=== PATIENT | female | born 1940 | race Caucasian/White ===

== ENCOUNTER 2017-03-12 11:23 | Outpatient (CLI) | payer MEDICARE, BC ==
[2017-03-12 19:18] LABS: BASOPHILS # (AUTO) 0.1 10^3/uL (0.0-0.1); EOSINOPHILS # (AUTO) 0.4 10^3/uL (0.0-0.7); EOSINOPHILS % (AUTO) 6.5 %; HCT - HEMATOCRIT 42.1 % (37.0-47.0); HGB - HEMOGLOBIN 14.1 g/dL (12.0-16.0); LYMPHOCYTES # (AUTO) 1.4 10^3/uL (1.5-3.5); LYMPHOCYTES % (AUTO) 23.5 %; MEAN CORPUSCULAR HEMOGLOBIN 32.1 pg (27.0-31.0); MEAN CORPUSCULAR HGB CONC 33.6 g/dL (32.0-36.0); MEAN CORPUSCULAR VOLUME 95.8 fL (81.0-99.0); MEAN PLATELET VOLUME 8.6 fL (7.9-10.8); MONOCYTES # (AUTO) 0.5 10^3/uL (0.0-1.0); MONOCYTES % (AUTO) 7.8 %; NEUTROPHILS # (AUTO) 3.6 10^3/uL (1.5-6.6); NEUTROPHILS % (AUTO) 60.2 %; NUCLEATED RED BLOOD CELLS AUTO 0.1 /100WBC; RED BLOOD COUNT 4.39 10^6/uL (4.20-5.40); RED CELL DISTRIBUTION WIDTH 12.5 % (12.0-15.0)
[2017-03-12 19:26] LABS: ALBUMIN/GLOBULIN RATIO 1.2 (1.0-2.2); BILIRUBIN,TOTAL 0.8 mg/dL (0.2-1.0); BUN - BLOOD UREA NITROGEN 18 mg/dL (6-20); CARBON DIOXIDE - CO2 26 mmol/L (21-32); CHLORIDE 105 mmol/L (101-111); CHOL/HDL RATIO 4.7 (<4.4); CHOLESTEROL 297 mg/dL; CREATININE 0.9 mg/dL (0.4-1.0); GFR - MDRD 61 (>89); GLUCOSE 109 mg/dL (70-100); HDL CHOLESTEROL 63 mg/dL; LDL/HDL RATIO 3.5 (<4.4); POTASSIUM 3.9 mmol/L (3.5-5.0); SODIUM 139 mmol/L (135-145); TOTAL PROTEIN 7.6 g/dL (6.7-8.2); TRIGLYCERIDES 79 mg/dL; VLDL CHOLESTEROL 16 mg/dL
== END 2017-03-12 11:24 | disposition home or self-care (01) ==
LOC: LAB.WCP 11:23
PROVIDERS: ATTEND Physician Assistant Medical
DX: E78.5 Hyperlipidemia, unspecified (principal); R21 Rash and other nonspecific skin eruption
CPT/HCPCS: 36415; 80053; 80061; 85025

== ENCOUNTER 2017-04-08 08:44 | Outpatient (CLI) | payer MEDICARE, BC ==
--- NOTE | 2017-04-08 11:00 | Ultrasound Report ---
LEFT BREAST ULTRASOUND: 04/08/2017 CLINICAL INDICATION: Nodule on diagnostic. TECHNIQUE: Real-time scanning was performed with franchise sales representative static images obtained. FINDINGS: Ultrasound of the left upper inner quadrant was performed. At the 10 o'clock position, 4 cm from the nipple, there is a hypoechoic lobulated nodule, measuring 1 .7 x 1.6 x 1.4 cm. There is peripheral vascularity and posterior acoustic shadowing. Scanning of the left axilla demonstrates no adenopathy. IMPRESSION: SUSPICIOUS ABNORMALITY, WITH A HYPOECHOIC LOBULATED NODULE CORRELATING WITH THE MAMMOGRA PHIC ABNORMALITY. RECOMMENDATION: BIOPSY. THE NODULE APPEARS AMENABLE TO ULTRASOUND-GUIDED CORE NEEDLE BIOPSY. BIRADS CATEGORY 4-SUSPICIOUS ABNORMALITY. Results and recommendations discussed with the patient at the time of the examination, and called to the office of Martha Call PA-C, on 04/08/2017. Biopsy is scheduled for 04/23/2017 at 9:45 a.m. JOB #: [id number] EXT JOB #:[id number]
--- NOTE | 2017-04-08 13:37 | Mammography Report ---
DIAGNOSTIC LEFT MAMMOGRAM: 04/08/2017 CLINICAL INDICATION: Possible developing density on screening. COMPARISON: 03/22/2017, 02/13/2016 TECHNIQUE: Left true lateral and spot compression views. FINDINGS: The left breast again demonstrates heterogeneously dense fibroglandular parenchyma. Coars e and punctate, typically benign calcifications are present. The density in question, in the left up per inner quadrant persists on additional compression, measuring approximately 1.8 cm. Please also r efer to left breast ultrasound of the same day. IMPRESSION: SUSPICIOUS ABNORMALITY, WITH A HYPOECHOIC LOBULATED LESION ON ULTRASOUND CORRELATING WIT H THE MAMMOGRAPHIC DENSITY. RECOMMENDATION: Biopsy. The nodule appears amenable to ultrasound-guided core needle biopsy. BIRADS CATEGORY 4 - SUSPICIOUS ABNORMALITY. RESULTS AND RECOMMENDATIONS DISCUSSED WITH THE PATIENT AT THE TIME OF THE EXAMINATION, AND CALLED TO THE OFFICE OF MATTHIAS DINH PA-C, ON 04/08/2017. BIOPSY IS SCHEDULED FOR 04/23/2017 AT 9:45 A.M. STANDARD QUALIFYING STATEMENTS 1. This examination was reviewed with the aid of Computer-Aided Detection (CAD). 2. A negative or benign imaging report should not delay biopsy if clinically suspicious findings are present. Consider surgical consultation if warranted. More than 5% of cancers are not identified by i wayne. 3. Dense breasts may obscure an underlying neoplasm. JOB #: [id number] EXT JOB #:[id number]
== END 2017-04-08 08:45 | disposition home or self-care (01) ==
LOC: DI 08:44
PROVIDERS: ATTEND Physician Assistant Medical
DX: N63.22 Unspecified lump in the left breast, upper inner quadrant (principal)
CPT/HCPCS: 76642; G0206

== ENCOUNTER 2017-04-23 09:23 | Outpatient (CLI) | payer MEDICARE, BC ==
[2017-04-23] MEDS ORDERED: BUPIVACAINE 0.25%-EPI 1:200000 PF 30 ML VIAL SUBQ ONE (11:03)
[2017-04-23] MEDS ORDERED: BUFFERED LIDOCAINE 10 ML SYRINGE IU ONE (11:03)
--- NOTE | 2017-04-23 12:32 | Ultrasound Report ---
REVISED: THIS REPORT WAS ORIGINALLY SIGNED ON 04/23/2017 @ 1314. NO CHANGES WERE MADE TO THE REPORT. THE ORIGINAL [facility] REQUISITION WAS REPRINTED ON 11/2016. ULTRASOUND-GUIDED BIOPSY LEFT BREAST: 04/23/2017 [employer]: 10 o'clock position 4 cm from the nipple, hypoechoic lobulated 1.6 x 1.7 x 1.4 cm mass. PROCEDURE: Informed consent is obtained from the patient. Ultrasound is used to locate and sandie the left breast mass. Using sterile technique and after the infiltration of local anesthetic of 1% lidocaine and Sensorcaine, a small skin kentrell is performed. Using a 14-gauge Achieve needle, four passes are made through the mass with image confirmation of needle position within the mass. A secure sandie Celero clip was then placed at the biopsy site. Post-procedure left breast mammogram confirms appropriate positioning of the clip with respect to the biopsy site. Patient tolerated the procedure well. Patient is scheduled for a followup appointment with Dr. Noguera. IMPRESSION: SUCCESSFUL LEFT BREAST CORE BIOPSY USING ULTRASOUND GUIDANCE. AN ADDENDUM WILL BE MADE TO THIS REPORT WHEN PATHOLOGY IS REVIEWED TO ESTABLISH CONCORDANCE. JOB #: [id number] EXT JOB #: [id number] TOYA
[2017-04-25 21:07] VITALS: BP 114/68
== END 2017-04-23 09:24 | disposition home or self-care (01) ==
LOC: DI 09:23
PROVIDERS: ATTEND Physician Assistant Medical
DX: C50.212 Malignant neoplasm of upper-inner quadrant of left female breast (principal); Z17.1 Estrogen receptor negative status [ER-]
CPT/HCPCS: 19083; G0206

== ENCOUNTER 2017-09-13 09:06 | Outpatient (CLI) | payer MEDICARE, BC ==
[2017-09-13 13:31] LABS: BASOPHILS % (AUTO) 0.4 %; EOSINOPHILS % (AUTO) 0.1 %; HGB - HEMOGLOBIN 12.7 g/dL (12.0-16.0); LYMPHOCYTES % (AUTO) 2.6 %; MEAN CORPUSCULAR HEMOGLOBIN 31.8 pg (27.0-31.0); MEAN CORPUSCULAR VOLUME 96.3 fL (81.0-99.0); MEAN PLATELET VOLUME 8.9 fL (7.9-10.8); MONOCYTES % (AUTO) 0.6 %; NEUTROPHILS % (AUTO) 96.3 %; PLT - PLATELET COUNT 324 10^3/uL (130-450); RED BLOOD COUNT 3.99 10^6/uL (4.20-5.40); RED CELL DISTRIBUTION WIDTH 14.5 % (12.0-15.0); WHITE BLOOD COUNT 23.2 x10^3/uL (4.8-10.8)
[2017-09-13 13:48] LABS: ALBUMIN 3.9 g/dL (3.2-5.5); ALBUMIN/GLOBULIN RATIO 1.1 (1.0-2.2); ALKALINE PHOSPHATASE 93 IU/L (42-121); ALT ALANINE AMINOTRANSFERASE 16 IU/L (10-60); AST ASPARTATE AMINOTRANSFERASE 31 IU/L (10-42); BILIRUBIN,TOTAL 0.8 mg/dL (0.2-1.0); BUN - BLOOD UREA NITROGEN 15 mg/dL (6-20); CALCIUM 9.2 mg/dL (8.5-10.3); CARBON DIOXIDE - CO2 22 mmol/L (21-32); CHLORIDE 104 mmol/L (101-111); CREATININE 0.7 mg/dL (0.4-1.0); GFR - MDRD 82 (>89); GLUCOSE 116 mg/dL (70-100); SODIUM 135 mmol/L (135-145); TOTAL PROTEIN 7.4 g/dL (6.7-8.2)
[2017-09-13 14:26] LABS: ABNORMAL LYMPHS % (MANUAL) 0 %
[2017-09-13 14:34] LABS: BAND NEUTROPHILS % (MANUAL) 3 %; BASOPHILS # (MANUAL) 0.2 10^3/uL (0-0.1); BASOPHILS % (MANUAL) 1 %; LYMPHOCYTES # (MANUAL) 0.2 10^3/uL (1.5-3.5); LYMPHOCYTES % (MANUAL) 1 %; METAMYELOCYTES % (MANUAL) 6 %; MONOCYTES # (MANUAL) 0.5 10^3/uL (0.0-1.0); MYELOCYTES % (MANUAL) 1 %; NEUTROPHILS # (MANUAL) 20.6 10^3/uL (1.5-6.6); NEUTROPHILS % (MANUAL) 86 %
[2017-09-13 14:36] LABS: RBC MORPHOLOGY (MULTIPLE) 2+ ANISOCYTOSIS (NORMAL)
[2017-09-13 14:38] LABS: DIFFERENTIAL COMMENT MANUAL DIFFERENTIAL; PLATELET MORPHOLOGY RARE GIANT PLATELETS (NORMAL)
== END 2017-09-13 09:07 | disposition home or self-care (01) ==
LOC: LAB.WCP 09:06
PROVIDERS: ATTEND Family Medicine
DX: R00.0 Tachycardia, unspecified (principal); C50.212 Malignant neoplasm of upper-inner quadrant of left female breast
CPT/HCPCS: 36415; 80053; 84443; 85025

== ENCOUNTER 2019-08-04 08:00 | Outpatient (CLI) | payer MEDICARE, BC ==
[2019-08-04 12:54] LABS: ALBUMIN 3.8 g/dL (3.2-5.5); ALBUMIN/GLOBULIN RATIO 1.2 (1.0-2.2); ALKALINE PHOSPHATASE 79 IU/L (42-121); ALT ALANINE AMINOTRANSFERASE 14 IU/L (10-60); AST ASPARTATE AMINOTRANSFERASE 40 IU/L (10-42); BILIRUBIN,TOTAL 0.8 mg/dL (0.2-1.0); BUN - BLOOD UREA NITROGEN 18 mg/dL (6-20); CALCIUM 9.5 mg/dL (8.5-10.3); CARBON DIOXIDE - CO2 25 mmol/L (21-32); CHLORIDE 105 mmol/L (101-111); CHOL/HDL RATIO 7.3 (<4.4); CHOLESTEROL 338 mg/dL; GFR - MDRD 54 (>89); GLUCOSE 97 mg/dL (70-100); HDL CHOLESTEROL 46 mg/dL; LDL CHOLESTEROL,CALCULATED 261 mg/dL; LDL/HDL RATIO 5.7 (<4.4); SODIUM 138 mmol/L (135-145); TOTAL PROTEIN 7.1 g/dL (6.7-8.2); VLDL CHOLESTEROL 31 mg/dL
== END 2019-08-04 23:59 | disposition home or self-care (01) ==
LOC: LAB.WCP 08:00
PROVIDERS: ATTEND Physician Assistant Medical
DX: E78.5 Hyperlipidemia, unspecified (principal)
CPT/HCPCS: 36415; 80053; 80061; 83721

== ENCOUNTER 2020-09-23 09:46 | Outpatient (CLI) | payer MEDICARE, BC ==
[2020-09-23 12:08] LABS: BASOPHILS # (AUTO) 0.1 10^3/uL (0.0-0.1); BASOPHILS % (AUTO) 1.3 %; EOSINOPHILS # (AUTO) 0.5 10^3/uL (0.0-0.7); EOSINOPHILS % (AUTO) 5.2 %; HCT - HEMATOCRIT 44.7 % (37.0-47.0); HGB - HEMOGLOBIN 14.7 g/dL (12.0-16.0); LYMPHOCYTES # (AUTO) 2.2 10^3/uL (1.5-3.5); LYMPHOCYTES % (AUTO) 24.7 %; MEAN CORPUSCULAR HEMOGLOBIN 31.9 pg (27.0-31.0); MEAN CORPUSCULAR HGB CONC 32.9 g/dL (32.0-36.0); MEAN PLATELET VOLUME 11.2 fL (7.9-10.8); MONOCYTES # (AUTO) 0.7 10^3/uL (0.0-1.0); MONOCYTES % (AUTO) 8.4 %; NEUTROPHILS # (AUTO) 5.2 10^3/uL (1.5-6.6); NEUTROPHILS % (AUTO) 59.6 %; PLT - PLATELET COUNT 231 10^3/uL (130-450); RED BLOOD COUNT 4.61 10^6/uL (4.20-5.40); RED CELL DISTRIBUTION WIDTH 12.5 % (12.0-15.0); WHITE BLOOD COUNT 8.7 x10^3/uL (4.8-10.8)
[2020-09-23 12:29] LABS: ALBUMIN/GLOBULIN RATIO 1.1 (1.0-2.2); ALKALINE PHOSPHATASE 84 IU/L (42-121); ALT ALANINE AMINOTRANSFERASE 14 IU/L (10-60); AST ASPARTATE AMINOTRANSFERASE 34 IU/L (10-42); BILIRUBIN,TOTAL 0.6 mg/dL (0.2-1.0); BUN - BLOOD UREA NITROGEN 16 mg/dL (6-20); CALCIUM 9.7 mg/dL (8.5-10.3); CARBON DIOXIDE - CO2 26 mmol/L (21-32); CHLORIDE 105 mmol/L (101-111); CHOL/HDL RATIO 6.4 (<4.4); CHOLESTEROL 334 mg/dL; GFR - MDRD 54 (>89); GLUCOSE 100 mg/dL (70-100); HDL CHOLESTEROL 52 mg/dL; LDL CHOLESTEROL,CALCULATED 241 mg/dL; LDL/HDL RATIO 4.6 (<4.4); SODIUM 142 mmol/L (135-145); TOTAL PROTEIN 7.7 g/dL (6.7-8.2); TRIGLYCERIDES 203 mg/dL; VLDL CHOLESTEROL 41 mg/dL
== END 2020-09-23 09:47 | disposition home or self-care (01) ==
LOC: LAB.N 09:46
PROVIDERS: ATTEND Physician Assistant Medical
DX: E78.5 Hyperlipidemia, unspecified (principal); R06.09 Other forms of dyspnea; C50.212 Malignant neoplasm of upper-inner quadrant of left female breast
CPT/HCPCS: 36415; 80053; 80061; 83721; 83880; 85025

== ENCOUNTER 2020-09-23 09:57 | Outpatient (CLI) | payer MEDICARE, BC ==
--- NOTE | 2020-09-23 10:27 | XRAY Report ---
PROCEDURE: Chest 2 View X-Ray INDICATIONS: DYSPNEA ON EXERTION TECHNIQUE: 2 views of the chest. COMPARISON: None. FINDINGS: Surgical changes and devices: Surgical clips are seen projecting over the left breast and left axilla . Lungs and pleura: No pleural effusions or pneumothorax. Lungs are clear. Mediastinum: Mediastinal contours are normal. Heart size is normal. Mild to moderate aortic athero sclerotic calcifications. Bones and chest wall: No suspicious bony abnormalities. Soft tissues appear unremarkable. Multilev el degenerative changes are seen in the spine. Chronic appearing fracture deformity of the left proxi mal humerus. IMPRESSION: No acute cardiopulmonary abnormality. Reviewed by: Davion Montana MD on 09/23/2020 10:25 AM PDT Approved by: Davion Montana MD on 09/23/2020 10:25 AM PDT Station ID: [id number]
== END 2020-09-23 09:58 | disposition home or self-care (01) ==
LOC: LAB.N 09:57 → DI.N 09:58
PROVIDERS: ATTEND Physician Assistant Medical
DX: R06.09 Other forms of dyspnea (principal); E78.5 Hyperlipidemia, unspecified; C50.212 Malignant neoplasm of upper-inner quadrant of left female breast
CPT/HCPCS: 36415; 80053; 80061; 83721; 83880; 85025

== ENCOUNTER 2021-09-21 07:38 | Outpatient (CLI) | payer MEDICARE, BC ==
[2021-09-21 13:12] LABS: BASOPHILS # (AUTO) 0.1 10^3/uL (0.0-0.1); BASOPHILS % (AUTO) 1.3 %; EOSINOPHILS # (AUTO) 0.3 10^3/uL (0.0-0.7); EOSINOPHILS % (AUTO) 4.1 %; HCT - HEMATOCRIT 45.1 % (37.0-47.0); HGB - HEMOGLOBIN 14.7 g/dL (12.0-16.0); LYMPHOCYTES # (AUTO) 1.9 10^3/uL (1.5-3.5); LYMPHOCYTES % (AUTO) 31.8 %; MEAN CORPUSCULAR HEMOGLOBIN 31.3 pg (27.0-31.0); MEAN CORPUSCULAR HGB CONC 32.6 g/dL (32.0-36.0); MEAN CORPUSCULAR VOLUME 96.2 fL (81.0-99.0); MEAN PLATELET VOLUME 10.6 fL (7.9-10.8); MONOCYTES # (AUTO) 0.6 10^3/uL (0.0-1.0); NEUTROPHILS # (AUTO) 3.2 10^3/uL (1.5-6.6); NEUTROPHILS % (AUTO) 52.3 %; PLT - PLATELET COUNT 209 10^3/uL (130-450); RED BLOOD COUNT 4.69 10^6/uL (4.20-5.40); RED CELL DISTRIBUTION WIDTH 12.5 % (12.0-15.0); WHITE BLOOD COUNT 6.1 x10^3/uL (4.8-10.8)
[2021-09-21 13:56] LABS: THYROID STIMULATING HORMONE 3.94 uIU/mL (0.34-5.60)
[2021-09-21 14:01] LABS: ALKALINE PHOSPHATASE 76 IU/L (42-121); ALT ALANINE AMINOTRANSFERASE 16 IU/L (10-60); AST ASPARTATE AMINOTRANSFERASE 37 IU/L (10-42); BILIRUBIN,TOTAL 0.5 mg/dL (0.2-1.0); BUN - BLOOD UREA NITROGEN 15 mg/dL (6-20); CALCIUM 9.8 mg/dL (8.5-10.3); CARBON DIOXIDE - CO2 26 mmol/L (21-32); CHLORIDE 105 mmol/L (101-111); CHOL/HDL RATIO 3.2 (<4.4); CHOLESTEROL 197 mg/dL; CREATININE 0.9 mg/dL (0.4-1.0); GFR - MDRD 60 (>89); GLUCOSE 120 mg/dL (70-100); HDL CHOLESTEROL 62 mg/dL; LDL CHOLESTEROL,CALCULATED 116 mg/dL; LDL/HDL RATIO 1.9 (<4.4); POTASSIUM 3.7 mmol/L (3.5-5.0); SODIUM 141 mmol/L (135-145); TOTAL PROTEIN 7.9 g/dL (6.7-8.2); TRIGLYCERIDES 97 mg/dL; VLDL CHOLESTEROL 19 mg/dL
[2021-09-21 14:11] LABS: ESTIMATED AVERAGE GLUCOSE 120 mg/dL (70-100); HEMOGLOBIN A1c% 5.8 % (4.27-6.07)
== END 2021-09-21 07:39 | disposition home or self-care (01) ==
LOC: LAB.N 07:38
PROVIDERS: ATTEND Physician Assistant Medical
DX: E78.5 Hyperlipidemia, unspecified (principal); R73.9 Hyperglycemia, unspecified; Z13.29 Encounter for screening for other suspected endocrine disorder; C50.212 Malignant neoplasm of upper-inner quadrant of left female breast
CPT/HCPCS: 36415; 80053; 80061; 83036; 83721; 84443; 85025

== ENCOUNTER 2021-11-27 08:00 | Outpatient (CLI) | payer MEDICARE, BC | END 2021-11-27 23:59 | disposition home or self-care (01) | LOC: LAB.N 08:00 | PROVIDERS: ATTEND Physician Assistant Medical | DX: R30.0 Dysuria (principal) | CPT/HCPCS: 87086; 87181 ==

== ENCOUNTER 2022-06-11 13:46 | Outpatient (CLI) | payer MEDICARE, BC ==
[2022-06-11 18:38] LABS: ALBUMIN/GLOBULIN RATIO 0.9 (1.0-2.2); ALKALINE PHOSPHATASE 87 IU/L (42-121); ALT ALANINE AMINOTRANSFERASE 15 IU/L (10-60); AST ASPARTATE AMINOTRANSFERASE 43 IU/L (10-42); BILIRUBIN,TOTAL 0.6 mg/dL (0.2-1.0); BUN - BLOOD UREA NITROGEN 14 mg/dL (6-20); CALCIUM 10.1 mg/dL (8.5-10.3); CARBON DIOXIDE - CO2 23 mmol/L (21-32); CHLORIDE 107 mmol/L (101-111); CHOL/HDL RATIO 2.8 (<4.4); CHOLESTEROL 165 mg/dL; CREATININE 1.1 mg/dL (0.4-1.0); GFR - MDRD 48 (>89); GLUCOSE 96 mg/dL (70-100); HDL CHOLESTEROL 60 mg/dL; LDL CHOLESTEROL,CALCULATED 83 mg/dL; LDL/HDL RATIO 1.4 (<4.4); SODIUM 140 mmol/L (135-145); TOTAL PROTEIN 8.4 g/dL (6.7-8.2); TRIGLYCERIDES 108 mg/dL; VLDL CHOLESTEROL 22 mg/dL
[2022-06-11 21:59] LABS: ESTIMATED AVERAGE GLUCOSE 123 mg/dL (70-100); HEMOGLOBIN A1c% 5.9 % (4.27-6.07)
== END 2022-06-11 13:47 | disposition home or self-care (01) ==
LOC: LAB.N 13:46
PROVIDERS: ATTEND Physician Assistant Medical
DX: E78.5 Hyperlipidemia, unspecified (principal); R73.9 Hyperglycemia, unspecified
CPT/HCPCS: 36415; 80053; 80061; 83036; 83721

== ENCOUNTER 2022-09-21 13:13 | Outpatient (CLI) | payer MEDICARE, BC ==
[2022-09-21 17:51] LABS: HCT - HEMATOCRIT 41.5 % (37.0-47.0); HGB - HEMOGLOBIN 13.5 g/dL (12.0-16.0); MEAN CORPUSCULAR HEMOGLOBIN 31.8 pg (27.0-31.0); MEAN CORPUSCULAR HGB CONC 32.5 g/dL (32.0-36.0); MEAN CORPUSCULAR VOLUME 97.6 fL (81.0-99.0); MEAN PLATELET VOLUME 10.9 fL (7.9-10.8); RED BLOOD COUNT 4.25 10^6/uL (4.20-5.40); RED CELL DISTRIBUTION WIDTH 13.4 % (12.0-15.0)
[2022-09-21 18:07] LABS: ALBUMIN 3.8 g/dL (3.2-5.5); CALCIUM 9.5 mg/dL (8.5-10.3); CREATININE 0.9 mg/dL (0.4-1.0); PHOSPHORUS 3.2 mg/dL (2.5-4.6)
[2022-09-21 18:14] LABS: CREATININE,URINE 134.1 mg/dL; PROTEIN/CREATININE RATIO,URINE 0.5 (<=0.2)
[2022-09-21 18:15] LABS: BILIRUBIN,URINE NEGATIVE (NEGATIVE); GLUCOSE, URINE (UA) NEGATIVE (NEGATIVE); KETONES,URINE (UA) NEGATIVE (NEGATIVE); LEUKOCYTE ESTERASE, URINE LARGE (NEGATIVE); NITRITE,URINE POSITIVE (NEGATIVE); OCCULT BLOOD,URINE MODERATE (NEGATIVE); PROTEIN,URINE 30 mg/dL (NEGATIVE); UROBILINOGEN,URINE 0.2 (NORMAL) E.U./dL (NORMAL)
[2022-09-21 18:18] LABS: CLARITY,URINE CLOUDY (CLEAR)
[2022-09-21 18:39] LABS: BACTERIA,URINE Moderate /HPF (None Seen); SQUAMOUS EPITHELIAL CELL,UR FEW Squamous (<= Few); WBC,URINE >25 /HPF (0-5)
[2022-09-22 04:09] LABS: COMPLEMENT C3 149 mg/dL (82-167); COMPLEMENT C4 33 mg/dL (12-38)
[2022-09-22 20:07] LABS: KAPPA FREE LT CHAINS SERUM 27.5 mg/L (3.3-19.4); KAPPA/LAMBDA RATIO SERUM 1.21 (0.26-1.65); LAMBDA FREE LT CHAINS SERUM 22.8 mg/L (5.7-26.3)
[2022-09-24 15:08] LABS: ANTINUCLEAR ANTIBODIES IFA Negative (.)
[2022-09-25 17:08] LABS: A/G RATIO 1.2 (0.7-1.7); ALBUMIN 3.9 g/dL (2.9-4.4); ALPHA-1-GLOBULIN 0.2 g/dL (0.0-0.4); ALPHA-2-GLOBULIN 0.8 g/dL (0.4-1.0); BETA GLOBULIN 1.1 g/dL (0.7-1.3); GAMMA GLOBULIN 1.2 g/dL (0.4-1.8); GLOBULIN TOTAL 3.3 g/dL (2.2-3.9); IMMUNOGLOBULIN A (IGA) 369 mg/dL (64-422); IMMUNOGLOBULIN G (IGG) 1262 mg/dL (586-1602); IMMUNOGLOBULIN M (IGM) 106 mg/dL (26-217); M-SPIKE Not Observed g/dL (Not Observed); PROTEIN TOTAL 7.2 g/dL (6.0-8.5)
== END 2022-09-21 13:14 | disposition home or self-care (01) ==
LOC: LAB.N 13:13
PROVIDERS: ATTEND Internal Medicine Nephrology
DX: N17.9 Acute kidney failure, unspecified (principal); R80.9 Proteinuria, unspecified; R31.29 Other microscopic hematuria
CPT/HCPCS: 36415; 80069; 81001; 81003; 81599; 82550; 82570; 82784; 83516; 83521; 83970; 84155; 84156; 84165; 85027; 86037; 86038; 86160; 86334; 87086; 87181

== ENCOUNTER 2023-09-04 13:43 | Outpatient (CLI) | payer MEDICARE, BC ==
[2023-09-04 17:45] LABS: BASOPHILS # (AUTO) 0.1 10^3/uL (0.0-0.1); BASOPHILS % (AUTO) 1.2 %; EOSINOPHILS # (AUTO) 0.3 10^3/uL (0.0-0.7); EOSINOPHILS % (AUTO) 4.5 %; HCT - HEMATOCRIT 44.1 % (37.0-47.0); HGB - HEMOGLOBIN 14.4 g/dL (12.0-16.0); LYMPHOCYTES # (AUTO) 1.4 10^3/uL (1.5-3.5); LYMPHOCYTES % (AUTO) 24.4 %; MEAN CORPUSCULAR HEMOGLOBIN 31.4 pg (27.0-31.0); MEAN CORPUSCULAR HGB CONC 32.7 g/dL (32.0-36.0); MEAN CORPUSCULAR VOLUME 96.3 fL (81.0-99.0); MEAN PLATELET VOLUME 10.7 fL (7.9-10.8); MONOCYTES # (AUTO) 0.5 10^3/uL (0.0-1.0); MONOCYTES % (AUTO) 8.6 %; NEUTROPHILS # (AUTO) 3.4 10^3/uL (1.5-6.6); NEUTROPHILS % (AUTO) 60.9 %; PLT - PLATELET COUNT 254 10^3/uL (130-450); RED BLOOD COUNT 4.58 10^6/uL (4.20-5.40); RED CELL DISTRIBUTION WIDTH 12.6 % (12.0-15.0); WHITE BLOOD COUNT 5.6 x10^3/uL (4.8-10.8)
[2023-09-04 18:07] LABS: ALBUMIN 4.2 g/dL (3.2-5.5); ALBUMIN/GLOBULIN RATIO 1.1 (1.0-2.2); ALKALINE PHOSPHATASE 102 IU/L (42-121); ALT ALANINE AMINOTRANSFERASE 10 IU/L (10-60); AST ASPARTATE AMINOTRANSFERASE 32 IU/L (10-42); BILIRUBIN,TOTAL 0.6 mg/dL (0.2-1.0); BUN - BLOOD UREA NITROGEN 13 mg/dL (6-20); CALCIUM 10.7 mg/dL (8.5-10.3); CARBON DIOXIDE - CO2 29 mmol/L (21-32); CHLORIDE 106 mmol/L (101-111); CHOL/HDL RATIO 5.2 (<4.4); CHOLESTEROL 301 mg/dL; CREATININE 0.9 mg/dL (0.6-1.3); GFR - MDRD 60 (>89); GLUCOSE 116 mg/dL (74-104); HDL CHOLESTEROL 58 mg/dL; LDL CHOLESTEROL,CALCULATED 220 mg/dL; LDL/HDL RATIO 3.8 (<4.4); POTASSIUM 4.1 mmol/L (3.5-4.5); SODIUM 141 mmol/L (135-145); TOTAL PROTEIN 7.9 g/dL (6.4-8.9); TRIGLYCERIDES 117 mg/dL (48-352); VLDL CHOLESTEROL 23 mg/dL
== END 2023-09-04 13:44 | disposition home or self-care (01) ==
LOC: LAB.N 13:43
PROVIDERS: ATTEND Physician Assistant Medical
DX: I10 Essential (primary) hypertension (principal); E78.5 Hyperlipidemia, unspecified
CPT/HCPCS: 36415; 80053; 80061; 83721; 85025

== ENCOUNTER 2023-12-06 20:24 | Outpatient (CLI) | payer MEDICARE, BC | END 2023-12-06 23:59 | disposition critical access hospital (66) | LOC: EMS 20:24 | DX: Z04.6 Encounter for general psychiatric examination, requested by authority (principal); R46.89 Other symptoms and signs involving appearance and behavior | CPT/HCPCS: A0425; A0429 ==

== ENCOUNTER 2023-12-06 20:38 | Emergency (ER) | payer MEDICARE, BC ==
--- NOTE | 2023-12-06 20:52 | ED Physician Documentation ---
PD HPI MHE - Stated complaint Stated Complaint: NEEDS SAFE PLACE - History obtained from History obtained from: Patient, EMS - Additional information Additional information: She presents by a months. She lives with her and she says they have been for more than 50 years. History from both paramedics and the patient. Basically sounds like tonight she started to get anxious about her somehow and did not want to stay with him. Police and neighbors were worried about her. 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 HEENT: Tonsil/Adenoidectomy - Present Medications Home Medications: Ambulatory Orders Medication Instructions Recorded Confirmed Ondansetron Odt [Zofran] 4 mg TL Q6H PRN #10 tablet 07/30/14 Oxycodone HCl/Acetaminophen 1 - 2 each PO Q6H PRN #15 tablet 07/30/14 [Percocet 5-325 mg Tablet] - Allergies Allergies/Adverse Reactions: Allergies Allergy/AdvReac Type Severity Reaction Status Date / Time Penicillins AdvReac Anaphylaxis Verified 12/06/23 21:10 - Social History Does the pt smoke?: No Smoking Status: Never smoker Does the pt drink ETOH?: No Does the pt have substance abuse?: No - Immunizations Immunizations are current?: Yes - POLST Patient has POLST: No PD ED PE NORMAL - Vitals Vital signs reviewed: Yes - General General: Alert and oriented X 3, No acute distress - Cardiac Cardiac: RRR, No murmur - Respiratory Respiratory: No respiratory distress, Clear bilaterally - Abdomen Abdomen: Normal bowel sounds, Soft, Non tender - Neuro Neuro: Alert and oriented X 3 Eye Opening: Spontaneous Motor: Obeys Commands Verbal: Oriented GCS Score: 15 - Psych Psych: Normal mood, Normal affect Results - Vitals Vitals: Vital Signs - 24 hr 12/06/23 21:11 Temperature 37.2 C Heart Rate 97 Respiratory 16 Rate Blood Pressure 138/67 H O2 Saturation 99 Oxygen O2 Source Room air - Labs Labs: Laboratory Tests 12/06/23 12/06/23 21:17 21:17 WBC 6.9 RBC 4.19 L Hgb 12.8 Hct 40.1 MCV 95.7 MCH 30.5 MCHC 31.9 L RDW 13.1 Plt Count 243 MPV 9.1 Neut # (Auto) 5.4 Lymph # (Auto) 0.8 L [place] # (Auto) 0.6 Eos # (Auto) 0.1 Baso # (Auto) 0.1 Absolute Nucleated RBC 0.00 Nucleated RBC % 0.0 Sodium 141 Potassium 4.1 Chloride 106 Carbon Dioxide 25 Anion Gap 10.0 BUN 12 Creatinine 1.0 Estimated GFR (MDRD) 53 L Glucose 105 H Calcium 10.1 Magnesium 1.8 Total Bilirubin 0.6 AST 30 ALT 14 Alkaline Phosphatase 80 Total Protein 7.9 Albumin 4.0 Globulin 3.9 Albumin/Globulin Ratio 1.0 Vitamin B12 276 Folate 13.9 PD Medical Decision Making - ED course ED course: Sounds like she may be getting dementia with some behavioral disturbances and that is what happened tonight. I did a Mini-Mental status examination and she scored 23 consistent with mild cognitive impairment. Although she is technically alert and oriented, she also clearly when you are talking to her does not really understand what is going on or the implications of some of the questioning. Waiting for family arrival. Toxic metabolic etiologies were also considered, as such basic lab work was done with unremarkable CBC and CMP. Specifically no hyponatremia. Care to Dr. Villeda at 10 PM shift change pending arrival with family. Departure - Departure Clinical Impression: Dementia Condition: Stable Instructions: ED Dementia Caregiver Support
[2023-12-06 21:22] LABS: BASOPHILS # (AUTO) 0.1 10^3/uL (0.0-0.1); EOSINOPHILS # (AUTO) 0.1 10^3/uL (0.0-0.7); EOSINOPHILS % (AUTO) 1.2 %; HCT - HEMATOCRIT 40.1 % (37.0-47.0); HGB - HEMOGLOBIN 12.8 g/dL (12.0-16.0); LYMPHOCYTES # (AUTO) 0.8 10^3/uL (1.5-3.5); LYMPHOCYTES % (AUTO) 10.8 %; MEAN CORPUSCULAR HEMOGLOBIN 30.5 pg (27.0-31.0); MEAN CORPUSCULAR HGB CONC 31.9 g/dL (32.0-36.0); MEAN CORPUSCULAR VOLUME 95.7 fL (81.0-99.0); MEAN PLATELET VOLUME 9.1 fL (7.9-10.8); MONOCYTES # (AUTO) 0.6 10^3/uL (0.0-1.0); MONOCYTES % (AUTO) 7.9 %; NEUTROPHILS # (AUTO) 5.4 10^3/uL (1.5-6.6); NEUTROPHILS % (AUTO) 78.4 %; PLT - PLATELET COUNT 243 10^3/uL (130-450); RED BLOOD COUNT 4.19 10^6/uL (4.20-5.40); RED CELL DISTRIBUTION WIDTH 13.1 % (12.0-15.0); WHITE BLOOD COUNT 6.9 x10^3/uL (4.8-10.8)
[2023-12-06 21:39] LABS: BILIRUBIN,TOTAL 0.6 mg/dL (0.2-1.0); CALCIUM 10.1 mg/dL (8.5-10.3); MAGNESIUM 1.8 mg/dL (1.7-2.3); POTASSIUM 4.1 mmol/L (3.5-4.5); TOTAL PROTEIN 7.9 g/dL (6.4-8.9)
[2023-12-07 01:30] VITALS: BP 124/67; O2SAT 98
--- NOTE | 2023-12-09 10:52 | ED Physician Documentation ---
ED Addendum - Addendum Addendum: 12/09/23 10:50 Patient here on change of shift awiting family to arrive to take her home to safe disposition. Daughter arrived from [facility] about 1 am, to take pt home and be with her and decide further arrangements tomorrow/weekend. Disposition: discharge home stable condition. Diagnoses: confusion mild dementia.
== END 2023-12-07 01:24 | disposition home or self-care (01) ==
LOC: EDUNIT# → ED 20:38
DX: F03.90 Unspecified dementia, unspecified severity, without behavioral disturbance, psychotic disturbance, mood disturbance, and anxiety (principal)
CPT/HCPCS: 36415; 80053; 82607; 82746; 83735; 85025; 99283

== ENCOUNTER 2023-12-12 21:27 | Outpatient (CLI) | payer MEDICARE, BC | END 2023-12-12 23:59 | disposition EMS.NT | LOC: EMS 21:27 | DX: Z04.6 Encounter for general psychiatric examination, requested by authority (principal) ==

== ENCOUNTER 2024-01-14 08:51 | Outpatient (CLI) | payer MEDICARE, BC ==
[2024-01-14 12:29] LABS: BASOPHILS # (AUTO) 0.1 10^3/uL (0.0-0.1); BASOPHILS % (AUTO) 1.1 %; EOSINOPHILS # (AUTO) 0.8 10^3/uL (0.0-0.7); EOSINOPHILS % (AUTO) 10.5 %; HCT - HEMATOCRIT 42.6 % (37.0-47.0); HGB - HEMOGLOBIN 13.5 g/dL (12.0-16.0); LYMPHOCYTES # (AUTO) 1.9 10^3/uL (1.5-3.5); LYMPHOCYTES % (AUTO) 24.7 %; MEAN CORPUSCULAR HEMOGLOBIN 31.5 pg (27.0-31.0); MEAN CORPUSCULAR HGB CONC 31.7 g/dL (32.0-36.0); MEAN CORPUSCULAR VOLUME 99.5 fL (81.0-99.0); MEAN PLATELET VOLUME 10.5 fL (7.9-10.8); MONOCYTES # (AUTO) 0.6 10^3/uL (0.0-1.0); MONOCYTES % (AUTO) 7.5 %; NEUTROPHILS # (AUTO) 4.2 10^3/uL (1.5-6.6); NEUTROPHILS % (AUTO) 55.7 %; PLT - PLATELET COUNT 307 10^3/uL (130-450); RED BLOOD COUNT 4.28 10^6/uL (4.20-5.40); RED CELL DISTRIBUTION WIDTH 14.1 % (12.0-15.0); WHITE BLOOD COUNT 7.5 x10^3/uL (4.8-10.8)
[2024-01-14 12:36] LABS: ALBUMIN 4.2 g/dL (3.2-5.5); ALBUMIN/GLOBULIN RATIO 1.1 (1.0-2.2); BILIRUBIN,TOTAL 0.4 mg/dL (0.2-1.0); CALCIUM 9.9 mg/dL (8.5-10.3); CREATININE 0.9 mg/dL (0.6-1.3); POTASSIUM 3.5 mmol/L (3.5-4.5); TOTAL PROTEIN 7.9 g/dL (6.4-8.9)
[2024-01-14 13:01] LABS: BILIRUBIN,URINE SMALL (NEGATIVE); GLUCOSE, URINE (UA) NEGATIVE (NEGATIVE); KETONES,URINE (UA) NEGATIVE (NEGATIVE); LEUKOCYTE ESTERASE, URINE MODERATE (NEGATIVE); NITRITE,URINE NEGATIVE (NEGATIVE); OCCULT BLOOD,URINE LARGE (NEGATIVE); PROTEIN,URINE >=300 mg/dL (NEGATIVE); UROBILINOGEN,URINE 0.2 (NORMAL) E.U./dL (NORMAL)
[2024-01-14 13:11] LABS: CLARITY,URINE SL. CLOUDY (CLEAR)
[2024-01-14 13:16] LABS: BACTERIA,URINE Few /HPF (None Seen); RBC,URINE TNTC /HPF (0-5); SQUAMOUS EPITHELIAL CELL,UR RARE Squamous (<= Few)
== END 2024-01-14 08:52 | disposition home or self-care (01) ==
LOC: LAB.N 08:51
PROVIDERS: ATTEND Physician Assistant Medical
DX: N18.2 Chronic kidney disease, stage 2 (mild) (principal); R30.0 Dysuria
CPT/HCPCS: 36415; 80053; 81001; 85025; 87086

== ENCOUNTER 2024-07-16 13:41 | Inpatient (IN) ==
--- NOTE | 2024-07-16 15:03 | ED Physician Documentation ---
History of Present Illness Stated complaint Stated Complaint: GLF,LT HIP PX Chief complaint Chief Complaint: Trauma Ext History obtained from History obtained from: Patient Additonal information Additional information: Hiram is an 83 yo female brought in by herself after she was walking out side the hospital after an appointment and turned around to see car coming and fell and landed on her hip. Patient is unsure if she hit her head. No LOC. She is able to recall events well. She is not on blood thinners. She has had a subdural hematoma in the past and [facility] scan. No chest pain or back pain. She landed on her left hip,no previous truama to her left hip. No numbness, tingling or back pain associated with her fall. Meds/Allgy Home Medications Ambulatory Orders Medication Instructions Recorded Confirmed cyclobenzaprine 5 mg tablet 5 mg PO TID PRN muscle spasm 03/27/24 07/17/24 metoprolol succinate 25 mg 25 mg PO .bedtime 03/27/24 07/17/24 tablet,extended release 24 hr rosuvastatin 10 mg tablet 10 mg PO QDAY 03/27/24 07/17/24 tizanidine 2 mg tablet 2 mg PO BID 03/27/24 07/17/24 paroxetine HCl 40 mg tablet 40 mg PO QDAY #90 tabs 04/13/24 07/17/24 zolpidem 10 mg tablet 10 mg PO .night #90 tabs 07/08/24 07/17/24 Allergies Allergies Allergy/AdvReac Type Severity Reaction Status Date / Time adhesive tape Allergy Unknown Verified 07/16/24 13:47 ciprofloxacin (From Cipro) Allergy Unknown Verified 07/16/24 13:47 Penicillins AdvReac Anaphylaxis Verified 07/16/24 13:47 PFSH Active Problems All Active Problems (Updated 07/20/24 @ 00:37 by Zeny Nix PA-C) Anemia (Acute) Fracture of left hip (Acute) Urge incontinence (Acute) Insomnia (Acute) Depression (Acute) Lumbar degenerative disc disease (Acute) Hyperglycemia (Acute) Breast cancer (Acute) Chronic renal insufficiency (Acute) Hypertension, essential, benign (Acute) Hypercalcemia (Acute) Subdural hemorrhage following injury (Acute) Ureteral stone (Acute) Social History Social History Smoking Status: Never smoker Relationship: Level: Independent Do you feel safe in your home environment?: Yes Suffered physical, verbal, emotional, or financial abuse?: No History of Abuse: No ETOH Use: None POLST Patient has POLST: No Exam Constitutional normal general appearance Patient does not appear in significant distress here in [facility] ED, she is alert and answering questions appropriately. HENMT normocephalic and head/scalp atraumatic Eyes PERRL, EOMs intact bilaterally and conjunctivae normal Neck/C-Spine visual inspection normal and cervical full ROM noted no c spine tenderness. Lymph no lymphadenopathy noted Chest inspection of chest normal Respiratory breath sounds equal bilaterally, normal respiratory effort and clear to auscultation bilaterally Cardiovascular normal heart rate noted, regular rhythm noted, no gallop, no rub and no murmur Back/Pelvis Left leg is shortned and abbducted on examination. pulses remain intact distally. sensation intact. Good capilary refill. No right leg injury. She has no lumbar or thoracic tenderness on examination or palpation. Extremities Moving upper extremities without difficulty here in the ED. Skin skin color normal Results Vitals Vitals: Oxygen O2 Source Room air Labs Labs: Laboratory Tests 07/16/24 15:20 WBC 7.7 RBC 3.88 L Hgb 12.6 Hct 38.5 MCV 99.2 H MCH 32.5 H MCHC 32.7 RDW 13.0 Plt Count 218 MPV 10.2 Neut # (Auto) 5.7 Lymph # (Auto) 1.0 L [place] # (Auto) 0.7 Eos # (Auto) 0.3 Baso # (Auto) 0.1 Absolute Nucleated RBC 0.00 Nucleated RBC % 0.0 Sodium 140 Potassium 4.6 H Chloride 107 Carbon Dioxide 28 Anion Gap 5.0 L BUN 17 Creatinine 1.0 Estimated GFR (MDRD) 53 L Glucose 149 H Calcium 9.6 Total Bilirubin 0.3 AST 37 ALT 16 Alkaline Phosphatase 71 Total Protein 6.0 L Albumin 3.7 Globulin 2.3 Albumin/Globulin Ratio 1.6 PD Medical Decision Making ED course Complexity details: reviewed old records ED course: Patient is 83 yo female presenting after a fall in hospital parking lot after turning quickly and tripping. NO LOC and she is not on blood thinners. SHe has significnat pain to her left hip. She was unable to walk on it after andrade. She has pulses and sensation intact distally. Initial x-ray of the left hip shoes acute fracture intertrochanteric. I discussed case with Dr. Villanueva division traffic superintendent orthopedics who notes he will plan for surgery tomorrow and he will see her to noman, as patient should be admitted under hospitalist. I discussed reassuring work up with hospitalist Dr. Annalise Bro after negative head CT and negative Cervical spine. CT of left leg also obtained confirming inter trochanteric fracture. THere was a small abrasion to left anterior knee and DR. Villanueva was updated. Patient was admitted and pain was under control. Patient agreeable with admission at this time. Discharge Plan Discharge Patient Disposition: 67 [facility] DC/Xfer Clinical Impression: Fracture of left hip Qualifiers: Encounter type: initial encounter Fracture type: closed Qualified Code(s): S72.002A - Fracture of unspecified part of neck of left femur, initial encounter for closed fracture Interventions: ED Discharge Assessment Last Done: 07/16/24 19:15
[2024-07-16] MEDS: MORPHINE 2 MG/ML CARPUJECT IVP STA ×2 (15:21→17:44)
--- NOTE | 2024-07-16 15:34 | XRAY Report ---
PROCEDURE: XR Femur 2+V LT INDICATIONS: Trauma TECHNIQUE: 2 views of the femur were acquired. COMPARISON: None. FINDINGS: Bones: There is a comminuted displaced intertrochanteric fracture with angulation. No gross dislocat ion at the joint space. Degenerative changes are present at the knee. Soft tissues: No suspicious soft tissue calcifications or masses. Partially visualized presumed ri ght ureterovesicular stent. IMPRESSION: Comminuted displaced intertrochanteric left femoral fracture with angulation. Reviewed by: Meredith Garcia MD on 07/16/2024 3:32 PM PST Approved by: Meredith Garcia MD on 07/16/2024 3:32 PM [facility] Station ID: [id number]
[2024-07-16 16:13] LABS: BASOPHILS # (AUTO) 0.1 10^3/uL (0.0-0.1); EOSINOPHILS # (AUTO) 0.3 10^3/uL (0.0-0.7); EOSINOPHILS % (AUTO) 3.5 %; HCT - HEMATOCRIT 38.5 % (37.0-47.0); HGB - HEMOGLOBIN 12.6 g/dL (12.0-16.0); LYMPHOCYTES % (AUTO) 12.5 %; MEAN CORPUSCULAR HEMOGLOBIN 32.5 pg (27.0-31.0); MEAN CORPUSCULAR HGB CONC 32.7 g/dL (32.0-36.0); MEAN CORPUSCULAR VOLUME 99.2 fL (81.0-99.0); MEAN PLATELET VOLUME 10.2 fL (7.9-10.8); MONOCYTES # (AUTO) 0.7 10^3/uL (0.0-1.0); MONOCYTES % (AUTO) 8.9 %; NEUTROPHILS # (AUTO) 5.7 10^3/uL (1.5-6.6); NEUTROPHILS % (AUTO) 73.3 %; PLT - PLATELET COUNT 218 10^3/uL (130-450); RED BLOOD COUNT 3.88 10^6/uL (4.20-5.40); WHITE BLOOD COUNT 7.7 x10^3/uL (4.8-10.8)
[2024-07-16 16:25] LABS: ALBUMIN 3.7 g/dL (3.2-5.5); ALBUMIN/GLOBULIN RATIO 1.6 (1.0-2.2); BILIRUBIN,TOTAL 0.3 mg/dL (0.2-1.0); CALCIUM 9.6 mg/dL (8.5-10.3); POTASSIUM 4.6 mmol/L (3.5-4.5)
--- NOTE | 2024-07-16 16:27 | CT Report ---
PROCEDURE: CT Head WO INDICATIONS: fall head injury TECHNIQUE: Noncontrast 4.5 mm thick angled axial sections acquired from the foramen magnum to the vertex. For r adiation dose reduction, the following was used: automated exposure control, adjustment of mA and/or kV according to patient size. COMPARISON: 07/16/2024 at 1454 hours. Current study is dated 07/16/2024 1526 hours. FINDINGS: Image quality: There is some patient motion artifact. CSF spaces: Basal cisterns are patent. No extra-axial fluid collections. Ventricles are normal in size and shape. Brain: No midline shift. No intracranial masses or hemorrhage. Watson-white matter interface is norm al. Intracranial carotid calcifications. Age-related volume loss and small vessel ischemic change.. Skull and face: Calvarium and visualized facial bones are intact, without suspicious lesions. Sinuses: Visualized sinuses and mastoids are clear. IMPRESSION: No significant interval change. No acute intracranial process. Comment: If suspect acute infarct, consider brain MRI. Reviewed by: Pablito Leary MD on 07/16/2024 4:25 PM PST Approved by: Pablito Leary MD on 07/16/2024 4:25 PM PST Station ID: [id number]
--- NOTE | 2024-07-16 16:28 | CT Report ---
PROCEDURE: CT Cervical Spine WO INDICATIONS: fall TECHNIQUE: Noncontrast 3 mm thick sections acquired from the skull base to the T4 level. Sagittal and coronal r eformats were then constructed. For radiation dose reduction, the following was used: automated exp osure control, adjustment of mA and/or kV according to patient size. COMPARISON: None. FINDINGS: Image quality: Excellent. Bones: No fractures or dislocations. Visualized superior ribs are intact. Diffuse cervical spondyl itic change. Osteopenia. Soft tissues: Prevertebral soft tissues are normal in thickness. No paravertebral hematomas. No ap ical pneumothoraces. IMPRESSION: No acute, displaced fracture or traumatic subluxation. Cervical spondylosis, osteopenia. Reviewed by: Pablito Leary MD on 07/16/2024 4:27 PM [facility] Approved by: Pablito Leary MD on 07/16/2024 4:27 PM [facility] Station ID: [id number]
--- NOTE | 2024-07-16 16:31 | CT Report ---
PROCEDURE: CT Lower Extremity LT WO INDICATIONS: left lower extremity fracture TECHNIQUE: Noncontrast 3-mm axial sections acquired supra-acetabular region of the left pelvis through the proxi mal third of the left femur. A small [id number] was utilized, focusing on the hip., with coronal a nd sagittal reformats. For radiation dose reduction, the following was used: automated exposure con trol, adjustment of mA and/or kV according to patient size. COMPARISON: None. FINDINGS: Image quality: Excellent. Bones: Markedly comminuted, displaced intertrochanteric fracture of the left hip with varus angulati on. No dislocation. Soft tissues: No significant soft tissue abnormality identified. Impression: Markedly comminuted intratrochanteric fracture of the left hip. Reviewed by: Pablito Leary MD on 07/16/2024 4:30 PM PST Approved by: Pablito Leary MD on 07/16/2024 4:30 PM PST Station ID: [id number]
--- NOTE | 2024-07-16 18:02 | HISTORY & PHYSICAL EXAMINATION ---
Chief Complaint Chief Complaint Chief Complaint: L hip pain s/p ground level fall History of Present Illness Admitted From Admitted From:: Emergency department History Obtained From History obtained from: Patient Exam Limitations: Patient unable to sit up History of Present Illness HPI Comment/Other: Patient is a 83 year old female with a history of CHF, chronic renal insufficiency, hypertension, and subdural hemorrhage presents to the ED today following a ground level fall in the hospital parking lot. Patient was here at the hospital for a CT scan and was walking back to her car when she tripped and fell, landing on her left hip. Patient denies feeling dizzy or lightheaded prior to her fall. She also denies any chest pain, heart palpitations, shortness of breath or difficulty breathing. Patient was lying supine in bed with her left leg shortened and externally rotated. She stated she was in significant pain and requested medication for that. She was alert and oriented and seemed to be a good historian. She was not on oxygen and her respiratory effort was normal. Patient did admit to regularly experiencing dyspnea if she walks too far. She states she can walk around the grocery store or a [employer] if she has a shopping cart to hold on to. She is unable to exercise any more than that. Her kidney function is declining, patient said she does not want dialysis when it gets to that point. She lives alone in her own home, her last month. Patient has a daughter who lives in [place] and a son in [place]. She has a third son who lives [place]. She normally manages her ADLs without difficulty. She walks unassisted without a cane or a walker. When asked about advanced care planning, patient stated she wished to be DNR. She is ok with short term intubation if her prognosis is good. Her PCP is KATHRYN Call in [place]. Meds/Allgy Home Medications Ambulatory Orders Medication Instructions Recorded Confirmed cyclobenzaprine 5 mg tablet 5 mg PO TID PRN 03/27/24 07/14/24 metoprolol succinate 25 mg 25 mg PO .bedtime 03/27/24 07/14/24 tablet,extended release 24 hr rosuvastatin 10 mg tablet 10 mg PO QDAY 03/27/24 07/14/24 tizanidine 2 mg tablet 2 mg PO BID 03/27/24 07/14/24 paroxetine HCl 40 mg tablet 40 mg PO QDAY #90 tabs 04/13/24 07/14/24 zolpidem 10 mg tablet 10 mg PO .night #90 tabs 07/08/24 07/14/24 Allergies Allergies Allergy/AdvReac Type Severity Reaction Status Date / Time adhesive tape Allergy Unknown Verified 07/16/24 13:47 ciprofloxacin (From Cipro) Allergy Unknown Verified 07/16/24 13:47 Penicillins AdvReac Anaphylaxis Verified 07/16/24 13:47 PFSH Active Problems All Active Problems (Updated 07/16/24 @ 18:09 by Varun Kearns MD) Fracture of left hip (Acute) Urge incontinence (Acute) Insomnia (Acute) Depression (Acute) Lumbar degenerative disc disease (Acute) Hyperglycemia (Acute) Breast cancer (Acute) Chronic renal insufficiency (Acute) Hypertension, essential, benign (Acute) Hypercalcemia (Acute) Subdural hemorrhage following injury (Acute) Ureteral stone (Acute) Social History Social History Smoking Status: Never smoker Relationship: Do you feel safe in your home environment?: Yes Suffered physical, verbal, emotional, or financial abuse?: No History of Abuse: No ETOH Use: None POLST Patient has POLST: No POLST Status: DNR Review of Systems Constitutional Reports: Fatigue; Denies: Fever, Chills, Malaise or Weakness Eyes Denies: Pain, Irritation, Amaurosis or Blurry vision Ears, nose, mouth, and throat Denies: Ear pain, Ear discharge, Hearing loss, Nasal discharge, Nasal congestion, Vertigo, Neck pain or Throat swelling Cardiovascular Reports: shortness of breath with exertion and Decreased exercise tolerance; Denies: chest pain, palpitations, edema, swelling of feet/ankles, Syncope or lightheadedness Respiratory Reports: Shortness of breath; Denies: Cough, Sputum production, Wheezing, Coughing up blood or SOB at rest Gastrointestinal Reports: Diarrhea; Denies: Abdominal pain, Abdominal distention, Nausea, Vomiting, Constipation, Bloating or Belching Genitourinary Reports: Urinary frequency, Urinary urgency and Difficulty voiding Musculoskeletal Reports: Extremity pain (Current hip fracture); Denies: Back pain, Neck pain or Extremity swelling Integumentary/Breast Denies: Rash, Itching, Dryness or Redness Neurological Reports: General weakness; Denies: Headache, Focal weakness, Weakness in extremities, Dizziness, Vertigo, Confusion or Slurred speech Psychiatric Reports: Depression; Denies: Anxiety, Mood swings or Panic attacks Endocrine Reports: Fatigue; Denies: Excessive urination, Excessive thirst or Polyphagia Hematologic/Lymphatic Denies: Anemia, Easy bruising or Petechiae Allergic/Immunologic Denies: Hives, Throat swelling, Tongue swelling or Wheezing Prior Level of Functionality: Independent Exam Constitutional normal general appearance, no apparent distress and average body habitus HENMT normocephalic and head/scalp atraumatic Eyes PERRL, EOMs intact bilaterally and conjunctivae normal Neck/C-Spine visual inspection normal and trachea midline Lymph no lymphadenopathy noted Chest inspection of chest normal Respiratory breath sounds equal bilaterally, normal respiratory effort and clear to auscultation bilaterally Cardiovascular normal heart rate noted, regular rhythm noted, no gallop, no rub, no murmur and no JVD Gastrointestinal abdomen normal to inspection, abdomen soft to palpation, nontender to palpation and normoactive bowel sounds Genitourinary no CVA tenderness Back/Pelvis spine normal to inspection and no thoracic spine tenderness Extremities Left leg shortened and externally rotated, abrasion of left knee 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 Patient had a CT scan which showed a markedly comminuted intratrochanteric fracture of the left hip. Will consult with orthopedic surgery for surgical repair of the fracture and provide analgesia as needed. NPO ordered after midnight. Pain control with Tylenol, [place], morphine for pain. RCRI of 0 - patient states she was "developing" heart failure but has not had a formal diagnosis of such. No active chest pain or shortness of breath at this time. METS > 4, able to walk up a few flights of stairs. CAD risk factors include hypertension and obesity. EKG ordered, pending. Qualifiers: Encounter type: initial encounter Fracture type: closed Qualified Code(s): S72.002A - Fracture of unspecified part of neck of left femur, initial encounter for closed fracture (2) Hypertension, essential, benign: Plan: Chronic problem. Patient takes metoprolol at home for this. Her BP in the emergency department was normal. We will continue patient's home regimen at this time. (3) Chronic renal insufficiency: Plan: Creatinine stable around baseline of 1.0. Continue to trend. Qualifiers: Chronic kidney disease stage: stage 2 (GFR 60-89) Qualified Code(s): N 18.2 - Chronic kidney disease, stage 2 (mild) (4) Depression: Plan: Patient is on paroxetine at home. We will continue patient's home medication regimen. Qualifiers: Depression Type: unspecified Qualified Code(s): F32.A - Depression, unspecified Lab Results Lab results reviewed: Yes 07/16/24 15:20 07/16/24 15:20 Diagnostic Imaging Results Diagnostic Imaging Results: positive Final report reviewed Core Measures Anticipated LOS I expect patient to be DC'd or transferred within 96 hours.: Yes DVT/VTE - Prophylaxis VTE/DVT Device ordered at admit?: Yes
[2024-07-16] MEDS ORDERED: SODIUM CHLORIDE FLUSH 0.9% 10 ML SYRINGE IVP PRN (18:25)
[2024-07-16] MEDS ORDERED: ACETAMINOPHEN 325 MG TABLET PO PRN (18:25)
[2024-07-16] MEDS: HYDROcod/ACETAM 5/325 MG TABLET PO PRN (19:02)
[2024-07-16] MEDS: ATORVASTATIN 10 MG TABLET PO SCH (21:33)
[2024-07-16] MEDS: METOPROLOL SUCCINATE 25 MG TABLET PO SCH (21:33)
[2024-07-16] MEDS: ZOLPIDEM 5 MG TABLET PO SCH (21:33)
[2024-07-16] MEDS: MORPHINE 2 MG/ML CARPUJECT IVP PRN (23:52)
[2024-07-16] MEDS: IBUPROFEN 400 MG TABLET PO PRN (23:53)
[2024-07-17] MEDS: SODIUM CHLORIDE FLUSH 0.9% 10 ML SYRINGE IVP SCH (00:43)
--- NOTE | 2024-07-17 06:45 | PREOP HISTORY & PHYSICAL ---
Surgical History & Physical Chief Complaint/HPI History of Present Illness: CC: LEFT Hip Fracture HPI: 83yo F with a past medical history of hypertension, chronic renal insufficiency, breast cancer, subdural hemorrhage and depression presents the emergency department today for a ground-level fall. She reports that she was walking through the parking lot and tripped and fell. She had immediate pain in the left hip. She was brought to the emergency department where they obtained radiographs which demonstrated her left intertrochanteric hip fracture. Home Meds and Allergies Active Medications Generic Name Dose Route Start Last Admin Trade Name Freq PRN Reason Stop Dose Admin Acetaminophen 650 mg 07/16/24 18:25 Acetaminophen 325 Mg Tablet PO Q4HR PRN Pain 1 to 4, or Fever Hydrocodone Bitart/Acetaminophen 1 tab 07/16/24 18:25 07/16/24 19:02 Hydrocod/Acetam 5/325 Mg Tablet PO 1 tab Q4HR PRN Administration Pain 5 to 7 Atorvastatin Calcium 20 mg 07/16/24 21:00 07/16/24 21:33 Atorvastatin 10 Mg Tablet PO 20 mg QPM MARY Administration Ibuprofen 400 mg 07/16/24 18:25 07/16/24 23:53 Ibuprofen 400 Mg Tablet PO 400 mg Q4HR PRN Administration Pain 1 to 4 Metoprolol Succinate 25 mg 07/16/24 21:00 07/16/24 21:33 Metoprolol Succinate 25 Mg Tablet PO 25 mg QPM MARY Administration Morphine Sulfate 2 mg 07/16/24 18:25 07/16/24 23:52 Morphine 2 Mg/Ml Carpuject IVP 2 mg Q4HR PRN Administration Pain 8 to 10 Paroxetine HCl 40 mg 07/17/24 09:00 Paroxetine 10 Mg Tablet PO DAILY MARY Sodium Chloride 10 ml 07/16/24 18:25 Sodium Chloride Flush 0.9% 10 Ml Syringe IVP PRN PRN NEEDED PER PROVIDER ORDERS Sodium Chloride 10 ml 07/17/24 01:00 07/17/24 00:43 Sodium Chloride Flush 0.9% 10 Ml Syringe IVP 10 ml 0100,0900,1700 MARY Administration Zolpidem Tartrate 10 mg 07/16/24 21:00 07/16/24 21:33 Zolpidem 5 Mg Tablet PO 10 mg QPM MARY Administration cyclobenzaprine 5 mg tablet 5 mg PO TID PRN 03/27/24 metoprolol succinate 25 mg tablet,extended release 24 hr 25 mg PO .bedtime 03/27/24 rosuvastatin 10 mg tablet 10 mg PO QDAY 03/27/24 tizanidine 2 mg tablet 2 mg PO BID 03/27/24 paroxetine HCl 40 mg tablet 40 mg PO QDAY #90 tabs 04/13/24 zolpidem 10 mg tablet 10 mg PO .night #90 tabs 07/08/24 Allergies Allergy/AdvReac Type Severity Reaction Status Date / Time adhesive tape Allergy Unknown Verified 07/16/24 13:47 ciprofloxacin (From Cipro) Allergy Unknown Verified 07/16/24 13:47 Penicillins AdvReac Anaphylaxis Verified 07/16/24 13:47 Vital Signs O2 Saturation: 94 Patient Review Patient Review Pertinent Tests Reviewed [facility] Social History Social History Smoking Status: Never smoker Relationship: Level: Independent Do you feel safe in your home environment?: Yes Suffered physical, verbal, emotional, or financial abuse?: No History of Abuse: No ETOH Use: None POLST Patient has POLST: No POLST Status: DNR Exam Exam LEFT Hip: Inspection: No erythema, swelling, bruising, atrophy. ROM deferred due to known fracture Neurovascular exam: Fires ta/gc/ehl; SILT s/s/sp/dp/t, 2+ dp Imaging: Left femur radiographs on July 16, 2024: Displaced intertrochanteric femur fracture Assessment & Plan Assessment & Plan Assessment & Plan: 83yo F with a past medical history of hypertension, chronic renal insufficiency, breast cancer, subdural hemorrhage and depression with a displaced left femur intertrochanteric fracture. For optimal outcomes and quick return to ambulation it was recommended the patient undergo operative management of their left intertrochanteric femur fracture. The risk, benefits and alternatives of the procedure were discussed with the patient to include bleeding, infection, damage to surrounding structures, nonunion, malunion, need for additional surgeries, ongoing hip stiffness, ongoing hip pain and anesthesia risk such as heart attack, stroke and . The patient understood these risks wanted move forward with the procedure. Consent was completed today. PLAN: Hospitalist admission Nonweightbearing left lower extremity NPO for OR Operative management of the left hip fracture on July 17, 2024 ASA for DVT Prophylaxis starting POD1 The patient had the treatment plan explained, questions answered and seemed satisfied with the plan. There were no apparent barriers to communication. The documentation in this note may have been entered with the assistance of computer voice recognition and dictation software. Therefore, it may contain unintended errors in text, spelling, punctuation, or grammar. Edmund Banda MD Orthopedic Surgeon
[2024-07-17] MEDS ORDERED: TRANEXAMIC ACID 1,000 MG in SODIUM CHLORIDE 0.9% 100ML 100 ML IV PRN (06:56)
--- NOTE | 2024-07-17 07:08 | ANESTHESIA PROCEDURE NOTE ---
Pre-Anesthesia VS, & Labs Diagnosis Surgical Diagnosis:: L hip fx Procedure Procedure: L hip pinning Vitals Vital Signs: Temp Pulse Resp BP Pulse Ox 36.6 C 73 18 100/57 L 95 07/17/24 07:29 07/17/24 07:29 07/17/24 07:29 07/17/24 07:29 07/17/24 07:29 NPO NPO: >8 hours Is Patient ?: No Lab Results Current Lab Results: Laboratory Tests 07/17/24 07:23: POC Whole Bld Glucose 114 07/16/24 15:20: WBC 7.7, RBC 3.88 L, Hgb 12.6, Hct 38.5, MCV 99.2 H, MCH 32.5 H, MCHC 32.7, RDW 13.0, Plt Count 218, MPV 10.2, Neut # (Auto) 5.7, Lymph # (Auto) 1.0 L, [place] # (Auto) 0.7, Eos # (Auto) 0.3, Baso # (Auto) 0.1, Absolute Nucleated RBC 0.00, Nucleated RBC % 0.0, Sodium 140, Potassium 4.6 H, Chloride 107, Carbon Dioxide 28, Anion Gap 5.0 L, BUN 17, Creatinine 1.0, Estimated GFR (MDRD) 53 L, Glucose 149 H, Calcium 9.6, Total Bilirubin 0.3, AST 37, ALT 16, Alkaline Phosphatase 71, Total Protein 6.0 L, Albumin 3.7, Globulin 2.3, Albumin/Globulin Ratio 1.6 Lab results reviewed: Yes 07/16/24 15:20 07/16/24 15:20 Meds/Allgy Home Medications Ambulatory Orders Medication Instructions Recorded Confirmed cyclobenzaprine 5 mg tablet 5 mg PO TID PRN 03/27/24 07/14/24 metoprolol succinate 25 mg 25 mg PO .bedtime 03/27/24 07/14/24 tablet,extended release 24 hr rosuvastatin 10 mg tablet 10 mg PO QDAY 03/27/24 07/14/24 tizanidine 2 mg tablet 2 mg PO BID 03/27/24 07/14/24 paroxetine HCl 40 mg tablet 40 mg PO QDAY #90 tabs 04/13/24 07/14/24 zolpidem 10 mg tablet 10 mg PO .night #90 tabs 07/08/24 07/14/24 Allergies Allergies Allergy/AdvReac Type Severity Reaction Status Date / Time adhesive tape Allergy Unknown Verified 07/16/24 13:47 ciprofloxacin (From Cipro) Allergy Unknown Verified 07/16/24 13:47 Penicillins AdvReac Anaphylaxis Verified 07/16/24 13:47 PFSH Active Problems All Active Problems (Updated 07/16/24 @ 18:09 by Varun Kearns MD) Fracture of left hip (Acute) Urge incontinence (Acute) Insomnia (Acute) Depression (Acute) Lumbar degenerative disc disease (Acute) Hyperglycemia (Acute) Breast cancer (Acute) Chronic renal insufficiency (Acute) Hypertension, essential, benign (Acute) Hypercalcemia (Acute) Subdural hemorrhage following injury (Acute) Ureteral stone (Acute) Social History Social History Smoking Status: Never smoker Relationship: Level: Independent Do you feel safe in your home environment?: Yes Suffered physical, verbal, emotional, or financial abuse?: No History of Abuse: No ETOH Use: None POLST Patient has POLST: No POLST Status: DNR Anesthesia Exam (Expanded) Exam General: Alert, Oriented x3 and Cooperative Dental: WNL Mouth Openin Fingerbreadth Neck Mobility: Normal Mallampati classification: III Thyromental Distance: 4-6 cm Respiratory: Lungs clear, Normal breath sounds, No respiratory distress and Decreased breath sounds Cardiovascular: Regular rate (NSR EKG this AM) Neurological: Normal speech Mental/Cognitive Status: Alert/Oriented X3 and Normal for patient Cognitive Status: Within normal limits Plan Problem List (1) Fracture of left hip: Plan: Due to ground level fall on hard surface. Patient had a CT scan which showed a markedly comminuted intratrochanteric fracture of the left hip. Will consult with orthopedic surgery for surgical repair of the fracture and provide analgesia as needed. NPO ordered after midnight. Pain control with Tylenol, [place], morphine for pain. RCRI of 0 - patient states she was "developing" heart failure but has not had a formal diagnosis of such. No active chest pain or shortness of breath at this time. METS > 4, able to walk up a few flights of stairs. CAD risk factors include hypertension and obesity. EKG ordered, pending. Qualifiers: Encounter type: initial encounter Fracture type: closed Qualified Code(s): S72.002A - Fracture of unspecified part of neck of left femur, initial encounter for closed fracture (2) Hypertension, essential, benign: Plan: Chronic problem. Patient takes metoprolol at home for this. Her BP in the emergency department was normal. We will continue patient's home regimen at this time. (3) Chronic renal insufficiency: Plan: Creatinine stable around baseline of 1.0. Continue to trend. Qualifiers: Chronic kidney disease stage: stage 2 (GFR 60-89) Qualified Code(s): N 18.2 - Chronic kidney disease, stage 2 (mild) (4) Depression: Plan: Patient is on paroxetine at home. We will continue patient's home medication regimen. Qualifiers: Depression Type: unspecified Qualified Code(s): F32.A - Depression, unspecified Plan Anesthesia Type: General and Fascia Iliaca Block (possible) Consent for Procedure(s) Verified and Reviewed: Yes Code Status: Attempt Resuscitation ASA Classification ASA classification: 3-Severe systemic disease Is this case an emergency?: No
[2024-07-17] MEDS ORDERED: BUPIVACAINE 0.25% PF 30 ML VIAL ONE (07:13)
[2024-07-17] MEDS ORDERED: fentaNYL 100 MCG/2 ML VIAL ONE ×2 (07:15→09:39)
[2024-07-17] MEDS ORDERED: MIDAZOLAM 2 MG/2 ML VIAL ONE (07:15)
[2024-07-17] MEDS ORDERED: LIDOCAINE-PF 2% 10 ML AMP SUBQ ONE (07:16)
[2024-07-17] MEDS ORDERED: PROPOFOL 200 MG/20 ML VIAL IVP ONE (07:16)
[2024-07-17] MEDS ORDERED: TRANEXAMIC ACID IN NACL 1,000 MG/100 ML BAG IV PRN (07:33)
[2024-07-17] MEDS ORDERED: ceFAZolin 1 GM VIAL ONE (08:09)
[2024-07-17] MEDS ORDERED: TRANEXAMIC ACID 1,000 MG/10 ML VIAL ONE ×2 (08:09→10:07)
[2024-07-17] MEDS ORDERED: DEXAMETHASONE 4 MG/ML VIAL ONE (08:10)
[2024-07-17] MEDS ORDERED: ONDANSETRON 4 MG/2 ML VIAL ONE (08:10)
[2024-07-17] MEDS ORDERED: ePHEDrine 50 MG/ML VIAL IVP ONE (08:17)
[2024-07-17] MEDS ORDERED: HYDROmorphone 0.5 MG/0.5 ML SYRINGE IVP PRN (08:22)
[2024-07-17] MEDS ORDERED: MORPHINE 2 MG/ML CARPUJECT IVP PRN (08:22)
[2024-07-17] MEDS ORDERED: ATROPINE ABBOJECT 1 MG/10 ML SYRINGE IVP PRN (08:22)
[2024-07-17] MEDS ORDERED: METOCLOPRAMIDE 10 MG/2 ML VIAL IVP PRN (08:22)
[2024-07-17] MEDS ORDERED: ONDANSETRON 4 MG/2 ML VIAL IVP PRN (08:22)
[2024-07-17] MEDS ORDERED: fentaNYL 100 MCG/2 ML VIAL IVP PRN (08:22)
[2024-07-17] MEDS ORDERED: ePHEDrine 50 MG/ML VIAL IVP PRN (08:22)
[2024-07-17] MEDS ORDERED: NALOXONE 0.4 MG/ML VIAL IVP PRN (08:22)
[2024-07-17] MEDS ORDERED: PHENYLEPHRINE HCL 0.5 MG/5 ML AMPULE ONE ×2 (08:28→09:13)
--- NOTE | 2024-07-17 08:49 | PROVIDER PROGRESS NOTE ---
Subjective Subjective Subjective: Patient is doing much better after surgery. She states her pain is well- controlled with the as needed medications. She is eating and drinking well. She is passing gas this afternoon. She worked with physical therapy, and understands that she needs retirement facility on discharge. Will consult with social work tomorrow to choice her. Current Medications Current Medications Current Medications: Current Medications Generic Name Dose Route Start Last Admin Trade Name Freq PRN Reason Stop Dose Admin Acetaminophen 1,000 mg 07/17/24 14:00 Acetaminophen 500 Mg Tablet PO TID MARY Atorvastatin Calcium 20 mg 07/16/24 21:00 07/16/24 21:33 Atorvastatin 10 Mg Tablet PO 20 mg QPM MARY Administration Atropine Sulfate 0.5 mg 07/17/24 08:22 Atropine Abboject 1 Mg/10 Ml Syringe IVP 07/18/24 08:22 Q5M PRN Bradycardia Docusate Sodium 100 mg 07/17/24 09:00 Docusate Sodium 100 Mg Capsule PO BID MARY Ephedrine Sulfate 10 mg 07/17/24 08:22 Ephedrine 50 Mg/Ml Vial IVP 07/18/24 08:22 Q5M PRN HYPOTENSION Fentanyl 25 - 50 mcg 07/17/24 08:22 Fentanyl 100 Mcg/2 Ml Vial IVP 07/18/24 08:22 Q5M PRN BREAKTHROUGH PAIN (2nd Choice) Hydromorphone HCl 0.2 - 0.6 mg 07/17/24 08:22 Hydromorphone 0.5 Mg/0.5 Ml Syringe IVP 07/18/24 08:22 Q5M PRN PAIN (First Choice) Potassium Chloride/Sodium Chloride 1,000 mls @ 75 mls/hr 07/17/24 07:00 Normal Saline 0.9% W/20 Meq Kcl IV .[id number] MARY Cefazolin Sodium 2 gm/ Sodium 100 mls @ 200 mls/hr 07/17/24 15:00 Chloride IV 07/17/24 23:29 Q8H MARY Tranexamic Acid 1,000 mg in 100 mls @ 600 mls/hr 07/17/24 07:33 Tranexamic 1,000 Mg/100ml-Nacl IV PRN PRN PER PHYSICIAN ORDERS Lactated Ringer's 1,000 mls @ 100 mls/hr 07/17/24 09:00 Lr IV 07/17/24 18:59 .Q10H MARY Metoclopramide HCl 10 mg 07/17/24 08:22 Metoclopramide 10 Mg/2 Ml Vial IVP Q6HR PRN N/V not relieved by Zofran Metoprolol Succinate 25 mg 07/16/24 21:00 07/16/24 21:33 Metoprolol Succinate 25 Mg Tablet PO 25 mg QPM MARY Administration Morphine Sulfate 2 mg 07/16/24 18:25 07/16/24 23:52 Morphine 2 Mg/Ml Carpuject IVP 2 mg Q4HR PRN Administration Pain 8 to 10 Morphine Sulfate 2 - 4 mg 07/17/24 08:22 Morphine 2 Mg/Ml Carpuject IVP 07/18/24 08:22 Q5M PRN PAIN (3rd Choice) Naloxone HCl 0.1 mg 07/17/24 08:22 Naloxone 0.4 Mg/Ml Vial IVP 07/18/24 08:22 Q2M PRN RESP RATE <8 Ondansetron HCl 4 mg 07/17/24 08:22 Ondansetron 4 Mg/2 Ml Vial IVP 07/18/24 08:22 ONCE PRN N/V (First Choice) Oxycodone HCl 5 mg 07/17/24 06:56 Oxycodone 5 Mg Tablet PO Q6HR PRN Severe Breakthrough pain(8-10) Paroxetine HCl 40 mg 07/17/24 09:00 Paroxetine 10 Mg Tablet PO DAILY MARY Sodium Chloride 10 ml 07/16/24 18:25 Sodium Chloride Flush 0.9% 10 Ml Syringe IVP PRN PRN NEEDED PER PROVIDER ORDERS Sodium Chloride 10 ml 07/17/24 01:00 07/17/24 00:43 Sodium Chloride Flush 0.9% 10 Ml Syringe IVP 10 ml 0100,0900,1700 MARY Administration Zolpidem Tartrate 10 mg 07/16/24 21:00 07/16/24 21:33 Zolpidem 5 Mg Tablet PO 10 mg QPM MARY Administration Objective Vital Signs/Intake & Output Reviewed Vital Signs: Yes Vital Signs: Vital Signs x48h Temp Pulse Resp BP Pulse Ox 07/17/24 07:29 97.9 F 73 18 100/57 L 95 07/17/24 06:45 94 Intake & Output: Intake & Output 02/2507/15/24 07/16/24 07/17/24 23:59 23:59 23:59 23:59 Intake Total 100 / 100 Output Total 50 / 50 50 / 50 Balance 50 / 50 -50 / -50 Weight (kg) 75 kg Objective General Appearance: positive No acute distress and Alert; negative Anxious Eyes Bilateral: positive Normal inspection, PERRL and EOMI ENT: positive ENT inspection nml, Pharynx nml and No signs of dehydration Neck: positive Nml inspection, Thyroid nml, No JVD and Trachea midline Respiratory: positive Chest non-tender, No respiratory distress and Breath sounds nml; negative Wheezes, Rales or Rhonchi Cardiovascular: positive Regular rate & rhythm, No murmur and No gallop Abdomen: positive Non-tender and No distention; negative Tenderness, Guarding, Rebound, Hepatomegaly, Splenomegaly or Mass Back: positive Nml inspection; negative CVA tenderness (R) or CVA tenderness (L) Skin: positive Color nml, No rash, Warm and Dry Extremities: positive Non-tender and Nml appearance; negative Full ROM (Left leg movement limited due to pain and recent surgery) Neurologic/Psychiatric: positive Oriented x3 and Mood/affect nml Lab Results 07/16/24 15:20 07/16/24 15:20 Other Labs: Lab Results x24hrs 07/17/24 07/16/24 Range/Units 07:23 15:20 WBC 7.7 (4.8-10.8) x10^3/uL RBC 3.88 L (4.20-5.40) 10^6/uL Hgb 12.6 (12.0-16.0) g/dL Hct 38.5 (37.0-47.0) % MCV 99.2 H (81.0-99.0) fL MCH 32.5 H (27.0-31.0) pg MCHC 32.7 (32.0-36.0) g/dL RDW 13.0 (12.0-15.0) % Plt Count 218 (130-450) 10^3/uL MPV 10.2 (7.9-10.8) fL Neut # (Auto) 5.7 (1.5-6.6) 10^3/uL Lymph # (Auto) 1.0 L (1.5-3.5) 10^3/uL [place] # (Auto) 0.7 (0.0-1.0) 10^3/uL Eos # (Auto) 0.3 (0.0-0.7) 10^3/uL Baso # (Auto) 0.1 (0.0-0.1) 10^3/uL Absolute Nucleated RBC 0.00 x10^3/uL Nucleated RBC % 0.0 /100WBC Sodium 140 (135-145) mmol/L Potassium 4.6 H (3.5-4.5) mmol/L Chloride 107 (101-111) mmol/L Carbon Dioxide 28 (21-32) mmol/L Anion Gap 5.0 L (6-13) BUN 17 (6-20) mg/dL Creatinine 1.0 (0.6-1.3) mg/dL Estimated GFR (MDRD) 53 L (>89) Glucose 149 H (74-104) mg/dL POC Whole Bld Glucose 114 (70-100) mg/dL Calcium 9.6 (8.5-10.3) mg/dL Total Bilirubin 0.3 (0.2-1.0) mg/dL AST 37 (10-42) IU/L ALT 16 (10-60) IU/L Alkaline Phosphatase 71 (42-121) IU/L Total Protein 6.0 L (6.4-8.9) g/dL Albumin 3.7 (3.2-5.5) g/dL Globulin 2.3 (2.1-4.2) g/dL Albumin/Globulin Ratio 1.6 (1.0-2.2) Diagnostic Imaging Diagnostic Imaging Results: positive Final report reviewed Assessment/Plan Problem List (1) Fracture of left hip: Impression: CT showed markedly comminuted intratrochanteric fracture of the left hip. Left hip pinning done in OR 07/[address] Acuna, orthopedic surgery. PT/OT evaluated patient, recommend SNF at this time. Continue two doses of cefazolin, per orthopedic surgery. Continue aspirin 81mg BID for DVT prophylaxis. Continue pain control including morphine as needed, oxycodone as needed. Continue scheduled Tylenol 1000 mg 3 times daily. Qualifiers: Encounter type: initial encounter Fracture type: closed Qualified Code(s): S72.002A - Fracture of unspecified part of neck of left femur, initial encounter for closed fracture (2) Hypertension, essential, benign: Impression: Continue metoprolol. (3) Chronic renal insufficiency: Impression: Creatinine stable and at baseline. Qualifiers: Chronic kidney disease stage: stage 2 (GFR 60-89) Qualified Code(s): N 18.2 - Chronic kidney disease, stage 2 (mild) (4) Depression: Impression: Continue paroxetine. Qualifiers: Depression Type: unspecified Qualified Code(s): F32.A - Depression, unspecified
[2024-07-17] MEDS ORDERED: CELECOXIB 100 MG CAPSULE PO SCH (09:00)
[2024-07-17] MEDS ORDERED: ACETAMINOPHEN 1,000 MG/100 ML 1,000 MG/100 ML BAG IV ONE (09:37)
--- NOTE | 2024-07-17 11:00 | ANESTHESIA POST OP EVALUATION ---
Anesthesia Post Eval Post Anesthesia Eval Vitals: Last Vital Signs Temp 36.3 C L 07/17/24 10:55 Pulse 77 07/17/24 10:55 Resp 18 07/17/24 10:55 BP 109/84 07/17/24 10:55 Pulse Ox 92 07/17/24 10:55 CV Function Including HR & BP: Stable Pain Control: Satisfactory Nausea & Vomiting: Negative Mental Status: Baseline Respiratory Status: Airway Patent Hydration Status: Satisfactory Anesthesia Complications: None
[2024-07-17] MEDS: DOCUSATE SODIUM 100 MG CAPSULE PO SCH (11:12)
--- NOTE | 2024-07-17 11:34 | ANESTHESIA POST OP EVALUATION ---
Anesthesia Post Eval Post Anesthesia Eval Vitals: Last Vital Signs Temp 36.1 C L 07/17/24 11:20 Pulse 78 07/17/24 11:20 Resp 15 07/17/24 11:20 BP 116/71 07/17/24 11:20 Pulse Ox 95 07/17/24 11:20 CV Function Including HR & BP: Stable Pain Control: Satisfactory Nausea & Vomiting: Negative Mental Status: Baseline Respiratory Status: Airway Patent Hydration Status: Satisfactory Anesthesia Complications: None
[2024-07-17] MEDS: ceFAZolin (2G) 2 GM in SODIUM CHLORIDE 0.9% MINIBAG 100 ML IV ONE (12:23)
[2024-07-17] MEDS: NS W/20 MEQ KCL 1,000 ML IV SCH (12:43)
[2024-07-17] MEDS: ACETAMINOPHEN 500 MG TABLET PO SCH (14:39)
[2024-07-17] MEDS: PARoxetine 10 MG TABLET PO SCH (14:40)
--- NOTE | 2024-07-17 14:53 | PHARMACY PROGRESS NOTE ---
Best Possible Medication History Admit Date and Time: 07/16/24 1709 Home Medications Medication Instructions Recorded Confirmed Type cyclobenzaprine 5 mg tablet 5 mg PO TID PRN muscle spasm 03/27/24 07/17/24 History metoprolol succinate 25 mg 25 mg PO .bedtime 03/27/24 07/17/24 History tablet,extended release 24 hr rosuvastatin 10 mg tablet 10 mg PO QDAY 03/27/24 07/17/24 History tizanidine 2 mg tablet 2 mg PO BID 03/27/24 07/17/24 History paroxetine HCl 40 mg tablet 40 mg PO QDAY #90 tabs 04/13/24 07/17/24 Rx zolpidem 10 mg tablet 10 mg PO .night #90 tabs 07/08/24 07/17/24 Rx Processed by: Pharmacy Medications reviewed in ED?: No Medication History completed: Yes Patient Interview: Pt unable to participate Secondary Source(s): Other family member, Physician records, Pharmacy records and Insurance records [facility] Statement: As the person ultimately responsible for medication therapy, providers are able to order a medication from an existing home medication list in [facility] via the "Reconcile Routine" prior to Confirmation of that medication by systems support specialist. Such practice is discouraged except when the physician, in their clinical judgment, deems that a medical need exists for a medication without regard to previous use.
[2024-07-17] MEDS: ceFAZolin (2G) 2 GM in SODIUM CHLORIDE 0.9% MINIBAG 100 ML IV SCH (15:42)
[2024-07-17] MEDS: LACTATED RINGERS 1,000 ML IV SCH (17:22)
--- NOTE | 2024-07-17 17:23 | XRAY Report ---
PROCEDURE: FL OR C-Arm Procedure INDICATIONS: hip nailing FLUORO TIME: 001.8 TECHNIQUE: 4 intraoperative fluoroscopic images of left hip were obtained. COMPARISON: CT of left lower extremity dated 07/16/2024. FINDINGS: Intraoperative fluoroscopic images shows ORIF of left proximal femur with compression screws and intr amedullary neal placement. Left hip alignment is anatomic. IMPRESSION: Fluoroscopy guidance was provided intraoperatively for the ORIF of left proximal femur were performed by ordering physician. Reviewed by: Enrique Diana MD on 07/17/2024 5:21 PM PST Approved by: Enrique Diana MD on 07/17/2024 5:21 PM PST Station ID: [id number]
[2024-07-17] MEDS ORDERED: ONDANSETRON ODT 4 MG TABLET TL PRN (18:07)
[2024-07-17] MEDS: SIMETHICONE CHEW 80 MG TABLET PO PRN (19:20)
[2024-07-17] MEDS: ONDANSETRON 4 MG/2 ML VIAL IVP PRN (19:20)
--- NOTE | 2024-07-17 21:40 | OPERATIVE REPORT ---
Operative Report General Admit Date: 07/16/24 Procedure Data: Operation Date: 07/17/24 07:30 Proposed Procedures p Hip Nailing(Left) - Edmund Banda MD Actual Procedures p LEFT Hip Nailing(Left) - Edmund Banda MD Pre-Op Diagnosis: LEFT HIP FRACTURE Anesthesia Type General Case Staff Anesthesia Provider: Quinn Quinones Assisting Provider: Gabbi Lopez Rep: BERTHA CLAYTON SCHROEDER/NEPHEW. Case Times Into Recovery: 07/17/24 10:39 Procedure Start: 07/17/24 08:47 Procedure End: 07/17/24 10:35 Time out: 07/17/24 08:41 Implants INTERTAN 11.5X18 125 DEG TRIGEN LAG SCRW 90/95MM TRIGEN L-P SCREW 5MMX32.5MM Pre-Op Diagnosis: LEFT hip fracture Post Op Diagnosis: DAV Procedure Note Estimated Blood Loss (ml): 50 Other Other Information/Narrative: Op Note Date of Procedure: 07/17/24 Pre-Op Diagnosis: LEFT Intertrochanteric Hip Fracture Post-Op Diagnosis: LEFT Intertrochanteric Hip Fracture Procedure Open Reduction and Internal fixation of the LEFT Intertrochanteric Hip Fracture Surgeon: Edmund Banda MD Log Rafter in OR: KATHRYN Myles Physician Log Rafter was used throughout the entirety of the case. They assisted with room set up, patient positioning, draping, retraction, reduction, fixation and closure. They were essential for the success of the case. Anesthesia Type: General EBL: 50cc Specimens Removed: None Complications: None Implants/Grafts: S&N Intertan Nail Drains: No lines, drains, or airways are recorded for this episode. Findings: Narrative: The patient was taken to the OR and administered anesthetic and preoperative antibiotics. They were placed on the fracture table with the operative leg in traction boot. SCD device placed on the nonoperative leg and it was placed in 90 hip and knee flexion on the support. Using traction and appropriate rotation, the hip was reduced to near anatomic position on fluoroscopic views. Standard prep and drape was done. Percutaneous approach to the hip was used. Incision was made in line with and 5cm proximal to the greater trochanter. The incision was carried down through skin and subcutaneous fat to the fascia. Hemostasis achieved. The guide wire was then inserted at the tip of the greater trochanter and down into the proximal femoral shaft ensuring not to enter through the fracture site. The opening reamer was then used to ream over the guidewire down to the level of the lesser trochanter, taking care to remove bone centrally and not distract the fracture. The guidewire was removed. The ball tipped guide wire was placed. Nail was placed down to the appropriate level and was checked in AP and lateral fluoro. Through a separate incision the aiming device for the compression screws was inserted down to the lateral cortex of the femur. A guidewire was then drilled into the femoral head subchondral bone traveling centrally through the neck. It was measured and over reamed at the appropriate length. The screw and compression screw was placed. The placement was confirmed on AP and Lateral views. There another separate small incision and distal locking screw was then drilled and inserted. AP and lateral fluoroscopic views confirmed satisfactory reduction and implant position. The wounds were irrigated. Fascia amador closed with #0 Vicryl followed by skin with 2-0 Vicryl and poncho in all incisions. Sterile dressings placed. Patient transferred to recovery room bed. Patient transferred to recovery room in stable condition. Plan: Weight bearing as tolerated. Follow-up in 2 weeks for wound check and staple removal. DVT prophylaxis with 6 weeks of aspirin (this was discussed with the medicine team). Physical therapy. Edmund Banda MD
[2024-07-17] MEDS: ASPIRIN EC 81 MG TABLET PO SCH (22:00)
[2024-07-18] MEDS: LORazepam 2 MG/ML VIAL IVP SCH (01:44)
[2024-07-18] MEDS: oxyCODONE 5 MG TABLET PO PRN (03:14)
[2024-07-18 06:40] LABS: CALCIUM 7.9 mg/dL (8.5-10.3); HCT - HEMATOCRIT 24.5 % (37.0-47.0); HGB - HEMOGLOBIN 7.8 g/dL (12.0-16.0); MAGNESIUM 1.9 mg/dL (1.7-2.3); MEAN CORPUSCULAR HGB CONC 31.8 g/dL (32.0-36.0); MEAN CORPUSCULAR VOLUME 100.4 fL (81.0-99.0); MEAN PLATELET VOLUME 10.2 fL (7.9-10.8); POTASSIUM 4.4 mmol/L (3.5-4.5); RED BLOOD COUNT 2.44 10^6/uL (4.20-5.40); RED CELL DISTRIBUTION WIDTH 12.8 % (12.0-15.0); WHITE BLOOD COUNT 10.2 x10^3/uL (4.8-10.8)
--- NOTE | 2024-07-18 10:21 | PROVIDER PROGRESS NOTE ---
Subjective Subjective Subjective: Patient is doing okay this morning. She states that she feels little fuzzy. She is having some intermittent confusion. She denies any nausea, vomiting. She does not recall if she had a bowel movement. She does not recall seeing any blood in her bowel movements recently. She denies any fevers or chills. Surgical site looks intact. Current Medications Current Medications Current Medications: Current Medications Generic Name Dose Route Start Last Admin Trade Name Freq PRN Reason Stop Dose Admin Acetaminophen 1,000 mg 07/17/24 14:00 07/18/24 06:58 Acetaminophen 500 Mg Tablet PO 1,000 mg TID MARY Administration Aspirin 81 mg 07/17/24 21:00 07/17/24 22:00 Aspirin Ec 81 Mg Tablet PO 81 mg BID MARY Administration Atorvastatin Calcium 20 mg 07/16/24 21:00 07/17/24 22:00 Atorvastatin 10 Mg Tablet PO 20 mg QPM MARY Administration Docusate Sodium 100 mg 07/17/24 09:00 07/17/24 21:59 Docusate Sodium 100 Mg Capsule PO 100 mg BID MARY Administration Potassium Chloride/Sodium Chloride 1,000 mls @ 75 mls/hr 07/17/24 07:00 07/18/24 00:57 Normal Saline 0.9% W/20 Meq Kcl IV 75 mls/hr .[id number] MARY Administration Metoprolol Succinate 25 mg 07/16/24 21:00 07/17/24 22:00 Metoprolol Succinate 25 Mg Tablet PO 25 mg QPM MARY Administration Morphine Sulfate 2 mg 07/16/24 18:25 07/16/24 23:52 Morphine 2 Mg/Ml Carpuject IVP 2 mg Q4HR PRN Administration Pain 8 to 10 Ondansetron HCl 4 mg 07/17/24 18:07 07/17/24 19:20 Ondansetron 4 Mg/2 Ml Vial IVP 4 mg Q4HR PRN Administration Nausea / Vomiting Ondansetron HCl 4 mg 07/17/24 18:07 Ondansetron Odt 4 Mg Tablet TL Q4HR PRN Nausea / Vomiting Oxycodone HCl 5 mg 07/17/24 06:56 07/18/24 03:14 Oxycodone 5 Mg Tablet PO 5 mg Q6HR PRN Administration Severe Breakthrough pain(8-10) Paroxetine HCl 40 mg 07/17/24 09:00 07/17/24 14:40 Paroxetine 10 Mg Tablet PO 40 mg DAILY MARY Administration Simethicone 80 mg 07/17/24 18:07 07/17/24 19:20 Simethicone Chew 80 Mg Tablet PO 80 mg 0900,1300,1800,2100 PRN Administration Abdominal Pain Sodium Chloride 10 ml 07/16/24 18:25 Sodium Chloride Flush 0.9% 10 Ml Syringe IVP PRN PRN NEEDED PER PROVIDER ORDERS Sodium Chloride 10 ml 07/17/24 01:00 07/18/24 00:57 Sodium Chloride Flush 0.9% 10 Ml Syringe IVP 10 ml 0100,0900,1700 MARY Administration Zolpidem Tartrate 10 mg 07/16/24 21:00 07/17/24 22:01 Zolpidem 5 Mg Tablet PO 10 mg QPM MARY Administration Objective Vital Signs/Intake & Output Reviewed Vital Signs: Yes Vital Signs: Vital Signs x48h Temp Pulse Resp BP Pulse Ox 07/18/24 07:03 97.9 F 78 20 101/55 L 93 Intake & Output: Intake & Output 07/15/24 07/16/24 07/17/24 07/18/24 23:59 23:59 23:59 23:59 Intake Total 100 / 100 2917 / 2917 655 / 655 Output Total 50 / 50 250 / 250 450 / 450 Balance 50 / 50 2667 / 2667 205 / 205 Weight (kg) 75 kg Objective General Appearance: positive No acute distress and Alert; negative Anxious Eyes Bilateral: positive Normal inspection, PERRL and EOMI ENT: positive ENT inspection nml, Pharynx nml and No signs of dehydration Neck: positive Nml inspection, Thyroid nml, No JVD and Trachea midline Respiratory: positive Chest non-tender, No respiratory distress and Breath sounds nml; negative Wheezes, Rales or Rhonchi Cardiovascular: positive Regular rate & rhythm, No murmur and No gallop Abdomen: positive Non-tender and No distention; negative Tenderness, Guarding, Rebound, Hepatomegaly, Splenomegaly or Mass Back: positive Nml inspection; negative CVA tenderness (R) or CVA tenderness (L) Skin: positive Color nml, No rash, Warm and Dry Extremities: positive Non-tender and Nml appearance; negative Full ROM (Left leg movement limited due to pain and recent surgery) Neurologic/Psychiatric: positive Oriented x3 and Mood/affect nml Lab Results 07/18/24 05:43 07/18/24 05:43 Other Labs: Lab Results x24hrs 07/18/24 Range/Units 05:43 WBC 10.2 (4.8-10.8) x10^3/uL RBC 2.44 L (4.20-5.40) 10^6/uL Hgb 7.8 L (12.0-16.0) g/dL Hct 24.5 L (37.0-47.0) % MCV 100.4 H (81.0-99.0) fL MCH 32.0 H (27.0-31.0) pg MCHC 31.8 L (32.0-36.0) g/dL RDW 12.8 (12.0-15.0) % Plt Count 148 (130-450) 10^3/uL MPV 10.2 (7.9-10.8) fL Sodium 137 (135-145) mmol/L Potassium 4.4 (3.5-4.5) mmol/L Chloride 109 (101-111) mmol/L Carbon Dioxide 25 (21-32) mmol/L Anion Gap 3.0 L (6-13) BUN 20 (6-20) mg/dL Creatinine 1.0 (0.6-1.3) mg/dL Estimated GFR (MDRD) 53 L (>89) Glucose 123 H (74-104) mg/dL Calcium 7.9 L (8.5-10.3) mg/dL Magnesium 1.9 (1.7-2.3) mg/dL Diagnostic Imaging Diagnostic Imaging Results: positive Final report reviewed Assessment/Plan Problem List (1) Fracture of left hip: Impression: CT showed markedly comminuted intratrochanteric fracture of the left hip. Left hip pinning done in OR 07/[address] Acuna, orthopedic surgery. PT/OT evaluated patient, recommend SNF at this time. Continue two doses of cefazolin, per orthopedic surgery. Continue aspirin 81mg BID for DVT prophylaxis. Continue pain control including morphine as needed, oxycodone as needed. Continue scheduled Tylenol 1000 mg 3 times daily. Qualifiers: Encounter type: initial encounter Fracture type: closed Qualified Code(s): S72.002A - Fracture of unspecified part of neck of left femur, initial encounter for closed fracture (2) Anemia: Impression: Hemoglobin dropped from 12.6 on admission to 7.8 this morning. No bloody bowel movements, no leg bruising noted, surgical site intact. Repeat pending for the afternoon. Minimal blood loss in the OR, estimated loss about 50 cc. Continue aspirin twice daily at this time. Will start patient on Protonix for GI prophylaxis with six weeks of BID aspirin. Qualifiers: Anemia type: unspecified type Qualified Code(s): D64.9 - Anemia, unspecified (3) Hypertension, essential, benign: Impression: Continue metoprolol. (4) Chronic renal insufficiency: Impression: Creatinine stable and at baseline. Qualifiers: Chronic kidney disease stage: stage 2 (GFR 60-89) Qualified Code(s): N 18.2 - Chronic kidney disease, stage 2 (mild) (5) Depression: Impression: Continue paroxetine. Qualifiers: Depression Type: unspecified Qualified Code(s): F32.A - Depression, unspecified
--- NOTE | 2024-07-18 11:08 | POST OP PROGRESS NOTE ---
Subjective General Admit Date: 07/16/24 Procedure Date: 07/17/24 Post Op Days: 1 Procedure Performed: ORIF Left hip with IM Nail Other Other Information/Narrative: Patient is sitting upright in bed eating breakfast She denies chest pain, dyspnea, nausea and emesis today. No dizziness. She is companied by her son Prasanth. She was not able to get out of bed with physical therapy yesterday Her pain is well-controlled ABX Reporting Has patient been on IV antibiotics over the past 48 hours?: Yes Ortho Surgical Progress Note Problem List Problem List: 83-year-old female with a past medical history of hypertension and chronic renal insufficiency is postoperative day 1 from a left open reduction internal fixation of the left hip by Dr. Banda at [facility]. She is recovering well with adequate pain control and is awaiting further evaluation and management by physical therapy. PLAN: - DVT prophylaxis with 81 mg of aspirin twice daily for 6 weeks, SCDs in hospital. Aspirin use was discussed with medicine given history of subdural hemorrhage. - Physical and occupational therapy evaluation today and assessment for discharge likely to a [facility] facility - Pain control with scheduled tylenol and oxycodone as needed - Weight bearing as tolerated with front wheeled walker at all times - Follow up with orthopedic clinic in 2 weeks - Tegaderm dressing to remain in place unless saturated. Skin poncho to be removed at orthopedic follow up. - Bowel regimen in hospital - Normal diet, IV fluids to be discontinued when tolerating oral diet without nausea and emesis - Appreciate expertise of internal medicine care in co-managed care of this patient - Repeat H&H this afternoon. Hemoglobin 7.8 today. Review of Systems Status of ROS: See HPI Exam Exam well developed, well nourished, 83 year old female, no acute distress Neurovascular intact to left lower extremity Dressing is dry and intact without drainage or hematoma formation
[2024-07-18] MEDS: PANTOPRAZOLE 40 MG TABLET PO SCH (13:56)
[2024-07-18 15:05] LABS: HCT - HEMATOCRIT 23.7 % (37.0-47.0); HGB - HEMOGLOBIN 7.6 g/dL (12.0-16.0)
--- NOTE | 2024-07-18 19:22 | XRAY Report ---
PROCEDURE: XR Hip w/Pelvis 2-3V LT INDICATIONS: post operative imaging TECHNIQUE: 2 views of the hip were acquired. COMPARISON: 07/16/2024 FINDINGS/IMPRESSION: Intramedullary neal and screw fixation of the left femur. Persistent displaced lesser trochanter. Join t alignment is within normal limits. Reviewed by: Oj Macedo MD on 07/18/2024 7:20 PM PST Approved by: Oj Macedo MD on 07/18/2024 7:20 PM PST Station ID: [id number]
[2024-07-18 20:04] LABS: HCT - HEMATOCRIT 24.9 % (37.0-47.0); HGB - HEMOGLOBIN 8.1 g/dL (12.0-16.0)
[2024-07-19 04:59] LABS: HCT - HEMATOCRIT 23.8 % (37.0-47.0); HGB - HEMOGLOBIN 7.5 g/dL (12.0-16.0); MEAN CORPUSCULAR HEMOGLOBIN 32.1 pg (27.0-31.0); MEAN CORPUSCULAR HGB CONC 31.5 g/dL (32.0-36.0); MEAN CORPUSCULAR VOLUME 101.7 fL (81.0-99.0); MEAN PLATELET VOLUME 9.7 fL (7.9-10.8); RED BLOOD COUNT 2.34 10^6/uL (4.20-5.40); RED CELL DISTRIBUTION WIDTH 13.3 % (12.0-15.0)
[2024-07-19 05:13] LABS: CALCIUM 8.2 mg/dL (8.5-10.3); CREATININE 1.1 mg/dL (0.6-1.3); MAGNESIUM 1.9 mg/dL (1.7-2.3); POTASSIUM 4.7 mmol/L (3.5-4.5)
[2024-07-19] MEDS: polyethylene glycoL 3350 17 GM PACKET PO SCH (08:50)
--- NOTE | 2024-07-19 10:38 | CT Report ---
PROCEDURE: CT Abdomen/Pelvis WO INDICATIONS: rule out retroperitoneal bleed TECHNIQUE: A CT scan of the abdomen and pelvis was performed without the use of intravenous contrast. Images we re recorded and evaluated at appropriate window settings. Reformats: coronal and sagittal. For radiat ion dose reduction, the following was used: automated exposure control, adjustment of mA and/or kV ac cording to patient size. COMPARISON: None. FINDINGS: Image quality: Diagnostic. Lower chest: Moderate hiatal hernia Liver: No contour-deforming mass. Gallbladder: Biliary tree: No intrahepatic or extrahepatic dilation, accounting for age. Spleen: No splenomegaly. Pancreas: No pancreatic ductal dilation. Adrenals: No adrenal nodule. Kidneys and ureters: Right renal staghorn calculus with ureteral stent in place. No hydronephrosis bi laterally. Stomach, bowel and peritoneum: No gastric or small bowel dilation. No abnormal wall thickening. No pa thologic free fluid. Multiple diverticula arise from the sigmoid colon without evidence of diverticul itis. Lymph nodes: No central or retroperitoneal adenopathy. Vessels: Atherosclerotic vascular calcification without aortic aneurysm Reproductive organs: Unremarkable. Bladder: Bladder wall thickness is normal, accounting for underdistention. No calcified bladder stone s. Pelvic lymph nodes: No adenopathy by size criteria. Bones: No aggressive osseous abnormality. Other: Bilateral inguinal hernias containing fat without bowel involvement IMPRESSION: No evidence of retroperitoneal hematoma Right renal staghorn calculus with ureteral stent in place. No hydronephrosis bilaterally. Reviewed by: Prasanth Fournier MD on 07/19/2024 9:37 AM [facility] Approved by: Prasanth Fournier MD on 07/19/2024 9:37 AM [facility] Station ID: [id number]
--- NOTE | 2024-07-19 12:30 | PROVIDER PROGRESS NOTE ---
Subjective Subjective Subjective: Benita feels better today. She had a good sleep. She is eager to work with physical therapy and Occupational Therapy today. She has not had any bowel movements. She denies any bruising. Her leg pain feels well-controlled. Current Medications Current Medications Current Medications: Current Medications Generic Name Dose Route Start Last Admin Trade Name Freq PRN Reason Stop Dose Admin Acetaminophen 1,000 mg 07/17/24 14:00 07/19/24 06:26 Acetaminophen 500 Mg Tablet PO 1,000 mg TID MARY Administration Aspirin 81 mg 07/17/24 21:00 07/19/24 08:50 Aspirin Ec 81 Mg Tablet PO 81 mg BID MARY Administration Atorvastatin Calcium 20 mg 07/16/24 21:00 07/18/24 21:29 Atorvastatin 10 Mg Tablet PO 20 mg QPM MARY Administration Docusate Sodium 100 mg 07/17/24 09:00 07/19/24 08:50 Docusate Sodium 100 Mg Capsule PO 100 mg BID MARY Administration Morphine Sulfate 2 mg 07/16/24 18:25 07/16/24 23:52 Morphine 2 Mg/Ml Carpuject IVP 2 mg Q4HR PRN Administration Pain 8 to 10 Ondansetron HCl 4 mg 07/17/24 18:07 07/17/24 19:20 Ondansetron 4 Mg/2 Ml Vial IVP 4 mg Q4HR PRN Administration Nausea / Vomiting Ondansetron HCl 4 mg 07/17/24 18:07 Ondansetron Odt 4 Mg Tablet TL Q4HR PRN Nausea / Vomiting Oxycodone HCl 5 mg 07/17/24 06:56 07/18/24 03:14 Oxycodone 5 Mg Tablet PO 5 mg Q6HR PRN Administration Severe Breakthrough pain(8-10) Pantoprazole Sodium 40 mg 07/18/24 12:00 07/19/24 06:26 Pantoprazole 40 Mg Tablet PO 40 mg QDAC MARY Administration Paroxetine HCl 40 mg 07/17/24 09:00 07/19/24 08:50 Paroxetine 10 Mg Tablet PO 40 mg DAILY MARY Administration Polyethylene Glycol 17 gm 07/19/24 09:00 07/19/24 08:50 Polyethylene Glycol 3350 17 Gm Packet PO 17 gm DAILY MARY Administration Simethicone 80 mg 07/17/24 18:07 07/17/24 19:20 Simethicone Chew 80 Mg Tablet PO 80 mg 0900,1300,1800,2100 PRN Administration Abdominal Pain Sodium Chloride 10 ml 07/16/24 18:25 Sodium Chloride Flush 0.9% 10 Ml Syringe IVP PRN PRN NEEDED PER PROVIDER ORDERS Sodium Chloride 10 ml 07/17/24 01:00 07/19/24 08:51 Sodium Chloride Flush 0.9% 10 Ml Syringe IVP 10 ml 0100,0900,1700 MARY Administration Zolpidem Tartrate 10 mg 07/16/24 21:00 07/18/24 21:28 Zolpidem 5 Mg Tablet PO 10 mg QPM MARY Administration Objective Vital Signs/Intake & Output Reviewed Vital Signs: Yes Vital Signs: Vital Signs x48h Temp Pulse Pulse Resp BP BP Pulse Ox 07/19/24 11:49 97.9 F 92 16 100/54 L 97 07/19/24 07:00 98.1 F 86 20 120/70 96 Intake & Output: Intake & Output 07/16/24 07/17/24 07/18/24 07/19/24 23:59 23:59 23:59 23:59 Intake Total 100 / 100 2917 / 2917 1935 / 1935 300 / 300 Output Total 50 / 50 250 / 250 700 / 700 450 / 450 Balance 50 / 50 2667 / 2667 1235 / 1235 -150 / -150 Weight (kg) 75 kg Objective General Appearance: positive No acute distress and Alert; negative Anxious Eyes Bilateral: positive Normal inspection, PERRL and EOMI ENT: positive ENT inspection nml, Pharynx nml and No signs of dehydration Neck: positive Nml inspection, Thyroid nml, No JVD and Trachea midline Respiratory: positive Chest non-tender, No respiratory distress and Breath sounds nml; negative Wheezes, Rales or Rhonchi Cardiovascular: positive Regular rate & rhythm, No murmur and No gallop Abdomen: positive Non-tender and No distention; negative Tenderness, Guarding, Rebound, Hepatomegaly, Splenomegaly or Mass Back: positive Nml inspection; negative CVA tenderness (R) or CVA tenderness (L) Skin: positive Color nml, No rash, Warm and Dry Extremities: positive Non-tender and Nml appearance; negative Full ROM (Left leg movement limited due to pain and recent surgery) Neurologic/Psychiatric: positive Oriented x3 and Mood/affect nml Lab Results 07/19/24 04:45 07/19/24 04:45 Other Labs: Lab Results x24hrs 07/19/24 07/18/24 07/18/24 Range/Units 04:45 19:51 14:56 WBC 8.0 (4.8-10.8) x10^3/uL RBC 2.34 L (4.20-5.40) 10^6/uL Hgb 7.5 L 8.1 L 7.6 L (12.0-16.0) g/dL Hct 23.8 L 24.9 L 23.7 L (37.0-47.0) % MCV 101.7 H (81.0-99.0) fL MCH 32.1 H (27.0-31.0) pg MCHC 31.5 L (32.0-36.0) g/dL RDW 13.3 (12.0-15.0) % Plt Count 140 (130-450) 10^3/uL MPV 9.7 (7.9-10.8) fL Sodium 141 (135-145) mmol/L Potassium 4.7 H (3.5-4.5) mmol/L Chloride 112 H (101-111) mmol/L Carbon Dioxide 24 (21-32) mmol/L Anion Gap 5.0 L (6-13) BUN 21 H (6-20) mg/dL Creatinine 1.1 (0.6-1.3) mg/dL Estimated GFR (MDRD) 48 L (>89) Glucose 103 (74-104) mg/dL Calcium 8.2 L (8.5-10.3) mg/dL Magnesium 1.9 (1.7-2.3) mg/dL Diagnostic Imaging Diagnostic Imaging Results: positive Final report reviewed Assessment/Plan Problem List (1) Fracture of left hip: Impression: CT showed markedly comminuted intratrochanteric fracture of the left hip. Left hip pinning done in OR 07/[address] Villanueva, orthopedic surgery. PT/OT evaluated patient, recommend SNF at this time. Continue two doses of cefazolin, per orthopedic surgery. Continue aspirin 81mg BID for DVT prophylaxis. Continue pain control including morphine as needed, oxycodone as needed. Continue scheduled Tylenol 1000 mg 3 times daily. Qualifiers: Encounter type: initial encounter Fracture type: closed Qualified Code(s): S72.002A - Fracture of unspecified part of neck of left femur, initial encounter for closed fracture (2) Anemia: Impression: Hemoglobin dropped from 12.6 on admission to 7-8 this morning. No bloody bowel movements, no leg bruising noted, surgical site intact. Minimal blood loss in the OR, estimated loss about 50 cc. Continue aspirin twice daily at this time. Will start patient on Protonix for GI prophylaxis with six weeks of BID aspirin. CT abdomen/pelvis done without contrast to rule out retroperitoneal bleed with such a large hemoglobin drop. This has been negative. Likely due to dilutional anemia with the addition of some acute blood loss anemia in the OR. Continue to monitor. FOBT ordered once patient has a bowel movement. Qualifiers: Anemia type: unspecified type Qualified Code(s): D64.9 - Anemia, unspecified (3) Hypertension, essential, benign: Impression: Metoprolol held as patient has been borderline soft with her blood pressures. (4) Chronic renal insufficiency: Impression: Creatinine stable and at baseline. Qualifiers: Chronic kidney disease stage: stage 2 (GFR 60-89) Qualified Code(s): N 18.2 - Chronic kidney disease, stage 2 (mild) (5) Depression: Impression: Continue paroxetine. Qualifiers: Depression Type: unspecified Qualified Code(s): F32.A - Depression, unspecified
--- NOTE | 2024-07-19 14:06 | POST OP PROGRESS NOTE ---
Subjective General Admit Date: 07/16/24 Procedure Date: 07/17/24 Post Op Days: 2 Procedure Performed: ORIF Left hip with IM Nail Other Other Information/Narrative: General Admit Date: 07/16/24 Procedure Date: 07/17/24 Post Op Days: 2 Procedure Performed: ORIF Left hip with IM Nail Other Other Information/Narrative: Patient is sitting upright in bed She denies chest pain, dyspnea, nausea and emesis today. No dizziness. Her pain is well-controlled Ortho Surgical Progress Note Problem List Problem List: 83-year-old female with a past medical history of hypertension and chronic renal insufficiency is postoperative day 2 from a left open reduction internal fixation of the left hip at [facility]. She is recovering well with adequate pain control and is awaiting further evaluation and management by physical therapy. H/H was low yesterday but improved in the afternoon. This morning it continues to remain low. Pt remains asymptomatic. Dressings are clean. Continue to watch with daily labs. PLAN: - DVT prophylaxis with 81 mg of aspirin twice daily for 6 weeks, SCDs in hospital. Aspirin use was discussed with medicine given history of subdural hemorrhage. - Physical and occupational therapy evaluation today and assessment for discharge likely to a fdc facility - Pain control with scheduled tylenol and oxycodone as needed - Weight bearing as tolerated with front wheeled walker at all times - Follow up with orthopedic clinic in 2 weeks - Tegaderm dressing to remain in place unless saturated. Skin poncho to be removed at orthopedic follow up. - Bowel regimen in hospital - Normal diet, IV fluids to be discontinued when tolerating oral diet without nausea and emesis - Appreciate expertise of internal medicine care in co-managed care of this patient - Repeat H&H in AM Edmund Banda MD Exam Exam Exam well developed, well nourished, 83 year old female, no acute distress Neurovascular intact to left lower extremity Dressing is dry and intact without drainage or hematoma formation
--- NOTE | 2024-07-19 14:31 | PT Plan of Care ---
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 Please see chart for complete medical hx. The pt was received resting comfortably supine in bed and she presented today with limited ROM, decreased tissue extensibility, and LE weakness as expected for this phase of her post-op recovery. Her overall tolerance throughout this assessment was limited by weakness, fatigue, and L LE pain. At this time recommend continued skilled PT in tervention while in the acute setting and DC to SNF for further rehab once pt medically stable. This plan was discussed with the pt and she was in agreement with this. At the end of the session the pt was sitting up in a chair with call light in reach, chair alarm in place and on, and all needs met. RN and PSYCHOLOGIST ENGINEERING updated on pt's status and DC rec. PATIENT/FAMILY GOALS Patient/Family Goals: To be strong enough to go back home GOALS Improve supine to sit to:: Independent Improve sit to stand to:: Modified Independent Improve pivot transfer ability to:: Modified Independent Improve sit to supine to:: Independent Improve gait ability to:: Ind Advance Assistive Device to:: Front Wheeled Walker Increase distance walked to (in feet):: 25 PLAN Frequency: 1-2x/day Duration: Until discharge DISCHARGE RECOMMENDATIONS Discharge Location: [facility] Facility Support/Services Needed: With assist Other Discharge Equipment: pt owns all recommended DME Transport Needs at Discharge: Wheelchair van
[2024-07-19 15:58] LABS: HCT - HEMATOCRIT 25.6 % (37.0-47.0)
[2024-07-19 16:16] LABS: % IRON SATURATION 12 % (20-50); IRON 29 ug/dL (50-212); TOTAL IRON BINDING CAPACITY 249 ug/dL (250-450); TRANSFERRIN 178 mg/dL (203-362)
[2024-07-20 05:30] LABS: HCT - HEMATOCRIT 23.1 % (37.0-47.0); HGB - HEMOGLOBIN 7.5 g/dL (12.0-16.0); MEAN CORPUSCULAR HEMOGLOBIN 32.5 pg (27.0-31.0); MEAN CORPUSCULAR HGB CONC 32.5 g/dL (32.0-36.0); MEAN PLATELET VOLUME 9.6 fL (7.9-10.8); RED BLOOD COUNT 2.31 10^6/uL (4.20-5.40); RED CELL DISTRIBUTION WIDTH 13.3 % (12.0-15.0); WHITE BLOOD COUNT 6.7 x10^3/uL (4.8-10.8)
[2024-07-20 05:56] LABS: CALCIUM 8.8 mg/dL (8.5-10.3); CREATININE 0.9 mg/dL (0.6-1.3); POTASSIUM 4.3 mmol/L (3.5-4.5)
--- NOTE | 2024-07-20 07:57 | POST OP PROGRESS NOTE ---
Subjective General Admit Date: 07/16/24 Procedure Date: 07/17/24 Post Op Days: 3 Procedure Performed: ORIF Left hip with IM Nail Other Other Information/Narrative: General Admit Date: 07/16/24 Procedure Date: 07/17/24 Post Op Days: 3 Procedure Performed: ORIF Left hip with IM Nail Other Other Information/Narrative: Patient is sitting upright in bed She denies chest pain, dyspnea, nausea and emesis today. No dizziness. Her pain is well-controlled. Reports that she has more pain in the knee than the hip. No new trauma. well developed, well nourished, 83 year old female, no acute distress Neurovascular intact to left lower extremity Dressing is dry and intact without drainage or hematoma formation Ortho Surgical Progress Note Problem List Problem List: 83-year-old female with a past medical history of hypertension and chronic renal insufficiency is postoperative day 2 from a left open reduction internal fixation of the left hip at [facility]. She is recovering well with adequate pain control. PT recommends SNF. H/H has been stable. PLAN: - DVT prophylaxis with 81 mg of aspirin twice daily for 6 weeks, SCDs in hospital. Aspirin use was discussed with medicine given history of subdural hemorrhage. - Physical and occupational therapy evaluation and assessment for discharge to a custodial facility - Pain control with scheduled tylenol and oxycodone as needed - Weight bearing as tolerated with front wheeled walker at all times - Follow up with orthopedic clinic in 2 weeks - Tegaderm dressing to remain in place unless saturated. Skin poncho to be removed at orthopedic follow up. - Bowel regimen in hospital - Normal diet, IV fluids to be discontinued when tolerating oral diet without nausea and emesis - Appreciate expertise of internal medicine care in co-managed care of this patient Edmund Banda MD Exam Exam Exam well developed, well nourished, 83 year old female, no acute distress Neurovascular intact to left lower extremity Dressing is dry and intact without drainage or hematoma formation
[2024-07-20] MEDS: METOPROLOL SUCCINATE 25 MG TABLET PO SCH (09:12)
[2024-07-20] MEDS: CHOLECALCIFEROL 25 MCG TABLET PO SCH (09:22)
[2024-07-20] MEDS: CALCIUM CARBONATE CHEW 500 MG TABLET PO SCH (09:22)
--- NOTE | 2024-07-20 09:32 | Discharge Summary ---
"Discharge Summary Admit Date: 07/16/24 Discharge Date: 07/20/24 Discharging Provider: Dr. Varun Kearns Primary Care Provider: Martha Call Code Status: Attempt Resuscitation Discharge Facility Name: [facility] DIAGNOSES Admission Diagnoses: Fracture of left hip Hypertension Chronic renal insufficiency Depression Discharge Diagnoses with Status of Each Condition: Fracture of left hipleft hip pinning done in OR 07/[address] Banda. Patient requires 6 weeks of aspirin 81 mg twice daily for DVT prophylaxis. PT/OT recommend SNF at this time. Continue pain control. Left knee swellingx-ray shows no acute fracture. Soft tissue swelling is noted, likely from the fall. Continue to monitor. Anemiahemoglobin dropped from 12.6 on admission to 7.5 this morning. No active bleeding noted. CT abdomen/pelvis ruled out retroperitoneal bleed. Continue Protonix daily. Would like H&H rechecked in 1 week to assess. Iron studies show iron deficiency. Continue oral supplementation. Hypertensioncontinue metoprolol. Chronic renal insufficiencycreatinine remains at baseline. Depressioncontinue paroxetine. HPI History of Present Illness: Per PA student Radha Lloyd: Patient is a 83 year old female with a history of CHF, chronic renal insufficiency, hypertension, and subdural hemorrhage presents to the ED today following a ground level fall in the hospital parking lot. Patient was here at the hospital for a CT scan and was walking back to her car when she tripped and fell, landing on her left hip. Patient denies feeling dizzy or lightheaded prior to her fall. She also denies any chest pain, heart palpitations, shortness of breath or difficulty breathing. Patient was lying supine in bed with her left leg shortened and externally rotated. She stated she was in significant pain and requested medication for that. She was alert and oriented and seemed to be a good historian. She was not on oxygen and her respiratory effort was normal. Patient did admit to regularly experiencing dyspnea if she walks too far. She states she can walk around the grocery store or a [employer] if she has a shopping cart to hold on to. She is unable to exercise any more than that. Her kidney function is declining, patient said she does not want dialysis when it gets to that point. She lives alone in her own home, her last month. Patient has a daughter who lives in [place] and a son in [place]. She has a third son who lives [place]. She normally manages her ADLs without difficulty. She walks unassisted without a cane or a walker. When asked about advanced care planning, patient stated she wished to be DNR. She is ok with short term intubation if her prognosis is good. Her PCP is KATHRYN Call in [place]. CONSULTS | PROCEDURES Consultations: Orthopedic surgery, physical therapy, Occupational Therapy Procedures: Head CT, femur x-ray, cervical spine CT, lower extremity CT, C-arm fluoroscopy, left hip pinning, hip x-ray, abdominal/pelvis CT, knee x-ray HOSPITAL COURSE Hospital Course: Patient is a 83-year-old female with a history of chronic renal insufficiency, hypertension, previous spontaneous subdural hemorrhage which has now resolved who presented after a ground-level fall in the parking lot. She was found to have a markedly comminuted, displaced intertrochanteric fracture of the left hip. She was taken in for left hip pinning on 07/17. She tolerated the procedure well. After the procedure, she had a drop in her hemoglobin from 12-7.5. No active bleeding is noted. Likely procedural as well as dilutional with some of the fluids she received. Iron studies does show iron deficiency anemia, will supplement with oral iron supplementation every other day for 30 days. Advised to follow-up on her hemoglobin in 1 week to reassess. PT/OT worked with the patient, and recommend SNF on discharge. ALLERGIES Allergies Allergy/AdvReac Type Severity Reaction Status Date / Time adhesive tape Allergy Unknown Verified 07/16/24 13:47 ciprofloxacin (From Cipro) Allergy Unknown Verified 07/16/24 13:47 Penicillins AdvReac Anaphylaxis Verified 07/16/24 13:47 MEDICATIONS Ambulatory Orders Medication Instructions Recorded Confirmed cyclobenzaprine 5 mg tablet 5 mg PO TID PRN muscle spasm 03/27/24 07/17/24 metoprolol succinate 25 mg 25 mg PO .bedtime 03/27/24 07/17/24 tablet,extended release 24 hr rosuvastatin 10 mg tablet 10 mg PO QDAY 03/27/24 07/17/24 tizanidine 2 mg tablet 2 mg PO BID 03/27/24 07/17/24 paroxetine HCl 40 mg tablet 40 mg PO QDAY #90 tabs 04/13/24 07/17/24 zolpidem 10 mg tablet 10 mg PO .night #90 tabs 07/08/24 07/17/24 aspirin 81 mg tablet,delayed 81 mg PO BID 40 days #80 tabs 07/20/24 release ferrous sulfate 325 mg (65 mg 325 mg PO Q OTHER DAY #30 tabs 07/20/24 iron) tablet oxycodone 5 mg tablet 5 mg PO Q6HR PRN Severe 07/20/24 Breakthrough pain(8-10) #14 tabs pantoprazole 40 mg tablet,delayed 40 mg PO QDAC 40 days #40 tabs 07/20/24 release PHYSICAL EXAM AT DISCHARGE General Appearance: positive No acute distress and Alert; negative Anxious Eyes Bilateral: positive Normal inspection, PERRL and EOMI ENT: positive ENT inspection nml, Pharynx nml and No signs of dehydration Neck: positive Nml inspection, Thyroid nml and No JVD Respiratory: positive Chest non-tender, No respiratory distress and Breath sounds nml; negative Wheezes, Rales or Rhonchi Cardiovascular: positive Regular rate & rhythm, No murmur and No gallop; negative Systolic murmur, Diastolic murmur, Gallop/S3, Gallop/S4 or Friction rub Peripheral Pulses: positive 2+ Abdomen: positive Non-tender; negative Guarding, Rebound, Hepatomegaly, Splenomegaly or Mass Back: positive Nml inspection; negative CVA tenderness (R) or CVA tenderness (L) Skin: positive Color nml, No rash, Warm and Dry Extremities: positive Non-tender, Full ROM, Nml appearance and No pedal edema Neurologic/Psychiatric: positive Oriented x3 and Mood/affect nml LABS 07/20/24 05:02 07/20/24 05:02 DIAGNOSTIC IMAGING Diagnostic Imaging Results: Final report reviewed FOLLOW UP Follow Up: Follow-up with primary care provider. Follow-up with orthopedic surgery. TIME SPENT Time Spent in Discharge (Minutes): 35 Discharge Plan Discharge Patient Disposition: [facility] DC/Xfer Prescriptions: New aspirin 81 mg Tablet,Delayed Release (Dr/Ec) 81 mg PO BID 40 Days Qty: 80 0RF oxycodone 5 mg Tablet 5 mg PO Q6HR PRN (Reason: Severe Breakthrough pain(8-10)) Qty: 14 0RF pantoprazole 40 mg Tablet,Delayed Release (Dr/Ec) 40 mg PO QDAC 40 Days Qty: 40 0RF ferrous sulfate 325 mg (65 mg iron) tablet 325 mg PO Q OTHER DAY Qty: 30 0RF Rx Instructions: please take every other day. can cause constipation. continue bowel regimen. Continued zolpidem 10 mg tablet 10 mg PO .night Qty: 90 3RF Rx Instructions: for sleep paroxetine HCl 40 mg tablet 40 mg PO QDAY Qty: 90 3RF Rx Instructions: for anxiety metoprolol succinate 25 mg tablet extended release 24 hr 25 mg PO .bedtime tizanidine 2 mg tablet 2 mg PO BID rosuvastatin 10 mg tablet 10 mg PO QDAY cyclobenzaprine 5 mg tablet 5 mg PO TID PRN (Reason: muscle spasm) Activity Restrictions: Activity as Tolerated Diet: Regular Health Concerns: You came in because you fell. You broke your hip. You had surgery done on 07/17 to help with this. You have been doing well since surgery. Your blood levels did drop a little bit afterwards. It appears you may have an iron deficiency. I am sending you home on an iron supplement to take every other day. This sometimes can cause constipation so please be diligent about your bowel regimen with MiraLAX and senna. I would also like you to get your blood work rechecked in a week to make sure your levels are stable. If you notice any dark stools, any bleeding in your stools, please return to the emergency room. Because of this recent surgery, and the fact that you will not be moving around as much afterwards, we will start you on a baby aspirin that you will take twice a day to help prevent blood clots. Please follow up with Dr. Villanueva in 2 weeks. You are going to be going to rehab to help get stronger before you go home. We are glad you are feeling better, thank you for allowing us to take care of you. Print Language: Cameroonian Patient Instructions: Surgery Anesthesia After, Fx Hip Common Questions Stand Alone Forms: SNF Discharge, PCP List Follow-up Care: Edmund Banda MD [Provider Admit Priv/Credential] - 2 Weeks Martha Call PA-C [Primary Care Provider] -"
--- NOTE | 2024-07-20 10:53 | XRAY Report ---
PROCEDURE: XR Knee 3V LT INDICATIONS: pain/swelling TECHNIQUE: 3 views of the knee(s) were acquired. COMPARISON: None. FINDINGS: Bones: No fractures or dislocations. Degenerative arthritis with severe medial compartment joint spa ce loss. No suspicious bony lesions. Soft tissues: No knee joint effusion. No suspicious soft tissue calcifications or masses. Diffuse s oft tissue edema. 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 Soft tissue edema. Reviewed by: Pablito Leary MD on 07/20/2024 10:51 AM [facility] Approved by: Pablito Leary MD on 07/20/2024 10:51 AM PST Station ID: [id number]
[2024-07-20 11:38] VITALS: BP 127/81; TEMP 98.1; O2SAT 97
== END 2024-07-20 11:50 | DRG 481 ==
LOC: ED 13:41 → MS2 17:09
PROVIDERS: ADMIT Internal Medicine; ATTEND Internal Medicine
PROC: HIPNAIL (2024-07-17 07:30)
DX: Z66 Do not resuscitate; S06.5XAA Traumatic subdural hemorrhage with loss of consciousness status unknown, initial encounter; S72.142A Displaced intertrochanteric fracture of left femur, initial encounter for closed fracture; N18.2 Chronic kidney disease, stage 2 (mild); I13.0 Hypertensive heart and chronic kidney disease with heart failure and stage 1 through stage 4 chronic kidney disease, or unspecified chronic kidney disease; W01.0XXA Fall on same level from slipping, tripping and stumbling without subsequent striking against object, initial encounter; Y92.481 Parking lot as the place of occurrence of the external cause; I50.9 Heart failure, unspecified; F32.A Depression, unspecified; S80.212A Abrasion, left knee, initial encounter; D50.9 Iron deficiency anemia, unspecified

== ENCOUNTER 2025-01-07 18:14 | Inpatient (IN) ==
--- OUTSIDE RECORDS SUMMARY | 2025-01-07 18:34 | EXTERNAL MEDICAL SUMMARY RPT | Continuity of Care Document ---
Author Organization [facility] Address [address] [place] [id number] Phone Problems date description facility 2024-10-13 08:34 Fracture of unspecif ied part of neck of left femur, [facility] encounter [facility] 2024-10-14 09:14 Disorientation, unspecified i [facility] 2024-10-14 15:08 Fracture of unspecif ied part of neck of left femur, initial encounter for closed fracture [facility] 2024-10-15 20:20 Altered mental status, unspecif ied [facility] 2024-10-16 11:11 Calculus of kidney [facility] 2024-10-16 11:11 Calculus of ureter [facility]Daily [facility] 2024-10-16 11:11 Urinary tract infection, site n ot specified [facility] 2024-10-16 11:15 Calculus of kidney idbey [facility] 2024-10-16 11:15 Calculus of ureter [facility] 2024-10-16 11:15 Urinary tract infection, site n ot specified [facility] 2024-10-16 11:16 Calculus of kidney idbey [facility] 2024-10-16 11:16 Calculus of ureter idbey [facility] 2024-10-16 11:16 Urinary tract infection, site n ot specified [facility] 2024-10-21 12:58 Chronic kidney disease, stage 2 (mild) [facility] 2024-10-21 12:58 Calculus of ureter [facility] 2024-10-21 12:58 Urinary tract infection, site n ot specified [facility] 2024-10-21 12:58 Edema, unspecified [facility] 2024-10-21 12:58 Fracture of unspecif ied part of neck of left femur, initial encounter for closed fracture [facility] 2024-10-21 18:10 Anemia, unspecified [facility] [place] 2024-10-21 18:10 Depression, [facility] 2024-10-21 18:10 Anxiety disorder, unspecified [facility] 2024-10-21 18:10 Essential (primary) hypertensio n [facility] 2024-10-21 18:10 Pain in left hip [facility] 2024-10-21 18:10 Chronic kidney disease, stage 2 (mild) [facility] 2024-10-21 18:10 Calculus of ureter [facility] 2024-10-21 18:10 Urinary tract infection, site n ot specified [facility] 2024-10-21 18:10 Altered mental status, unspecif ied [facility] 2024-10-21 18:10 Edema, unspecified [facility] 2024-10-21 18:10 Fracture of unspecif ied part of neck of left femur, initial encounter for closed fracture [facility] 2024-10-21 18:10 Displaced intertroch anteric fracture of left femur, initial encounter for closed fracture [facility] 2024-10-21 18:10 Unspecified injury of left hip, initial encounter [facility] 2024-11-10 14:26 Urinary tract infection, site n ot specified [facility] 2024-11-10 14:29 Urinary tract infection, site n ot specified [facility] 2024-11-10 14:31 Anemia, unspecified [facility] 2024-11-10 14:31 Depression, unspecified [facility] 2024-11-10 14:31 Anxiety disorder, unspecified [facility] 2024-11-10 14:31 Essential (primary) hypertensio n [facility] 2024-11-10 14:31 Pain in left hip [facility] 2024-11-10 14:31 Chronic kidney disease, stage 2 (mild) [facility] 2024-11-10 14:31 Urinary tract infection, site n ot specified [facility] 2024-11-10 14:31 Altered mental status, unspecif ied [facility] 2024-11-10 14:31 Fracture of unspecif ied part of neck of left femur, initial encounter for closed fracture [facility] 2024-11-10 14:31 Displaced intertroch anteric fracture of left femur, initial encounter for closed fracture abeo [facility] 2024-11-10 14:31 Unspecified injury of left hip, [facility] 2024-11-10 14:32 Anemia, unspecified [facility] 2024-11-10 14:32 Depression, unspecified abeo [facility] 2024-11-10 14:32 Anxiety disorder, unspecified [employer] 2024-11-10 14:32 Essential (primary) hypertensio n [facility] 2024-11-10 14:32 Pain in left hip [facility] 2024-11-10 14:32 Chronic kidney disease, stage 2 (mild) [facility] 2024-11-10 14:32 Calculus of ureter [facility] 2024-11-10 14:32 Urinary tract infection, site n ot specified [facility] 2024-11-10 14:32 Altered mental status, unspecif ied [facility] 2024-11-10 14:32 Fracture of unspecif ied part of neck of left femur, initial encounter for closed fracture [facility] 2024-11-10 14:32 Displaced intertroch anteric fracture of left femur, initial encounter for closed fracture [facility] 2024-11-10 14:32 Unspecified injury of left hip, [facility] 2024-11-10 14:33 Depression, unspecified [facility] 2024-11-10 14:33 Essential (primary) hypertensio n [facility] 2024-11-10 14:33 Chronic kidney disease, stage 2 (mild) abeo [facility] 2024-11-10 14:33 Fracture of unspecif ied part of neck of left femur, initial encounter for closed fracture [facility] 2024-11-10 14:34 Anemia, unspecified [facility] 2024-11-10 14:34 Depression, unspecified [facility] 2024-11-10 14:34 Anxiety disorder, unspecified [facility] [employer] 2024-11-10 14:34 Essential (primary) hypertensio n [facility] 2024-11-10 14:34 Pain in left hip [facility] 2024-11-10 14:34 Chronic kidney disease, stage 2 (mild) [facility] 2024-11-10 14:34 Calculus of ureter [facility] 2024-11-10 14:34 Urinary tract infection, site n ot specified [facility] 2024-11-10 14:34 Altered mental status, unspecif ied [facility] 2024-11-10 14:34 Fracture of unspecif ied part of neck of left femur, initial encounter for closed fracture [facility] 2024-11-10 14:34 Displaced intertroch anteric fracture of left femur, initial encounter for closed fracture [facility] 2024-11-10 14:34 Unspecified injury of left hip, initial encounter [facility] 2024-11-10 14:35 Depression, unspecified [facility] 2024-11-10 14:35 Essential (primary) [facility]ensio [facility] 2024-11-10 14:35 Chronic kidney disease, stage 2 (mild) [facility] 2024-11-10 14:35 Fracture of unspecif ied part of neck of left femur, initial encounter for closed fracture [facility] 2024-11-10 14:36 Calculus of ureter [facility] 2024-11-10 14:36 Urinary tract infection, site n ot specified [facility] 2024-11-11 00:04 Urinary tract infection, site n ot specified [facility] 2024-11-11 13:25 Urinary tract infection, site n ot specified [facility] 2024-11-11 14:13 Urinary tract infection, site n ot specified [facility] 2024-12-16 09:11 Anemia, unspecified idDaily Dealy [facility] 2024-12-16 09:11 Depression, unspecified [facility] 2024-12-16 09:11 Anxiety disorder, [facility] 2024-12-16 09:11 Essential (primary) hypertensio n [facility] 2024-12-16 09:11 Pain in left hip [facility] 2024-12-16 09:11 Chronic kidney disease, stage 2 (mild) [facility] 2024-12-16 09:11 Altered mental status, unspecif ied [facility] 2024-12-16 09:11 Fracture of unspecif ied part of neck of left femur, initial encounter for closed fracture [facility] 2024-12-16 09:11 Displaced intertroch anteric fracture of left femur, initial encounter for closed fracture [facility] 2024-12-16 09:11 Unspecified injury of left hip, initial encounter [facility] 2024-12-22 09:53 Noninfective gastroenteritis an d colitis, unspecified [facility] 2024-12-22 09:53 Pain in left knee [facility] 2024-12-22 09:53 Other intervertebral disc degeneration, lumbar region without mention of lumbar back pain or lower extremity pain [facility] 2024-12-22 09:53 Calculus of ureter [facility] 2024-12-22 09:53 Fracture of unspecif ied part of neck of left femur, initial encounter for closed fracture [facility] 2024-12-22 10:26 Other chronic pain [facility] 2024-12-22 10:26 Pain in left knee [facility] 2024-12-22 10:26 Other intervertebral disc degeneration, lumbar region without mention of lumbar back pain or lower extremity pain [facility] 2024-12-22 10:26 Low back pain, unspecified [facility] 2024-12-22 10:26 Fracture of unspecif ied part of neck of left femur, initial encounter for closed fracture [facility] 2024-12-22 10:28 Other chronic pain [facility] 2024-12-22 10:28 Pain in left knee [facility] 2024-12-22 10:28 Other intervertebral disc degeneration, lumbar region without mention of lumbar back pain or lower extremity pain [facility] 2024-12-22 10:28 Low back pain, unspecified [facility] 2024-12-22 10:28 Fracture of unspecif ied part of neck of left femur, initial encounter for closed fracture [facility] 2024-12-23 00:02 Other chronic pain id[facility] 2024-12-23 00:02 Pain in left knee [facility] 2024-12-23 00:02 Other intervertebral disc degeneration, lumbar region without mention of lumbar back pain or lower extremity pain idbey [facility] 2024-12-23 00:02 Low back pain, unspecified [facility] 2024-12-23 00:02 Fracture of unspecif ied part of neck of left femur, initial encounter for closed fracture [facility] 2024-12-23 09:02 Anemia, unspecified [facility] 2024-12-23 09:02 Depression, unspecified [facility] 2024-12-23 09:02 Anxiety disorder, unspecified [facility] 2024-12-23 09:02 Other chronic pain [facility] 2024-12-23 09:02 Essential (primary) hypertensio n [facility] 2024-12-23 09:02 Pain in left hip [facility] 2024-12-23 09:02 [facility] 09:02 Other intervertebral disc degeneration, lumbar region without mention of lumbar back pain or lower extremity pain [facility] 2024-12-23 09:02 Low back pain, unspecified [facility] 2024-12-23 09:02 Chronic kidney disease, stage 2 (mild) [facility] 2024-12-23 09:02 Altered mental status, unspecif ied [facility] 2024-12-23 09:02 Fracture of unspecif ied part of neck of left femur, initial encounter for closed fracture [facility] 2024-12-23 09:02 Displaced intertroch anteric fracture of left femur, initial encounter for closed fracture [facility] 2024-12-23 09:02 Unspecified injury of left hip, initial encounter [facility] 2024-12-24 14:47 [facility] 14:47 Low back pain, unspecified [facility] 2024-12-24 14:47 Fracture of unspecif ied part of neck of left femur, initial encounter for closed fracture [facility] 2024-12-31 14:03 Weakness [facility] 2025-01-01 09:46 [facility] 2025-01-02 14:11 Urinary tract infection, site n ot specified [facility] 2025-01-02 16:00 Urinary tract infection, site n ot specified [facility] 2025-01-04 11:52 Urinary tract infection, site n ot specified [facility] 2025-01-06 11:24 Hallucinations, unspecified i [facility] 2025-01-06 11:35 Encounter for observ ation for other suspected diseases and conditions ruled out [facility] Results/Labs test date facility value unit notes Result panel 1 MG NH4 PO4 (STRUVITE) 2024-10-05 09:44 [facility] 10 % (missing) STONE SIZE 2024-10-05 09:44 [facility] 12x5 mm Multiple pieces received. Dimensions of the largest piece reported. CARBONATE APATITE 2024-10-05 09:44 [facility] 20 % (missing) STONE WEIGHT 2024-10-05 09:44 [facility] 288 mg (missing) CALCIUM OXALATE MONOHYDRATE 2024-10-05 09:44 [facility] 70 % (missing) STONE ANALYSIS COMMENT 2024-10-05 09:44 [facility] Comment (missing ) Calculus received wet. Wet calculi must be dried before analysis, which delays reporting of results. Leaving calculi wet (such as water, saline, blood, urine) may lead to changes in composition. Performed at: [address] [id number] Sales And Marketing Representative: Jaden Doshi PhD, Phone: [phone] STONE SOURCE 2024-10-05 09:44 [facility] Comment (missing ) Urinary Bladder 2,8 DIHYDROXYADENINE 2024-10-05 09:44 [facility] TNP (missing ) (missing) AMMONIUM ACID URATE 2024-10-05 09:44 [facility] ([facility] ) (missing) BILIRUBIN 2024-10-05 09:44 [facility] TNP (missing ) (missing) CAHPO4 (BRUSHITE) 2024-10-05 09:44 [facility] TNP (missing ) (missing) CALCIUM BILIRUBINATE 2024-10-05 09:44 [facility] TNP (missing ) (missing) CALCIUM CARBONATE 2024-10-05 09:44 [facility] TNP (missing ) (missing) CALCIUM OXALATE DIHYDRATE 2024-10-05 09:44 [facility] TNP (missing ) (missing) CALCIUM PALMITATE 2024-10-05 09:44 [facility] TNP (missing ) (missing) CALCIUM PHOSPHATE 2024-10-05 09:44 [facility] TNP (missing ) (missing) CALCIUM STEARATE 2024-10-05 09:44 [facility] TNP (missing ) (missing) CHOLESTEROL 2024-10-05 09:44 [facility] TNP (missing ) (missing) CYSTINE 2024-10-05 09:44 [facility] TNP (missing ) (missing) DRUG OR METABOLITE 2024-10-05 09:44 [facility] TNP (missing ) (missing) HYDROXYAPATITE 2024-10-05 09:44 [facility] TNP (missing ) (missing) MGHPO4 (NEWBERYITE) 2024-10-05 09:44 [facility] TNP (missing ) (missing) OTHER COMPONENT(S) 2024-10-05 09:44 [facility] TNP (missing ) (missing) SODIUM ACID URATE 2024-10-05 09:44 [facility] TNP (missing ) (missing) STONE ANALYSIS COMMENT 2024-10-05 09:44 [facility] TNP (missing ) (missing) TRIAMTERENE 2024-10-05 09:44 [facility] TNP (missing ) (missing) URIC ACID DIHYDRATE 2024-10-05 09:44 [facility] TNP (missing ) (missing) URIC ACID 2024-10-05 09:44 [facility] TNP (missing ) (missing) XANTHINE 2024-10-05 09:44 [facility] TNP (missing ) (missing) STONE COLOR 2024-10-05 09:44 [facility] White (missing ) (missing) Result panel 2 CUL, URINE 2024-11-10 15:40 [facility] 5050,000-100,000 CFU/mL (missing) (missing) CUL, URINE 2024-11-10 15:40 [facility] BETA STREP B: Susceptibility testing is not generally (missing) (missing) CUL, URINE 2024-11-10 15:40 [facility] IDMICID/RADHA COM* (missing) (missing) CUL, URINE 2024-11-10 15:40 [facility] SENSNISENSITIVITIES NOT INDICATED FOR THIS ISOLATE (missing) (missing) O:STRGPB 2024-11-10 15:40 [facility] STRGPBBETA HEMOLYTIC STREP GROUP BBETA HEMOLYTIC STREP GROUP B (missing) (missing) CUL, URINE 2024-11-10 15:40 [facility] UCC.6COLONY COUNT (missing) (missing) CUL, URINE 2024-11-10 15:40 [facility] indicated due to this organism's predictable susceptibility (missing) (missing) CUL, URINE 2024-11-10 15:40 [facility] to ampicillin, penicillin, cephalosporins, levofloxacin and (missing) (missing) CUL, URINE 2024-11-10 15:40 [facility] vancomycin. (missing) (missing) Result panel 3 NUCLEATED RED BLOOD CELLS AUTO 2024-12-28:14 [facility] 0.0 /100wbc (missing) NRBC ABSOLUTE COUNT (AUTO) 2024-12-28 20:14 [facility] 0.00 x10 3/ul (missing) BASOPHILS # (AUTO) 2024-12-28 20:14 [facility] 0.1 10 3/ul (missing) EOSINOPHILS # (AUTO) 2024-12-28 20:14 [facility] 0.2 10 3/ul (missing) BILIRUBIN,TOTAL 2024-12-28:14 [facility] 0.6 mg /dl As of November 2022 testing method has changed, this may include reference ranges. LYMPHOCYTES # (AUTO) 2024-12-28 20:14 [facility] 0.8 10 3/ul (missing) MONOCYTES # (AUTO) 2024-12-28 20:14 [facility] 0.9 10 3/ul (missing) ALBUMIN/GLOBULIN RATIO 2024-12-28 20:14 [facility] 1.1 (missing) (missing) CREATININE 2024-12-28 20:14 [facility] 1.3 mg/dl As of November 2022 testing method has changed, this may include reference ranges. GLUCOSE 2024-12-28 20:14 [facility] 103 mg/dl As of November 2022 testing method has changed, this may include reference ranges. CHLORIDE 2024-12-28 20:14 [facility] 106 mmol/l As of November 2022 testing method has changed, this may include reference ranges. ALT ALANINE AMINOTRANSFERASE 2024-12-28 20:14 [facility] 11 iu/l As of November 2022 testing method has changed, this may include reference ranges. HGB - HEMOGLOBIN 2024-12-28 20:14 [facility] 11.5 g /dl (missing) LIPASE 2024-12-28 20:14 [facility] 12 u/l As of November 2022 testing method has changed, this may include reference ranges. SODIUM 2024-12-28 20:14 [facility] 137 mmol/l (missing) RED CELL DISTRIBUTION WIDTH 2024-12-28 20:14 [facility] 16.0 % (missing) BUN - BLOOD UREA NITROGEN 2024-12-28 20:14 [facility] 19 mg/dl As of Nov testing method has changed, this may include reference ranges. AST ASPARTATE AMINOTRANSFERASE 2024-12-28 20:14 [facility] 26 iu/l As of November 2022 testing method has changed, this may include reference ranges. CARBON DIOXIDE - CO2 2024-12-28 20:14 [facility] 26 mmol/l As of November 2022 testing method has changed, this may include reference ranges. PLT - PLATELET COUNT 2024-12-28 20:14 [facility] 261 10 3/ul (missing) MEAN CORPUSCULAR HEMOGLOBIN 2024-12-28 20:14 [facility] 28.5 pg (missing) GLOBULIN 2024-12-28 20:14 [facility] 3.5 g/dl (missing) ALBUMIN 2024-12-28 20:14 [facility] 3.7 g/dl As of November 2022 testing method has changed, this may include reference ranges. POTASSIUM 2024-12-28 20:14 [facility] 3.9 mmol/l As of November 2022 testing method has changed, this may include reference ranges. MEAN CORPUSCULAR HGB CONC 2024-12-28 20:[address] [facility] 31.4 g/dl (missing) HCT - HEMATOCRIT 2024-12-28 20:[address] [facility] 36.6 % (missing) GFR - MDRD 2024-12-28 20:14 [facility] 39 (in g) Social History date description facility
--- NOTE | 2025-01-07 18:59 | CT Report ---
PROCEDURE: CT Head WO INDICATIONS: head injury no loc, no bt TECHNIQUE: CT of the head was performed, without intravenous contrast. Reformats: Coronal and sagittal. For radiation dose reduction, the following was used: automated exposure control, adjustment of mA and/or kV according to patient size. COMPARISON: None. FINDINGS: Image quality: Suboptimal due to motion artifact. CSF spaces: Basal cisterns are patent. No extra-axial fluid collections. Ventricles are normal in size and shape. Brain: No midline shift. No intracranial mass effect or hemorrhage. Watson- white matter interface is normal. Age appropriate volume loss and periventricular white matter hypoattenuation, likely chronic ischemic change. Skull and face: Calvarium and visualized facial bones are intact, without suspicious lesions. Sinuses: Visualized sinuses and mastoids are clear. IMPRESSION: No acute intracranial pathology. Reviewed by: Oj Macedo MD on 01/07/2025 6:57 PM PDT Approved by: Oj Macedo MD on 01/07/2025 6:57 PM PDT Station ID: [id number]
--- NOTE | 2025-01-07 19:01 | CT Report ---
PROCEDURE: CT Lower Extremity RT WO INDICATIONS: hip to knee pain TECHNIQUE: Noncontrast 3-mm axial sections acquired from the distal tibial shaft to the talar dome, with coronal and sagittal reformats. For radiation dose reduction, the following was used: automated exposure control, adjustment of mA and/or kV according to patient size. COMPARISON: None. FINDINGS: Image quality: Excellent. Bones: Intertrochanteric fracture of the right femur. This is comminuted, with mild apex superior angulation. Soft tissues: Moderate hematoma along the lateral aspect of the fracture at the level of the greater tuberosity measuring 6.1 x 4.3 cm. Small right indirect inguinal hernia containing fat. Right-sided effortful stent present. Impression: Comminuted, intertrochanteric fracture of the right femur. Reviewed by: Oj Macedo MD on 01/07/2025 7:00 PM PDT Approved by: Oj Macedo MD on 01/07/2025 7:00 PM PDT Station ID: [id number]
--- NOTE | 2025-01-07 19:04 | CT Report ---
PROCEDURE: CT Cervical Spine WO INDICATIONS: neck pain after fall TECHNIQUE: Noncontrast images acquired from the skull base to the T4 level. Sagittal and coronal reformats were then constructed. For radiation dose reduction, the following was used: automated exposure control, adjustment of mA and/or kV according to patient size. COMPARISON: 07/16/2024 FINDINGS: Image quality: Excellent. Bones: No fractures or dislocations. Visualized superior ribs are intact. Mild to moderate, multilevel degenerative disc disease and diffuse facet arthrosis. Soft tissues: Prevertebral soft tissues are normal in thickness. No paravertebral hematomas. No apical pneumothoraces. IMPRESSION: No acute, displaced fracture or traumatic subluxation. Reviewed by: Oj Macedo MD on 01/07/2025 7:02 PM PDT Approved by: Oj Macedo MD on 01/07/2025 7:02 PM PDT Station ID: [id number]
[2025-01-07] MEDS: MORPHINE 2 MG/ML CARPUJECT IVP STA ×2 (19:23→20:33)
--- NOTE | 2025-01-07 19:37 | ED Physician Documentation ---
History of Present Illness Stated complaint Stated Complaint: GLF, RIGHT HIP/KNEE PAIN Chief complaint Chief Complaint: Trauma Ext History obtained from History obtained from: Patient History of Present Illness Timing: Prior to arrival Additonal information Additional information: Patient is a 84-year-old female presenting to the emergency department with hypertension and kidney stones lower leg edema and history of left hip fracture presents after a mechanical fall at home when she twisted around after opening the door too quickly landing on her right hip. She has significant pain to her right hip with some swelling unable to get up and ambulate after her fall she did hit her head but no loss of consciousness nausea vomiting and she is not on any blood thinners. Meds/Allgy Home Medications Ambulatory Orders Medication Instructions Recorded Confirmed cyclobenzaprine 5 mg tablet 5 mg PO TID PRN muscle spa sm 03/27/24 01/04/25 zolpidem 10 mg tablet 10 mg PO .night #90 tabs 01/04/25 furosemide 20 mg tablet 20 mg PO QAM PRN edema #90 t abs 10/21/24 01/04/25 metoprolol succinate 25 mg 25 mg PO HS #90 tabs 01/04/25 tablet,extended release 24 hr pantoprazole 40 mg tablet,delayed 40 mg PO QDAC #90 ta bs 10/21/24 01/04/25 release paroxetine HCl 40 mg tablet 40 mg PO QDAY #90 tabs 09/1101/04/25 rosuvastatin 10 mg tablet 10 mg PO QDAY #90 tabs 10/2101/04/25 hydrocodone 5 mg-acetaminophen 325 See Rx Instructions PO .COMPLEX 12/22/24 01/04/25 mg tablet PRN pain #30 tabs Allergies Allergies Allergy/AdvReac Type Severity Reaction Status Date / Time adhesive tape Allergy Unknown Verified 01/07/25 18:24 ciprofloxacin (From Cipro) Allergy Unknown Verified 01/07/25 18:24 Penicillins AdvReac Anaphylaxis Verified 01/07/25 18:24 [facility] Active Problems All Active Problems (Updated 01/07/25 @ 19:57 by Zeny Nix PA-C) Closed femur fracture (Acute) Hallucinations (Acute) UTI (urinary tract infection) (Acute) Generalized weakness (Acute) Knee pain, left (Acute) Chronic diarrhea (Acute) UTI (urinary tract infection) (Acute) Edema (Acute) Anemia (Acute) Fracture of left hip (Acute) Urge incontinence (Acute) Insomnia (Acute) Depression (Acute) Lumbar degenerative disc disease (Acute) Hyperglycemia (Acute) Breast cancer (Acute) Chronic renal insufficiency (Acute) Hypertension, essential, benign (Acute) Hypercalcemia (Acute) Subdural hemorrhage following injury (Acute) Ureteral stone (Acute) Medical History Medical History (Updated 01/07/25 @ 19:57 by Zeny Nix PA-C) UTI (urinary tract infection) Kidney stone on right side Social History Social History (Updated 01/07/25 @ 06:42 by Chandana Muniz MD) Smoking Status: Smoker current status unk Second hand tobacco smoke exposure: No Do you dip or chew tobacco?: No Do you vape?: No Living arrangement: At home Marital Status: Living Condition: Alone Support Person: Yes Physical Activity: Chairfast Level: Assisted Do you feel safe in your home environment?: Yes History of physical, verbal, emotional, or financial abuse?: No ETOH Use: None Substance Use: denies use 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 Are you following a diet prescribed by a doctor: No POLST Patient has POLST: No Exam Exam Vital Signs: Vital Signs x48h Temp Pulse Resp BP Pulse Ox 01/07/25 18:30 69 170/86 H 98 01/07/25 18:17 36.4 C L 74 18 170/86 H 98 Constitutional normal general appearance HENMT normocephalic, head/scalp atraumatic and hearing grossly normal bilaterally Eyes PERRL, EOMs intact bilaterally and conjunctivae normal Neck/C-Spine visual inspection normal No C-spine tenderness Respiratory breath sounds equal bilaterally, normal respiratory effort and clear to auscultation bilaterally Cardiovascular normal heart rate noted, regular rhythm noted, no gallop and no rub Extremities Right hip pain and swelling on initial examination no shortening or inversion of hip on examination. Pulses intact distally sensation intact throughout reproducible right knee pain as well. Results Vitals Vitals: Vital Signs - 24 hr 01/07/25 18:17 01/07/25 18:30 01/07/25 19:10 Temperature 36.4 C L Temperature Source Temporal Artery Scan Pulse Rate 74 69 Pulse Strength Weak Respiratory Rate 18 Blood Pressure 170/86 H 170/86 H O2 Saturation 98 98 O2 Source Room air Room air Pain Intensity 7 01/07/25 19:23 Temperature Temperature Source Pulse Rate Pulse Strength Respiratory Rate Blood Pressure O2 Saturation O2 Source Pain Intensity 5 Oxygen O2 Source Room air PD Medical Decision Making ED course Complexity details: reviewed old records and reviewed results ED course: Patient 84-year-old female presents to the emergency department after a fall patient landed on right hip after mechanical fall she did hit her head lose consciousness unable to ambulate after fall. She is not on any blood thinners had incidental fracture to left hip from mechanical fall last year as well. Vitals stable here in the ED, reproducible right hip pain on examination with decreased ROM seconday to pain, pateint remains neurovascularly intact. Pateint recently diagnosed with UTI finsihed course of antibiotics today. CT femur: Comminuted, intertrochanteric fracture of the right femur. CT head: No acute intracranial pathology. CT cervical spine: No acute, displaced fracture or traumatic subluxation. Discussed case with Dr. Vides given intra trochanteric fracture of the right hip patient remains neurovascularly intact pain slightly improved with morphine. He agrees to admission and patient plan for surgery tomorrow n.p.o. at midnight. Discussed with Radha Teran for admission and she is agreeable with this plan at this time. Discharge Plan Discharge Patient Disposition: [facility] DC/Xfer Condition: Good Clinical Impression: Closed femur fracture Prescriptions: No Action zolpidem 10 mg tablet 10 mg PO .night Qty: 90 3RF Rx Instructions: for sleep metoprolol succinate 25 mg tablet extended release 24 hr 25 mg PO HS Qty: 90 3RF pantoprazole 40 mg tablet,delayed release (DR/EC) 40 mg PO QDAC Qty: 90 3RF paroxetine HCl 40 mg tablet 40 mg PO QDAY Qty: 90 3RF Rx Instructions: for anxiety rosuvastatin 10 mg tablet 10 mg PO QDAY Qty: 90 3RF furosemide 20 mg tablet 20 mg PO QAM PRN (Reason: edema) Qty: 90 3RF Rx Instructions: swelling cyclobenzaprine 5 mg tablet 5 mg PO TID PRN (Reason: muscle spasm) hydrocodone-acetaminophen 5-325 mg tablet See Rx Instructions PO .COMPLEX PRN (Reason: pain) Qty: 30 0RF Rx Instructions: orally PRN; take 1/2 - 1 tablet twice daily as needed for pain Print Language: [place]
--- NOTE | 2025-01-07 20:13 | XRAY Report ---
PROCEDURE: XR Pelvis 1-2V INDICATIONS: ap view TECHNIQUE: 2 view(s) of the pelvis acquired. COMPARISON: Earlier CT study from the same day.. FINDINGS: Bones: Acute comminuted fracture involving the intertrochanteric region of proximal right femur. Superior migration of right femoral shaft in relation to femoral head is seen. Prior fixation of left proximal femur is seen. Bilateral hip joint osteoarthritic changes are noted without evidence of avascular necrosis of femoral heads. No suspicious bony lesions. Soft tissues: Visualized bowel gas pattern is normal. No suspicious soft tissue calcifications. Right-sided ureteral stent is seen. IMPRESSION: Acute comminuted and displaced fracture involving intertrochanteric region of right proximal femur as above. Reviewed by: Enrique Huntley MD on 01/07/2025 8:12 PM PDT Approved by: Enrique Huntley MD on 01/07/2025 8:12 PM PDT Station ID: [id number]
[2025-01-07] MEDS: HYDROmorphone 0.5 MG/0.5 ML SYRINGE IVP STA (20:41)
--- OUTSIDE RECORDS SUMMARY | 2025-01-07 21:21 | EXTERNAL MEDICAL SUMMARY RPT | Continuity of Care Document ---
Author Organization [facility] Address [address] [place] [id number] Phone Problems date description facility 2024-10-13 08:34 Fracture of unspecif ied part of neck of left femur, initial encounter for closed fracture [facility] 2024-10-14 09:14 Disorientation, unspecified i [facility] 2024-10-14 15:08 Fracture of unspecif ied part of neck of left femur, initial encounter for closed fracture [facility] 2024-10-15 20:20 Altered mental status, unspecif ied [facility] 2024-10-16 11:11 Calculus of kidney [facility] 2024-10-16 11:11 Calculus of ureter [facility] 2024-10-16 11:11 Urinary tract infection, site n ot specified [facility] 2024-10-16 11:15 Calculus of kidney [facility] 2024-10-16 11:15 Calculus of ureter [facility] 2024-10-16 11:15 Urinary tract infection, site n ot specified [facility] 2024-10-16 11:16 Calculus of kidney [facility] 2024-10-16 11:16 Calculus of ureter [facility] 2024-10-16 11:16 Urinary tract infection, site n ot specified [facility] 2024-10-21 12:58 Chronic kidney disease, stage 2 (mild) [facility] 2024-10-21 12:58 Calculus of ureter [facility] 2024-10-21 12:58 Urinary tract infection, site n ot specified [facility] 2024-10-21 12:58 Edema, unspecified [facility] 2024-10-21 12:58 Fracture of unspecif ied part of neck of left femur, initial encounter for closed fracture [facility] 2024-10-21 18:10 Anemia, unspecified [facility] 2024-10-21 18:10 Depression, [facility] 18:10 Anxiety disorder, [facility] 2024-10-21 18:10 Essential (primary) hypertensio n [facility] 2024-10-21 18:10 Pain in left hip [facility] 2024-10-21 18:10 Chronic kidney disease, stage 2 (mild) [facility] 2024-10-21 18:10 Calculus of ureter [facility] 2024-10-21 18:10 Urinary tract infection, site n ot specified [facility] 2024-10-21 18:10 Altered mental status, unspecif ied [facility] 2024-10-21 18:10 Edema, unspecified [facility] 2024-10-21 18:10 Fracture of unspecif ied part of neck of left femur, initial encounter for closed fracture [facility] 2024-10-21 18:10 Displaced intertroch anteric fracture of left femur, initial encounter for closed fracture [facility] 2024-10-21 18:10 Unspecified injury of left hip, [facility] 2024-[facility]-10 14:26 Urinary tract infection, site n ot specified [facility] 2024-11-10 14:29 Urinary tract infection, site n ot specified [facility] 2024-11-10 14:31 Anemia, unspecified [facility] 2024-11-10 14:31 Depression, unspecified [facility] 2024-11-10 14:31 Anxiety disorder, unspecified [facility] 2024-11-10 14:31 Essential (primary) hypertensio n [facility] 2024-11-10 14:31 Pain in left hip [facility] 2024-11-10 14:31 Chronic kidney disease, stage 2 (mild) [facility] 2024-11-10 14:31 Urinary tract infection, site n ot specified [facility] 2024-11-10 14:31 Altered mental status, unspecif ied [facility] 2024-11-10 14:31 Fracture of unspecif ied part of neck of left femur, initial encounter for closed fracture [facility] 2024-11-10 14:31 Displaced intertroch anteric fracture of left femur, initial encounter for closed fracture [facility] 2024-11-10 14:31 Unspecified injury of left hip, [facility] 14:32 Anemia, unspecified [facility] 2024-11-10 14:32 Depression, unspecified [facility] 2024-11-10 14:32 Anxiety disorder, unspecified [employer] 2024-11-10 14:32 Essential (primary) hypertensio n [employer] 2024-11-10 14:32 Pain in left hip [facility] 2024-11-10 14:32 Chronic kidney disease, stage 2 (mild) [facility] 2024-11-10 14:32 Calculus of ureter [facility] 2024-11-10 14:32 Urinary tract infection, site n ot specified [facility] 2024-11-10 14:32 Altered mental status, unspecif ied [facility] 2024-11-10 14:32 Fracture of unspecif ied part of neck of left femur, initial encounter for closed fracture [facility] 2024-11-10 14:32 Displaced intertroch anteric fracture of left femur, initial encounter for closed fracture [facility] 2024-11-10 14:32 Unspecified injury of left hip, [facility]10 14:33 Depression, unspecified [facility] 2024-11-10 14:33 Essential (primary) hypertensio n [facility] 2024-11-10 14:33 Chronic kidney disease, stage 2 (mild) [facility] 2024-11-10 14:33 Fracture of unspecif ied part of neck of left femur, initial encounter for closed fracture [employer] 2024-11-10 14:34 Anemia, unspecified [facility] 2024-11-10 14:34 Depression, unspecified [employer] 2024-11-10 14:34 Anxiety disorder, unspecified [facility] [employer] 2024-11-10 14:34 Essential (primary) hypertensio n [facility] 2024-11-10 14:34 Pain in left hip [facility] 2024-11-10 14:34 Chronic kidney disease, stage 2 (mild) [facility] 2024-11-10 14:34 Calculus of ureter [facility] 2024-11-10 14:34 Urinary tract infection, site n ot specified [facility] 2024-11-10 14:34 Altered mental status, unspecif ied [facility] 2024-11-10 14:34 Fracture of unspecif ied part of neck of left femur, initial encounter for closed fracture [facility] 2024-11-10 14:34 Displaced intertroch anteric fracture of left femur, initial encounter for closed fracture [facility] 2024-11-10 14:34 Unspecified injury of left hip, initial encounter [facility] 2024-11-10 14:35 Depression, unspecified [facility] 2024-11-10 14:35 Essential (primary) [facility]ensio [facility] 2024-11-10 14:35 Chronic kidney disease, stage 2 (mild) [facility] 2024-11-10 14:35 Fracture of unspecif ied part of neck of left femur, initial encounter for closed fracture [facility] 2024-11-10 14:36 Calculus of ureter [facility] 2024-11-10 14:36 Urinary tract infection, site n ot specified [facility] 2024-11-11 00:04 Urinary tract infection, site n ot specified [facility] 2024-11-11 13:25 Urinary tract infection, site n ot specified [facility] 2024-11-11 14:13 Urinary tract infection, site n ot specified [facility] 2024-12-16 09:11 Anemia, unspecified [facility] 2024-12-16 09:11 Depression, unspecified [facility] 2024-12-16 09:11 Anxiety disorder, unspecified [facility] 2024-12-16 09:11 Essential (primary) hypertensio n [facility] 2024-12-16 09:11 Pain in left hip [facility] 2024-12-16 09:11 Chronic kidney disease, stage 2 (mild) [facility] 2024-12-16 09:11 Altered mental status, unspecif ied [facility] 2024-12-16 09:11 Fracture of unspecif ied part of neck of left femur, initial encounter for closed fracture [facility] 2024-12-16 09:11 Displaced intertroch anteric fracture of left femur, initial encounter for closed fracture [facility] 2024-12-16 09:11 Unspecified injury of left hip, initial encounter [facility] 2024-12-22 09:53 Noninfective gastroenteritis an d colitis, unspecified [facility] 2024-12-22 09:53 Pain in left knee [facility] 2024-12-22 09:53 Other intervertebral disc degeneration, lumbar region without mention of lumbar back pain or lower extremity pain [facility] 2024-12-22 09:53 Calculus of ureter [facility] 2024-12-22 09:53 Fracture of unspecif ied part of neck of left femur, initial encounter for closed fracture [facility] 2024-12-22 10:26 Other chronic pain [facility] 2024-12-22 10:26 Pain in left knee [facility] 2024-12-22 10:26 Other intervertebral disc degeneration, lumbar region without mention of lumbar back pain or lower extremity pain [facility] 2024-12-22 10:26 Low back pain, unspecified [facility] 2024-12-22 10:26 Fracture of unspecif ied part of neck of left femur, initial encounter for closed fracture [facility] 2024-12-22 10:28 Other chronic pain [facility] 2024-12-22 10:28 Pain in left knee [facility] 2024-12-22 10:28 Other intervertebral disc degeneration, lumbar region without mention of lumbar back pain or lower extremity pain [facility] 2024-12-22 10:28 Low back pain, unspecified [facility] 2024-12-22 10:28 Fracture of unspecif ied part of neck of left femur, initial encounter for closed fracture [facility] 2024-12-23 00:02 Other chronic pain [facility] 2024-12-23 00:02 Pain in left knee [facility] 2024-12-23 00:02 Other intervertebral disc degeneration, lumbar region without mention of lumbar back pain or lower extremity pain [facility] 2024-12-23 00:02 Low back pain, unspecified [facility] 2024-12-23 00:02 Fracture of unspecif ied part of neck of left femur, initial encounter for closed fracture [facility] 2024-12-23 09:02 Anemia, unspecified [facility] 2024-12-23 09:02 Depression, unspecified [facility] 2024-12-23 09:02 Anxiety disorder, unspecified [facility] 2024-12-23 09:02 Other [facility] 2024-12-23 09:02 Essential (primary) hypertensio n [facility] 2024-12-23 09:02 Pain in left hip [facility] 2024-12-23 09:02 [facility] 09:02 Other intervertebral disc degeneration, lumbar region without mention of lumbar back pain or lower extremity pain [facility] 2024-12-23 09:02 Low back pain, unspecified [facility] [employer] 2024-12-23 09:02 Chronic kidney disease, stage 2 (mild) [facility] 2024-12-23 09:02 Altered mental status, unspecif ied [facility] 2024-12-23 09:02 Fracture of unspecif ied part of neck of left femur, initial encounter for closed fracture [facility] 2024-12-23 09:02 Displaced intertroch anteric fracture of left femur, initial encounter for closed fracture [facility] 2024-12-23 09:02 Unspecified injury of left hip, [facility] 2024-[facility]-24 14:47 [facility] 14:47 Low back pain, unspecified [facility] [employer] 2024-12-24 14:47 Fracture of unspecif ied part of neck of left femur, initial encounter for closed fracture [facility] 2024-12-31 14:03 Weakness [facility] 2025-01-01 09:46 Weakness [facility] 2025-01-02 14:11 Urinary tract infection, site n ot specified [facility] 2025-01-02 16:00 Urinary tract infection, site n ot specified [facility] 2025-01-04 11:52 Urinary tract infection, site n ot specified [facility] 2025-01-06 11:24 Hallucinations, unspecified i [facility] 2025-01-06 11:35 Encounter for observ ation for other suspected diseases and conditions ruled out [employer] Results/Labs test date facility value unit notes Result panel 1 MG NH4 PO4 (STRUVITE) 2024-10-05 09:44 [facility] 10 % (missing) STONE SIZE 2024-10-05 09:44 [facility] 12x5 mm Multiple pieces received. Dimensions of the largest piece reported. CARBONATE APATITE 2024-10-05 09:44 [facility] 20 % (missing) STONE WEIGHT 2024-10-05 09:44 [facility] 288 mg (missing) CALCIUM OXALATE MONOHYDRATE 2024-10-05 09:44 [facility] 70 % (missing) STONE ANALYSIS COMMENT 2024-10-05 09:44 [facility] Comment (missing ) Calculus received wet. Wet calculi must be dried before analysis, which delays reporting of results. Leaving calculi wet (such as water, saline, blood, urine) may lead to changes in composition. Performed at: [address] [id number] [employer]: Jaden Doshi PhD, Phone: [phone] [facility] 2024-10-05 09:44 [facility] Comment (missing ) Urinary Bladder 2,8 DIHYDROXYADENINE 2024-10-05 09:44 [facility] TNP (missing ) (missing) AMMONIUM ACID URATE 2024-10-05 09:44 [facility] T[facility] (missing ) (missing) BILIRUBIN 2024-10-05 09:44 [facility] TNP (missing ) (missing) CAHPO4 (BRUSHITE) 2024-10-05 [...] ) (missing) DRUG OR METABOLITE 2024-10-05 09:44 [facility] TNP (missing ) (missing) HYDROXYAPATITE 2024-10-05 09:44 [facility] TNP (missing ) (missing) MGHPO4 (NEWBERYITE) 2024-10-05 09:44 [facility] TNP (missing ) (missing) OTHER COMPONENT(S) 2024-10-05 09:44 [facility] TNP (missing ) (missing) SODIUM ACID URATE 2024-10-05 09:44 [facility] TNP (missing ) (missing) STONE ANALYSIS [...] Result panel 2 CUL, URINE 2024-11-10 15:40 [facility] 5050,000-100,000 CFU/mL (missing) (missing) CUL, URINE 2024-11-10 15:40 [facility] BETA STREP B: Susceptibility testing is not generally (missing) (missing) CUL, URINE 2024-11-10 15:40 [facility] IDMICID/RADHA COM* (missing) (missing) CUL, URINE 2024-11-10 15:40 [facility] SENSNISENSITIVITIES NOT INDICATED FOR THIS ISOLATE (missing) (missing) O:STRGPB 2024-11-10 15:40 [facility] STRGPBBETA HEMOLYTIC STREP GROUP BBETA HEMOLYTIC STREP GROUP B (missing) (missing) CUL, URINE 2024-11-10 15:40 [facility] UCC.6COLONY COUNT (missing) (missing) CUL, URINE 2024-11-10 15:40 [facility] indicated due to this organism's predictable susceptibility (missing) (missing) CUL, URINE 2024-11-10 15:40 [facility] to ampicillin, penicillin, cephalosporins, levofloxacin and (missing) (missing) CUL, URINE 2024-11-10 15:40 [facility] vancomycin. (missing) (missing) Result panel 3 NUCLEATED RED BLOOD CELLS AUTO 2024-12-28:14 [facility] 0.0 /100wbc (missing) NRBC ABSOLUTE COUNT (AUTO) 2024-12-28 20:14 [facility] [employer] 0.00 x10 3/ul (missing) BASOPHILS # (AUTO) 2024-12-28 20:14 [facility] 0.1 10 3/ul (missing) EOSINOPHILS # (AUTO) 2024-12-28 20:14 [facility] 0.2 10 3/ul (missing) BILIRUBIN,TOTAL 2024-12-28:14 [facility] 0.6 mg /dl As of November 2022 testing method has changed, this may include reference ranges. LYMPHOCYTES # (AUTO) 2024-12-28 20:14 [facility] [employer] 0.8 10 3/ul (missing) MONOCYTES # (AUTO) 2024-12-28 20:14 [facility] 0.9 10 3/ul (missing) ALBUMIN/GLOBULIN RATIO 2024-12-28 20:14 [employer] 1.1 (missing) (missing) CREATININE 2024-12-28 20:14 [employer] 1.3 mg/dl As of November 2022 testing method has changed, this may include reference ranges. GLUCOSE 2024-12-28 20:14 [employer] 103 mg/dl As of November 2022 testing method has changed, this may include reference ranges. CHLORIDE 2024-12-28 20:14 [employer] 106 mmol/l As of November 2022 testing method has changed, this may include reference ranges. ALT ALANINE AMINOTRANSFERASE 2024-12-28 20:14 [employer] 11 iu/l As of November 2022 testing method has changed, this may include reference ranges. HGB - HEMOGLOBIN 2024-12-28 20:14 [employer] 11.5 g /dl (missing) LIPASE 2024-12-28 20:14 [employer] 12 u/l As of November 2022 testing method has changed, this may include reference ranges. SODIUM 2024-12-28 20:14 [employer] 137 mmol/l (missing) RED CELL DISTRIBUTION WIDTH 2024-12-28 20:14 [employer] 16.0 % (missing) BUN - BLOOD UREA NITROGEN 2024-12-28 20:14 [employer] 19 mg/dl As of Nov testing method has changed, this may include reference ranges. AST ASPARTATE AMINOTRANSFERASE 2024-12-28 20:14 [employer] 26 iu/l As of November 2022 testing method has changed, this may include reference ranges. CARBON DIOXIDE - CO2 2024-12-28 20:14 [employer] 26 mmol/l As of November 2022 testing method has changed, this may include reference ranges. PLT - PLATELET COUNT 2024-12-28 20:14 [employer] 261 10 3/ul (missing) MEAN CORPUSCULAR HEMOGLOBIN 2024-12-28 20:14 [employer] 28.5 pg (missing) GLOBULIN 2024-12-28 20:14 [employer] 3.5 g/dl (missing) ALBUMIN 2024-12-28 20:14 [employer] 3.7 g/dl As of November 2022 testing method has changed, this may include reference ranges. POTASSIUM 2024-12-28 20:14 [facility] 3.9 mmol/l As of November 2022 testing method has changed, this may include reference ranges. MEAN CORPUSCULAR HGB CONC 2024-12-28 20:14 [facility] [employer] 31.4 g/dl (missing) HCT - HEMATOCRIT 2024-12-28 20:14 [facility] [employer] 36.6 % (missing) GFR - MDRD 2024-12-28 20:14 [facility] 39 (in g) Social History date description facility
--- NOTE | 2025-01-07 21:22 | HISTORY & PHYSICAL EXAMINATION ---
Chief Complaint Chief Complaint Chief Complaint: R hip pain after fall. History of Present Illness History Obtained From Records Reviewed: PCP notes, most recent hospitalization History obtained from: Patient and son History of Present Illness HPI Comment/Other: 84-year-old female with past medical history of nephrolithiasis, left hip fracture, chronic diarrhea, chronic pain, spontaneous subdural hematoma presents to the emergency department this evening after a mechanical ground-level fall at home. Her son had come up from [place] this evening and had run out to get takeout. When he came back he found his mother on the floor. She states that she had been standing and head turned to her right side and fallen. She is not quite sure what made her fall but she did not have any dizziness she did not pass out and she did not hit her head. It is possible that her hip gave way and she fell. She has a past medical history of hypertension treated with metoprolol. She denies any cardiac arrhythmias aside from occasional PVCs. She is seeing Dr. Hernandez for nephrolithiasis and has a procedure planned on Saturday. January 11. Dr. Hernandez is planning a cystoscopy, right ureteroscopy, laser lithotripsy and stent exchange. She was recently treated for a group B strep urinary tract infection. Urinalysis is pending at this time. She has some chronic shortness of breath. When she goes grocery shopping she usually uses one of the mechanical scooters. She does ambulate household distances without shortness of breath. She uses a four-wheel walker at all times. She no longer drives. She lives alone with 3 hours of caregiving help coming into the home per day. This patient takes Ambien to sleep whenever she can get the medication. I had a discussion with her son in the hallway and he relates to me that she has been having hallucinations at home. She sees things in the corner that are not there. She imagines that she has a second story on her home and people are playing music up there. He will frequently point out to her that these things are not real and she will often except this baby's hallucinations do seem to be recurrent in nature. She does not drink alcohol. She does not use tobacco products. She lives alone. She denies having a POLST form in place. Her son Prasanth is her designated surrogate medical decision maker. She is unquestionably a DNR resuscitation status. Meds/Allgy Home Medications Ambulatory Orders Medication Instructions Recorded Confirmed cyclobenzaprine 5 mg tablet 5 mg PO TID PRN muscle spa sm 03/27/24 01/04/25 zolpidem 10 mg tablet 10 mg PO .night #90 tabs 01/04/25 furosemide 20 mg tablet 20 mg PO QAM PRN edema #90 t abs 10/21/24 01/04/25 metoprolol succinate 25 mg 25 mg PO HS #90 tabs 01/04/25 tablet,extended release 24 hr pantoprazole 40 mg tablet,delayed 40 mg PO QDAC #90 ta bs 10/21/24 01/04/25 release paroxetine HCl 40 mg tablet 40 mg PO QDAY #90 tabs 09/1101/04/25 rosuvastatin 10 mg tablet 10 mg PO QDAY #90 tabs 10/2101/04/25 hydrocodone 5 mg-acetaminophen 325 See Rx Instructions PO .COMPLEX 12/22/24 01/04/25 mg tablet PRN pain #30 tabs Allergies Allergies Allergy/AdvReac Type Severity Reaction Status Date / Time adhesive tape Allergy Unknown Verified 01/07/25 18:24 ciprofloxacin (From Cipro) Allergy Unknown Verified 01/07/25 18:24 Penicillins AdvReac Anaphylaxis Verified 01/07/25 18:24 PFS Active Problems All Active Problems (Updated 01/07/25 @ 22:03 by KATHRYN Hollingsworth) Hypertension (Acute) Fracture, intertrochanteric, right femur (Acute) Closed femur fracture (Acute) Hallucinations (Acute) UTI (urinary tract infection) (Acute) Generalized weakness (Acute) Knee pain, left (Acute) Chronic diarrhea (Acute) UTI (urinary tract infection) (Acute) Edema (Acute) Anemia (Acute) Fracture of left hip (Acute) Urge incontinence (Acute) Insomnia (Acute) Depression (Acute) Lumbar degenerative disc disease (Acute) Hyperglycemia (Acute) Breast cancer (Acute) Chronic renal insufficiency (Acute) Hypertension, essential, benign (Acute) Hypercalcemia (Acute) Subdural hemorrhage following injury (Acute) Ureteral stone (Acute) Medical History Medical History (Updated 01/07/25 @ 22:03 by KATHRYN Hollingsworth) UTI (urinary tract infection) Kidney stone on right side Social History Social History (Updated 01/07/25 @ 21:21 by KATHRYN Hollingsworth) Smoking Status: Never smoker Second hand tobacco smoke exposure: No Do you dip or chew tobacco?: No Do you vape?: No Living arrangement: At home Marital Status: Living Condition: Alone Support Person: Yes Physical Activity: Chairfast Level: Assisted Home Mobility Equipment: Wheeled walker Do you feel safe in your home environment?: Yes History of physical, verbal, emotional, or financial abuse?: No ETOH Use: None Substance Use: denies use 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 No longer drives. Has 3 hours of caregiving help per day. Ambulates with a four-wheel walker. Exam Exam Vital Signs: Vital Signs x48h Temp Pulse Pulse Resp BP BP Pulse Ox 01/07/25 22:00 36.6 C 73 16 125/84 97 01/07/25 21:43 36.2 C L 76 18 169/69 H 96 01/07/25 20:57 75 18 174/86 H 97 01/07/25 18:30 69 170/86 H 98 01/07/25 18:17 36.4 C L 74 18 170/86 H 98 Constitutional normal general appearance, no apparent distress and average body habitus HENMT normocephalic, head/scalp atraumatic and hearing grossly normal bilaterally Eyes PERRL, conjunctivae normal and no scleral icterus Neck/C-Spine visual inspection normal and trachea midline Lymph no lymphadenopathy noted Chest inspection of chest normal Respiratory breath sounds equal bilaterally, normal respiratory effort, clear to auscultation bilaterally, no wheezes and no use of accessory muscles Cardiovascular normal heart rate noted Gastrointestinal abdomen soft to palpation Extremities normal to inspection 3+ pedal edema to the mid calf. Neurology technology consultant II-XII intact and GCS 15 on prolonged conversation, it is clear that patient has some mild cognitive impairment, but does demonstrate a GCS 15. She forgets some details regarding her previous hip fracture about 6 months ago. Psychiatry mental status grossly normal, oriented x3, thought process normal, cooperative, affect normal and memory normal (mild deficits.) Skin skin color normal and no rash Conclusion/Plan Problem List (1) Fracture, intertrochanteric, right femur: Plan: Right hip fracture. I will admit this patient to medicine service in preparation for operative treatment of right hip fracture on hospital day 2. She will be n.p.o. after midnight. We have checked EKG in the emergency department. She has sinus rhythm at a rate of 69. With her recent history of recurrent urinary tract infections I have requested a urinalysis. This is pending at this time. Most recent urine culture done on 01/01/2025 shows group B strep. Per the patient and her son she was treated with 3-day course of antibiotics. This patient was discussed with Dr. Vides of orthopedics. The operative plan was discussed. No further optimization is needed for surgery. This patient was discussed with Yasmine Nix PA-C in the emergency department decision was made to admit her to inpatient status for operative treatment of her right intertrochanteric femur fracture. The plan will be to mobilize the patient on postop day 1. She will have PT on postop day 2 as we have no PT in house on postop day 1. She will likely require SNF upon departure from the hospital. (2) Edema: Plan: She has had lower extremity edema for several months. She has been seen by her primary care provider regarding this and has been started on Lasix which she takes as needed. She has 2-3+ pitting edema to the mid calf on exam this evening. She does not think she has had an echocardiogram completed. I do not see an echocardiogram in our system. I will order echocardiogram to be completed this hospitalization to assess her valvular function, chamber size and ejection fraction. (3) Insomnia: Plan: I find her use of Ambien somewhat concerning especially in light of her son describing her recent hallucinations to me. I checked the PDMP report on this patient. She was prescribed fifteen 5 mg tablets of Ambien on August 07, filled on August 19. These were not written by her PCP. She is also on concurrent hydrocodone for chronic back and joint pain. Ambien is the beers criteria drug. Is linked with dementia and behavioral disturbances in the geriatric population. I have educated the patient and her son about use of this medication and I recommend against it. (4) Hypertension: Plan: She denies a history of atrial fibrillation. She states she takes metoprolol 25 mg at bedtime for hypertension. She states she does have a history of PACs. I am continuing her metoprolol succinate 25 mg at bedtime. I will monitor her blood pressures. Plan I have spent 80 minutes in the care of this patient today. This includes time [id number], review and ordering of diagnostic imaging and laboratory studies and consultation with other providers. Lab Results Lab results reviewed: Yes Diagnostic Imaging Results Diagnostic Imaging Results: positive Prelim report reviewed Diagnostic Imaging Results Comments: R intertroch fx EKG Results EKG Interpreted Independently: Yes EKG Comparison: Unchanged from prior EKG Core Measures Anticipated LOS I expect patient to be DC'd or transferred within 96 hours.: Yes Issues Hospital Issues and Management Plan: hip fracture- admit to inpatient for repair, PT eval and likely SNF placement. DVT/VTE - Prophylaxis VTE/DVT Device ordered at admit?: Yes VTE/DVT Prophylaxis med ordered at admit?: No Not Ordered - Medical Reason: Contraindicated (OR in the AM)
[2025-01-07] MEDS ORDERED: ONDANSETRON 4 MG/2 ML VIAL IVP PRN (22:24)
[2025-01-07] MEDS: METOPROLOL SUCCINATE 25 MG TABLET PO SCH (22:43)
[2025-01-07] MEDS: SODIUM CHLORIDE 0.9% 1,000 ML IV SCH (22:44)
[2025-01-07] MEDS: SODIUM CHLORIDE FLUSH 0.9% 10 ML SYRINGE IVP SCH (23:30)
[2025-01-07] MEDS: oxyCODONE 5 MG TABLET PO PRN (23:40)
[2025-01-08] MEDS: INSULIN REGULAR, HUMAN 300 UNIT/3 ML PEN SUBQ SCH (01:11)
[2025-01-08 03:17] LABS: GLUCOSE, URINE (UA) NEGATIVE (NEGATIVE); KETONES,URINE (UA) 40 mg/dL (NEGATIVE); OCCULT BLOOD,URINE SMALL (NEGATIVE)
[2025-01-08 03:21] LABS: SQUAMOUS EPITHELIAL CELL,UR MANY Squamous (<= Few)
[2025-01-08 05:57] LABS: HCT - HEMATOCRIT 32.6 % (37.0-47.0); HGB - HEMOGLOBIN 10.4 g/dL (12.0-16.0); MEAN PLATELET VOLUME 9.3 fL (7.9-10.8); NRBC ABSOLUTE COUNT (AUTO) 0.00 x10^3/uL; NUCLEATED RED BLOOD CELLS AUTO 0.0 /100WBC; PLT - PLATELET COUNT 244 10^3/uL (130-450); RED CELL DISTRIBUTION WIDTH 16.6 % (12.0-15.0)
[2025-01-08 06:17] LABS: BUN - BLOOD UREA NITROGEN 15.0 mg/dL (6-20); CARBON DIOXIDE - CO2 24.0 mmol/L (21-32); CREATININE 1.1 mg/dL (0.6-1.3); GFR - MDRD 47.0 (>89)
[2025-01-08] MEDS: PANTOPRAZOLE 40 MG TABLET PO SCH (06:54)
--- NOTE | 2025-01-08 07:37 | CONSULTATION NOTE ---
Chief Complaint Chief Complaint Chief Complaint: right hip pain History of Present Illness History Obtained From History obtained from: patient History of Present Illness HPI Comment/Other: Pleasant 84-year-old female presents for right hip pain after a ground-level fall in her home. She states she was opening the door for an acquaintance when she lost her balance turning and fell to the ground. She had hip pain and was unable to bear weight. X-rays in the emergency department and CT scan showed comminuted intertrochanteric femur fracture. I met the patient at bedside this morning where she reports that she is around decision maker and was able to provide me the context of her injury and relayed the fact that she had a previous hip fracture on the other side earlier this year. She uses a walker for ambulation at baseline but states she was not using it at the time of opening the door earlier. She denies pain in the bilateral upper extremities or elsewhere in the leg and no new pain in the left side. She notes the left side is still remained a bit sore since the surgery several months ago. Meds/Allgy Home Medications Ambulatory Orders Medication Instructions Recorded Confirmed cyclobenzaprine 5 mg tablet 5 mg PO TID PRN muscle spa sm 03/27/24 01/04/25 zolpidem 10 mg tablet 10 mg PO .night #90 tabs 01/04/25 furosemide 20 mg tablet 20 mg PO QAM PRN edema #90 t abs 10/21/24 01/04/25 metoprolol succinate 25 mg 25 mg PO HS #90 tabs 01/04/25 tablet,extended release 24 hr pantoprazole 40 mg tablet,delayed 40 mg PO QDAC #90 ta bs 10/21/24 01/04/25 release paroxetine HCl 40 mg tablet 40 mg PO QDAY #90 tabs 09/1101/04/25 rosuvastatin 10 mg tablet 10 mg PO QDAY #90 tabs 10/2101/04/25 hydrocodone 5 mg-acetaminophen 325 See Rx Instructions PO .COMPLEX 12/22/24 01/04/25 mg tablet PRN pain #30 tabs Allergies Allergies Allergy/AdvReac Type Severity Reaction Status Date / Time adhesive tape Allergy Unknown Verified 01/07/25 18:24 ciprofloxacin (From Cipro) Allergy Unknown Verified 01/07/25 18:24 Penicillins AdvReac Anaphylaxis Verified 01/07/25 18:24 PFSH Active Problems All Active Problems (Updated 01/07/25 @ 22:03 by KATHRYN Hollingsworth) Hypertension (Acute) Fracture, intertrochanteric, right femur (Acute) Closed femur fracture (Acute) Hallucinations (Acute) UTI (urinary tract infection) (Acute) Generalized weakness (Acute) Knee pain, left (Acute) Chronic diarrhea (Acute) UTI (urinary tract infection) (Acute) Edema (Acute) Anemia (Acute) Fracture of left hip (Acute) Urge incontinence (Acute) Insomnia (Acute) Depression (Acute) Lumbar degenerative disc disease (Acute) Hyperglycemia (Acute) Breast cancer (Acute) Chronic renal insufficiency (Acute) Hypertension, essential, benign (Acute) Hypercalcemia (Acute) Subdural hemorrhage following injury (Acute) Ureteral stone (Acute) Medical History Medical History (Updated 01/07/25 @ 22:03 by KATHRYN Hollingsworth) UTI (urinary tract infection) Kidney stone on right side Social History Social History (Updated 01/07/25 @ 21:21 by KATHRYN Hollingsworth) Smoking Status: Never smoker Second hand tobacco smoke exposure: No Do you dip or chew tobacco?: No Do you vape?: No Living arrangement: At home Marital Status: Living Condition: Alone Support Person: Yes Physical Activity: Chairfast Level: Assisted Home Mobility Equipment: Wheeled walker Do you feel safe in your home environment?: Yes History of physical, verbal, emotional, or financial abuse?: No ETOH Use: None Substance Use: denies use 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 Are you following a diet prescribed by a doctor: No POLST Patient has POLST: No Results Lab Results 01/08/25 05:39 01/08/25 05:39 Other Lab Results: Lab Results x24hrs 01/08/25 01/08/25 01/08/25 Range/Units 07:34 05:51 05:39 WBC 7.7 (4.8-10.8) x10^3/uL RBC 3.54 L (4.20-5.40) 10^6/uL Hgb 10.4 L (12.0-16.0) g/dL Hct 32.6 L (37.0-47.0) % MCV 92.1 (81.0-99.0) fL MCH 29.4 (27.0-31.0) pg MCHC 31.9 L (32.0-36.0) g/dL RDW 16.6 H (12.0-15.0) % Plt Count 244 (130-450) 10^3/uL MPV 9.3 (7.9-10.8) fL Neut # (Auto) 5.9 (1.5-6.6) 10^3/uL Lymph # (Auto) 0.7 L (1.5-3.5) 10^3/uL [place] # (Auto) 0.9 (0.0-1.0) 10^3/uL Eos # (Auto) 0.1 (0.0-0.7) 10^3/uL Baso # (Auto) 0.1 (0.0-0.1) 10^3/uL Absolute Nucleated RBC 0.00 x10^3/uL Nucleated RBC % 0.0 /100WBC Sodium 137 (135-145) mmol/L Potassium 4.0 (3.5-4.5) mmol/L Chloride 106 (101-111) mmol/L Carbon Dioxide 24 (21-32) mmol/L Anion Gap 7.0 (6-13) BUN 15 (6-20) mg/dL Creatinine 1.1 (0.6-1.3) mg/dL Estimated GFR (MDRD) 47 L (>89) Glucose 121 H (74-104) mg/dL POC Whole Bld Glucose 117 125 (70-100) mg/dL Calcium 8.8 (8.5-10.3) mg/dL Urine Color Urine Clarity (CLEAR) Urine pH (5.0-7.5) PH Ur Specific [place] (1.002-1.030) Urine Protein (NEGATIVE) mg/dL Urine Glucose (UA) (NEGATIVE) mg/dL Urine Ketones (NEGATIVE) mg/dL Urine Occult Blood (NEGATIVE) Urine Nitrite (NEGATIVE) Urine Bilirubin (NEGATIVE) Urine Urobilinogen (NORMAL) E.U./dL Ur Leukocyte Esterase (NEGATIVE) Urine RBC (0-5) /HPF Urine WBC (0-5) /HPF Ur Squamous Epith Cells (<= Few) Urine Bacteria (None Seen) /HPF Urine Culture Comments 01/08/25 01/08/25 Range/Units 03:07 01:00 WBC (4.8-10.8) x10^3/uL RBC (4.20-5.40) 10^6/uL Hgb (12.0-16.0) g/dL Hct (37.0-47.0) % MCV (81.0-99.0) fL MCH (27.0-31.0) pg MCHC (32.0-36.0) g/dL RDW (12.0-15.0) % Plt Count (130-450) 10^3/uL MPV (7.9-10.8) fL Neut # (Auto) (1.5-6.6) 10^3/uL Lymph # (Auto) (1.5-3.5) 10^3/uL [place] # (Auto) (0.0-1.0) 10^3/uL Eos # (Auto) (0.0-0.7) 10^3/uL Baso # (Auto) (0.0-0.1) 10^3/uL Absolute Nucleated RBC x10^3/uL Nucleated RBC % /100WBC Sodium (135-145) mmol/L Potassium (3.5-4.5) mmol/L Chloride (101-111) mmol/L Carbon Dioxide (21-32) mmol/L Anion Gap (6-13) BUN (6-20) mg/dL Creatinine (0.6-1.3) mg/dL Estimated GFR (MDRD) (>89) Glucose (74-104) mg/dL POC Whole Bld Glucose 135 (70-100) mg/dL Calcium (8.5-10.3) mg/dL Urine Color YELLOW Urine Clarity HAZY (CLEAR) Urine pH 6.0 (5.0-7.5) PH Ur Specific [place] >=1.030 H (1.002-1.030) Urine Protein TRACE (NEGATIVE) mg/dL Urine Glucose (UA) NEGATIVE (NEGATIVE) mg/dL Urine Ketones 40 H (NEGATIVE) mg/dL Urine Occult Blood SMALL (NEGATIVE) Urine Nitrite NEGATIVE (NEGATIVE) Urine Bilirubin NEGATIVE (NEGATIVE) Urine Urobilinogen 0.2 (NORMAL) (NORMAL) E.U./dL Ur Leukocyte Esterase TRACE H (NEGATIVE) Urine RBC 6-10 H (0-5) /HPF Urine WBC 6-10 H (0-5) /HPF Ur Squamous Epith Cells MANY Squamous H (<= Few) Urine Bacteria Few (None Seen) /HPF Urine Culture Comments NOT INDICATED Diagnostic Imaging Results Diagnostic Imaging Results Comments: X-rays and CT scan including the right pelvis and hip demonstrate a comminuted intertrochanteric femur fracture. Review of Systems Status of ROS: 10 or more systems reviewed and unremarkable except as noted in history and below Exam Exam Vital Signs: Vital Signs x48h Temp Pulse Resp BP Pulse Ox 01/08/25 07:30 36.5 C 74 16 140/70 H 95 Alert and oriented x 3. Cooperative with exam Respiratory breathing comfortably on room air today he goes into the box Examination of the right lower extremity is shortened externally rotated. She is able to wiggle the toes and demonstrate ankle flexion dorsiflexion. Foot is warm and well-perfused Exam of the left side no pain with logroll. Nontender throughout the leg on the left. Nontender throughout the bilateral upper extremities. Demonstrates active shoulder elbow hand and wrist motion. Conclusion/Plan Problem List (1) Fracture, intertrochanteric, right femur: (2) Edema: (3) Insomnia: (4) Hypertension: Plan 84-year-old female with comminuted displaced intertrochanteric femur fracture of the right hip. I discussed the natural history of the injury in detail with the patient at bedside. We reviewed the usual indications, risk benefits expected outcomes and recovery timeline of both operative and nonoperative management. I explained to the recommendation for operative management of this fracture. She asked appropriate questions which indicated me her understanding of the plan. She she reiterated her familiarity with this injury and surgical recommendation because of the prior left hip fracture. All of her questions were answered and she wished to proceed with surgery as discussed. Plan for surgical stabilization of right intertrochanteric femur fracture. Lab Results 01/08/25 05:39 01/08/25 05:39
--- NOTE | 2025-01-08 08:44 | ANESTHESIA PROCEDURE NOTE ---
Pre-Anesthesia VS, & Labs Diagnosis Surgical Diagnosis:: right hip fracture Procedure Procedure: right hip IM nailing Vitals Vital Signs: Temp Pulse Resp BP Pulse Ox 36.5 C 74 16 140/70 H 95 01/08/25 07:30 01/08/25 07:30 01/08/25 07:30 01/08/25 07:30 01/08/25 07:30 NPO NPO: >8 hours Is Patient ?: Not Applicable Lab Results Current Lab Results: Laboratory Tests 01/08/25 07:34: POC Whole Bld Glucose 117 01/08/25 05:51: POC Whole Bld Glucose 125 01/08/25 05:39: WBC 7.7, RBC 3.54 L, Hgb 10.4 L, Hct 32.6 L, MCV 92.1, MCH 29.4, MCHC 31.9 L, RDW 16.6 H, Plt Count 244, MPV 9.3, Neut # (Auto) 5.9, Lymph # (Auto) 0.7 L, [place] # (Auto) 0.9, Eos # (Auto) 0.1, Baso # (Auto) 0.1, Absolute Nucleated RBC 0.00, Nucleated RBC % 0.0, Sodium 137, Potassium 4.0, Chloride 106, Carbon Dioxide 24, Anion Gap 7.0, BUN 15, Creatinine 1.1, Estimated GFR (MDRD) 47 L, Glucose 121 H, Calcium 8.8 01/08/25 01:00: POC Whole Bld Glucose 135 Lab results reviewed: Yes 01/08/25 05:39 01/08/25 05:39 Meds/Allgy Home Medications Ambulatory Orders Medication Instructions Recorded Confirmed cyclobenzaprine 5 mg tablet 5 mg PO TID PRN muscle spa sm 03/27/24 01/04/25 zolpidem 10 mg tablet 10 mg PO .night #90 tabs 01/04/25 furosemide 20 mg tablet 20 mg PO QAM PRN edema #90 t abs 10/21/24 01/04/25 metoprolol succinate 25 mg 25 mg PO HS #90 tabs 01/04/25 tablet,extended release 24 hr pantoprazole 40 mg tablet,delayed 40 mg PO QDAC #90 ta bs 10/21/24 01/04/25 release paroxetine HCl 40 mg tablet 40 mg PO QDAY #90 tabs 09/1101/04/25 rosuvastatin 10 mg tablet 10 mg PO QDAY #90 tabs 10/2101/04/25 hydrocodone 5 mg-acetaminophen 325 See Rx Instructions PO .COMPLEX 12/22/24 01/04/25 mg tablet PRN pain #30 tabs Allergies Allergies Allergy/AdvReac Type Severity Reaction Status Date / Time adhesive tape Allergy Unknown Verified 01/07/25 18:24 ciprofloxacin (From Cipro) Allergy Unknown Verified 01/07/25 18:24 Penicillins AdvReac Anaphylaxis Verified 01/07/25 18:24 PFS Active Problems All Active Problems Hypertension (Acute) Fracture, intertrochanteric, right femur (Acute) Closed femur fracture (Acute) Hallucinations (Acute) UTI (urinary tract infection) (Acute) Generalized weakness (Acute) Knee pain, left (Acute) Chronic diarrhea (Acute) UTI (urinary tract infection) (Acute) Edema (Acute) Anemia (Acute) Fracture of left hip (Acute) Urge incontinence (Acute) Insomnia (Acute) Depression (Acute) Lumbar degenerative disc disease (Acute) Hyperglycemia (Acute) Breast cancer (Acute) Chronic renal insufficiency (Acute) Hypertension, essential, benign (Acute) Hypercalcemia (Acute) Subdural hemorrhage following injury (Acute) Ureteral stone (Acute) Medical History Medical History UTI (urinary tract infection) Kidney stone on right side Surgical History Surgical History (Updated 01/08/25 @ 08:42 by Ilene Torres CRNA) Hx of left mastectomy History of cholecystectomy History of section History of hip surgery left hip nailing History of carpal tunnel release of both wrists History of lithotripsy cysto, ureteroscopy, stent exchange, bladder stone removal Social History Social History (Updated 01/07/25 @ 21:21 by KATHRYN Hollingsworth) Smoking Status: Never smoker Second hand tobacco smoke exposure: No Do you dip or chew tobacco?: No Do you vape?: No Living arrangement: At home Marital Status: Living Condition: Alone Support Person: Yes Physical Activity: Chairfast Level: Assisted Do you feel safe in your home environment?: Yes History of physical, verbal, emotional, or financial abuse?: No ETOH Use: None Substance Use: denies use 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 Are you following a diet prescribed by a doctor: No POLST Patient has POLST: No Anesthesia Exam (Expanded) Exam General: Alert, Oriented x3 and Cooperative Dental: Poor dentition (Multiple loose teeth.) Mouth Openin Fingerbreadth Neck Mobility: Reduced Mallampati classification: II Thyromental Distance: 4-6 cm Respiratory: Lungs clear Cardiovascular: Regular rate, Normal S1 and Normal S2 Exam Exam Vital Signs: Vital Signs x48h Temp Pulse Resp BP Pulse Ox 01/08/25 07:30 36.5 C 74 16 140/70 H 95 Plan Plan Anesthesia Type: General and Fascia [place] Block (Right) Consent for Procedure(s) Verified and Reviewed: Yes Code Status: Attempt Resuscitation ASA Classification ASA classification: 3-Severe systemic disease Is this case an emergency?: No
[2025-01-08] MEDS ORDERED: LIDOCAINE-PF 2% 10 ML AMP SUBQ ONE (08:58)
[2025-01-08] MEDS ORDERED: ONDANSETRON 4 MG/2 ML VIAL ONE (08:58)
[2025-01-08] MEDS ORDERED: DEXAMETHASONE 4 MG/ML VIAL ONE ×2 (08:58→12:10)
[2025-01-08] MEDS ORDERED: PROPOFOL 200 MG/20 ML VIAL IVP ONE (08:58)
[2025-01-08] MEDS ORDERED: fentaNYL 100 MCG/2 ML VIAL ONE ×2 (09:01→11:40)
[2025-01-08] MEDS ORDERED: LACTATED RINGERS 1,000 ML IV PRN (10:08)
[2025-01-08] MEDS ORDERED: TRANEXAMIC ACID IN NACL 1,000 MG/100 ML BAG IV PRN (10:08)
[2025-01-08] MEDS ORDERED: VANCOMYCIN 1 GM VIAL ONE (10:37)
--- NOTE | 2025-01-08 10:45 | OPERATIVE REPORT ---
Operative Report General Admit Date: 01/07/25 Procedure Data: Operation Date: 01/08/25 10:00 Proposed Procedures p Hip Nailing(Right) - Juan Vides DO Anesthesia Type General Other Other Information/Narrative: DATE OF OPERATION: Jan 08, 2025 SURGEON: Juan Vides DO PREOPERATIVE DIAGNOSIS: right intertrochanteric femur fracture. POSTOPERATIVE DIAGNOSIS: right intertrochanteric femur fracture. PROCEDURES PERFORMED: Cephalomedullary nail fixation of the right intertrochanteric femur fracture. ANESTHESIA: General ANESTHESIOLOGIST: Ilene Torres CRNA TOOL POLISHER: none BLOOD LOSS: 100 mL. IMPLANTS:Biomet Affixus right short cephalomedullary nail with 17grm76.5mm lag screw, 47rkr6en de-rotational lag scr3ew with a single distal interlocking screw. COMPLICATIONS: None. DISPOSITION: PACU and then to the Med/Surg floor. INDICATION FOR PROCEDURE: The patient is a pleasant 84 year old F, who suffered a mechanical fall, landing on their -- hip. They had pain and inability to bear weight and were brought to the emergency room. imaging in the emergency room showed an intertrochanteric hip fracture. The patient was admitted and evaluated by medicine and anesthesia and was risk stratified for surgery. I explained the risks and benefits of surgery to the patient in great detail. We discussed the fact that a geriatric hip frx is a sentinel event and may portend a poor outcome and decline in function irrespective of our treatment plan. The AAOS estimates the 1-year mortality in patients over 50 at 24%, and only 25% of patient make a full recovery. Nevertheless, the morbidity and mortality rate associated with treating this frx nonoperatively is much higher than that associated with operative fixation and subsequent earlier ambulation due to the risk of DVT, Pneumonia, bed sores, etc. I explained the risks of bleeding, infection, nerve/muscle injury, malunion, nonunion, refracture. Patient agreed with the treatment plan and signed consent forms. PROCEDURE IN DETAIL: I saw the patient in the preoperative holding area where the operative site was marked, consents were reviewed, and questions were answered for the patient. The patient was then taken back to the operating room and was placed supine on the fracture table with all bony prominences padded. The operative leg was placed in traction and in slight external rotation to bring the femur to the abducted and externally rotated proximal fragment. The nonoperative leg was placed in the well-leg bryan. We got x-rays of the leg in traction and external rotation, and adjusted this until we felt like we had an anatomic reduction. We then prepped and draped the right leg in standard sterile fashion. A time-out was performed and preoperative antibiotics were given. I then palpated the tip of the trochanter and made a 3 cm incision 3 fingerbreadths proximal to the tip. I incised sharply longitudinally through the skin and then through the IT fascia. I palpated the tip of the trochanter, made a slit in the gluteal fascia. I then used the starting wire, placed this on the tip of the trochanter and drove it into the canal. I then over-reamed this with the opening reamer after checking the position of the pin on 2 views. I slid the nail into position and placed at the appropriate level, so that the lag screw would go directly up the appropriate position in the neck. I then used the guide to make another more distal longitudinal incision and placed the targeting device for the screw up against the lateral side of the femur. I then positioned this at the appropriate height and then drilled the K-wire up the neck. This ended up being well positioned within the neck on both AP and lateral views, and I drove this right up to the subchondral bone. This was measured and the corresponding lag screw was placed as we had buried the guide in the lateral cortex slightly. We placed this in good position with less than 1 cm from the center of the dome and an excellent tip-apex distance. I gently release traction and added a few mm of compression of the fx. We checked multiple x-rays to make sure that the lag screw was centered in the head and neck. I then tightened the firestopper installer to lock down on the screw to not allow further compression with walking.I replaced the derotational wire with a definitive derotational lag screw. I then placed the distal interlocking screw. We took off the targeting guide and got final x-rays, and we were pleased with the reduction and placement of the hardware. We irrigated all the wounds and closed the IT fascia with 0 Vicryl suture and the skin with 2-0 Vicryl suture. we closed the skin and applied sterile dressings. The patient was awakened from anesthesia and taken to the postoperative care unit in stable condition. POSTOPERATIVE COURSE: patient will return to the floor and work with physical therapy. Weight bearing as tolerated DVT prophylaxis to start post op day 1 [id number]. 24 hours perioperative antibiotics. I called the patient's family member at the end of the case. PLAN: the patient should be seen in the orthopedic office in 2-3 weeks for wound check, staple removal and x-rays (AP pelvis and cross table lateral).
[2025-01-08] MEDS ORDERED: ONDANSETRON 4 MG/2 ML VIAL IVP PRN (10:49)
[2025-01-08] MEDS ORDERED: ATROPINE ABBOJECT 1 MG/10 ML SYRINGE IVP PRN (10:49)
[2025-01-08] MEDS ORDERED: NALOXONE 0.4 MG/ML VIAL IVP PRN (10:49)
[2025-01-08] MEDS ORDERED: MORPHINE 2 MG/ML CARPUJECT IVP PRN (10:49)
[2025-01-08] MEDS ORDERED: fentaNYL 100 MCG/2 ML VIAL IVP PRN (10:49)
[2025-01-08] MEDS ORDERED: TRANEXAMIC ACID 1,000 MG/10 ML VIAL ONE (11:24)
[2025-01-08] MEDS ORDERED: ePHEDrine 50 MG/ML VIAL IVP ONE ×2 (11:26→11:46)
[2025-01-08] MEDS ORDERED: PHENYLEPHRINE HCL 0.5 MG/5 ML AMPULE ONE (11:45)
[2025-01-08 11:53] LABS: ESTIMATED AVERAGE GLUCOSE 111 mg/dL (70-100); HEMOGLOBIN A1c% 5.5 % (4.27-6.07)
[2025-01-08] MEDS ORDERED: ROPIVACAINE 0.5% PF 20 ML VIAL ONE (12:12)
[2025-01-08] MEDS ORDERED: ACETAMINOPHEN 1,000 MG/100 ML 1,000 MG/100 ML BAG IV ONE (12:32)
[2025-01-08] MEDS ORDERED: HYDROmorphone 0.5 MG/0.5 ML SYRINGE ONE (13:20)
[2025-01-08] MEDS: HYDROmorphone 0.5 MG/0.5 ML SYRINGE IVP PRN (13:21)
--- NOTE | 2025-01-08 13:37 | ANESTHESIA POST OP EVALUATION ---
Anesthesia Post Eval Post Anesthesia Eval Vitals: Last Vital Signs Temp 36.5 C 01/08/25 13:25 Pulse 79 01/08/25 13:25 Resp 20 01/08/25 13:25 BP 174/87 H 01/08/25 13:25 Pulse Ox 100 01/08/25 13:25 CV Function Including HR & BP: Stable Pain Control: Satisfactory Nausea & Vomiting: Negative Mental Status: Baseline Respiratory Status: Airway Patent Hydration Status: Satisfactory Anesthesia Complications: None
[2025-01-08] MEDS: VANCOMYCIN INJ 1 GM in SODIUM CHLORIDE 0.9% 250 ML IV ONE (14:00)
[2025-01-08] MEDS: LACTATED RINGERS 1,000 ML IV SCH (14:01)
[2025-01-08] MEDS: VANCOMYCIN INJ 1 GM in SODIUM CHLORIDE 0.9% 500 ML IV SCH (14:38)
--- NOTE | 2025-01-08 15:01 | ECHO Report ---
Version: 1 Study ID: [id number] [id number] Adult Echocardiogram Report Name: FARHAN CLEARY Study Date: 01/08/2025, 7: 45 AM Patient Location: ^2202^01 HR: 70 bpm : 1940 (MM/DD/YYYY) Gender: Female Height: 62 in Age: 84 Years Weight: 149 lb BSA: 1.69 m² Reason For Study: lower extremity edema History: History of Breast Ca. Interpretation Summary The visual left ventricular ejection fraction is estimated at 60 to 65%. Global left ventricular systolic function is normal. The right ventricle is normal in size and function. No concerning cardiac valve disease is noted. Left Ventricle: The left ventricle is normal in size. There is normal left ventricular wall thickness. No thrombus seen in the left ventricle. The visual left ventricular ejection fraction is estimated at 60 to 65%. Global left ventricular systolic function is normal. The overall diastolic pattern is one of restrictive filling with reduction of left ventricular compliance and marked elevation of left ventricular filling pressures. Right Ventricle: The right ventricle is normal in size and function. TAPSE is consistent with normal right ventricular function. The tricuspid annular plane systolic excursion (TAPSE) measurement is 2.7 cm. Aortic Valve: The aortic valve is mildly calcified. The aortic valve is trileaflet. No hemodynamically significant valvular aortic stenosis. No aortic regurgitation is present. Mitral Valve: The mitral valve leaflets are structurally normal with normal motion. No evidence of mitral stenosis is seen. There is mild mitral regurgitation. Tricuspid Valve: The tricuspid valve is structurally normal. There is no tricuspid stenosis. Mild to moderate tricuspid regurgitation present. Pulmonic Valve: The pulmonic valve is normal in structure and function. There is no pulmonic valvular stenosis. Trace pulmonic valvular regurgitation is present. Left Atrium: The left atrial size is normal. Right Atrium: The right atrium is mildly to moderately dilated. The inferior vena cava appears normal. Atrial Septum: The interatrial septum appears normal, without evidence of shunt by 2D imaging and color Doppler. Aorta: The ascending aorta is normal in size. The transverse arch is normal in size. The sinuses of Valsalva are normal in size. Pulmonary Artery: The pulmonary artery is not well visualized, but is probably normal size. The pulmonary artery systolic pressure is moderately increased. Inferior vena cava dynamics indicate normal right atrial pressures. The right ventricular systolic pressure is 51mmHg. Pericardium/Pleural Space: There is no pericardial effusion. Left Ventricle IVSd: 1.11 cm LVIDd: 4.1 cm LVPWd: 0.93 cm LVIDs: 2.9 cm ESV(sp4-el): 50.5 ml Right Ventricle TAPSE: 2.7 cm RV S Erasmo: 17.4 cm/sec Atria LA dimension: 6.0 cm LAV(MOD-sp4): 37.7 ml LAV(MOD-sp2): 38.0 ml Diastolic Function MV dec time: 0.24 sec MV E max erasmo: 80.9 cm/sec MV A max erasmo: 104.2 cm/sec Aortic Valve LVOT diam: 1.83 cm LV V1 mean P.77 mmHg LV V1 mean: 63.2 cm/sec LV V1 VTI: 21.8 cm Ao V2 VTI: 34.8 cm Ao mean P.2 mmHg Ao V2 mean: 109.6 cm/sec LV V1 max: 88.4 cm/sec LV V1 max P.1 mmHg Ao max P.4 mmHg Ao V2 max: 145.1 cm/sec Mitral Valve MV max P.2 mmHg MV V2 max: 114.0 cm/sec MV mean P.82 mmHg MV V2 mean: 61.5 cm/sec MV V2 VTI: 24.6 cm Tricuspid Valve TR max P.1 mmHg TR max erasmo: 346.9 cm/sec TV max P.1 mmHg Aorta Ao root diam: 3.4 cm MMode/2D Measurements & Calculations Ao root diam: 3.4 cm BMI: 27.3 kilograms/m² [facility] 1.74 m² ESV(sp4-el): 50.5 ml IVSd: 1.11 cm LA A4C-A/L: 19.2 cm² LA dimension: 6.0 cm LA ESV-A/L: 50.1 ml LA Vol Index: 34.0 ml/m² LAV(MOD-sp2): 38.0 ml LAV(MOD-sp4): 37.7 ml LVIDd: 4.1 cm LVIDs: 2.9 cm LVOT diam: 1.83 cm LVPWd: 0.93 cm RA A4Cs: 16.5 cm² TAPSE: 2.7 cm Doppler Measurements & Calculations Ao max P.4 mmHg Ao mean P.2 mmHg Ao V2 max: 145.1 cm/sec Ao V2 mean: 109.6 cm/sec Ao V2 VTI: 34.8 cm Lat E/e': 7.1 LV V1 max: 88.4 cm/sec LV V1 max P.1 mmHg LV V1 mean: 63.2 cm/sec LV V1 mean P.77 mmHg LV V1 VTI: 21.8 cm Med E/e': 11.2 MV A max erasmo: 104.2 cm/sec MV dec time: 0.24 sec MV DVI-pr: 0.78 MV E max erasmo: 80.9 cm/sec MV max P.2 mmHg MV mean P.82 mmHg MV V2 max: 114.0 cm/sec MV V2 mean: 61.5 cm/sec MV V2 VTI: 24.6 cm PA max P.47 mmHg PA V2 max: 78.5 cm/sec RV S Erasmo: 17.4 cm/sec TR max P.1 mmHg TR max erasmo: 346.9 cm/sec TV max P.1 mmHg Other Measurements & Calculations Ao root area: 8.9 cm² ANA(I,D): 1.65 cm² ANA(V,D): 1.61 cm² EDV(Teich): 74.9 ml EF(sp-el): 50.0 % EF(Teich): 55.7 % ESV(Teich): 33.2 ml FS: 28.7 % LVOT area: 2.6 cm² MV E/A: 0.78 MVA(VTI): 2.34 cm² SV(LVOT): 57.6 ml MD Tara Alcantar 01/08/2025, 3: 00 PM Ordering Physician: Radha Teran Referring Physician: Zeny Nix Performed By: [facility]
--- NOTE | 2025-01-08 15:53 | PROVIDER PROGRESS NOTE ---
Subjective Prog Note Date Prog Note Date: 01/08/25 Current Medications Current Medications Current Medications: Current Medications Generic Name Dose Route Start Last Admin Trade Name Freq PRN Reason Stop Dose Admin Acetaminophen 650 mg 01/07/25 22:24 Acetaminophen 325 Mg Tablet PO Q4HR PRN Pain 1 to 4, or Fever Calcium Carbonate/Glycine 500 mg 01/08/25 21:00 Calcium Carbonate Chew 500 Mg Tablet PO BID [facility] Cholecalciferol 200 unit 01/09/25 09:00 Cholecalciferol 400 Unit Tablet PO DAILY [facility] Tranexamic Acid 1,000 mg in 100 mls @ 600 mls/hr 01/08/25 10:08 Tranexamic 1,000 Mg/100ml-Nacl IV PRN PRN PER PHYSICIAN ORDER Insulin Human Regular 1 - 5 unit 01/08/25 00:00 01/08/25 14:01 Insulin Regular, Human 300 Unit/3 Ml Pen SUBQ Not Given Q6HR [facility] Protocol Metoprolol Succinate 25 mg 01/07/25 22:24 01/07/25 22:43 Metoprolol Succinate 25 Mg Tablet PO 25 mg HS [facility] Administration Morphine Sulfate 2 mg 01/07/25 22:24 Morphine 2 Mg/Ml Carpuject IVP Q2HR PRN Pain 8 to 10 Ondansetron HCl 4 mg 01/07/25 22:24 Ondansetron 4 Mg/2 Ml Vial IVP Q6HR PRN Nausea / Vomiting Oxycodone HCl 5 mg 01/07/25 22:24 01/08/25 08:23 Oxycodone 5 Mg Tablet PO 5 mg Q4HR PRN Administration Pain 5 to 7 Pantoprazole Sodium 40 mg 01/08/25 07:00 01/08/25 06:54 Pantoprazole 40 Mg Tablet PO 40 mg QDAC MARY Administration Paroxetine HCl 40 mg 01/08/25 09:00 01/08/25 08:22 Paroxetine 10 Mg Tablet PO 40 mg DAILY AMRY Administration Sodium Chloride 10 ml 01/07/25 22:24 Sodium Chloride Flush 0.9% 10 Ml Syringe IVP PRN PRN NEEDED PER PROVIDER ORDERS Sodium Chloride 10 ml 01/08/25 01:00 01/08/25 08:30 Sodium Chloride Flush 0.9% 10 Ml Syringe IVP 10 ml 0100,0900,1700 MARY Administration Objective Vital Signs/Intake & Output Reviewed Vital Signs: Yes Vital Signs: Vital Signs x48h Temp Pulse Pulse Resp BP BP Pulse Ox 01/08/25 13:57 36.4 C L 93 16 160/82 H 93 01/08/25 13:40 36.5 C 77 20 161/75 H 95 01/08/25 13:35 36.8 C 77 20 162/81 H 100 01/08/25 13:25 36.5 C 79 20 174/87 H 100 01/08/25 13:15 36.7 C 74 20 174/82 H 100 01/08/25 13:10 36.5 C 75 26 H 161/81 H 100 01/08/25 13:05 36.5 C 78 18 172/72 H 100 01/08/25 13:03 36.5 C 75 16 169/74 H 100 01/08/25 12:58 36.6 C 79 18 137/69 H 98 Intake & Output: Intake & Output 01/05/25 01/06/25 01/07/25 01/08/25 23:59 23:59 23:59 23:59 Intake Total 120 / 120 1577 / 1577 Output Total 600 / 600 Balance 120 / 120 977 / 977 Weight (kg) 70.5 kg Objective General Appearance: positive No acute distress and Alert ENT: positive ENT inspection nml Neck: positive Nml inspection Respiratory: positive No respiratory distress and Breath sounds nml Cardiovascular: positive Regular rate & rhythm Skin: positive Color nml Extremities: positive Non-tender and Other (operative dressing clean and dry) Neurologic/Psychiatric: positive Oriented x3 Lab Results 01/08/25 05:39 01/08/25 05:39 Other Labs: Lab Results x24hrs 01/08/25 01/08/25 01/08/25 Range/Units 07:34 05:51 05:39 WBC 7.7 (4.8-10.8) x10^3/uL RBC 3.54 L (4.20-5.40) 10^6/uL Hgb 10.4 L (12.0-16.0) g/dL Hct 32.6 L (37.0-47.0) % MCV 92.1 (81.0-99.0) fL MCH 29.4 (27.0-31.0) pg MCHC 31.9 L (32.0-36.0) g/dL RDW 16.6 H (12.0-15.0) % Plt Count 244 (130-450) 10^3/uL MPV 9.3 (7.9-10.8) fL Neut # (Auto) 5.9 (1.5-6.6) 10^3/uL Lymph # (Auto) 0.7 L (1.5-3.5) 10^3/uL Hill # (Auto) 0.9 (0.0-1.0) 10^3/uL Eos # (Auto) 0.1 (0.0-0.7) 10^3/uL Baso # (Auto) 0.1 (0.0-0.1) 10^3/uL Absolute Nucleated RBC 0.00 x10^3/uL Nucleated RBC % 0.0 /100WBC Sodium 137 (135-145) mmol/L Potassium 4.0 (3.5-4.5) mmol/L Chloride 106 (101-111) mmol/L Carbon Dioxide 24 (21-32) mmol/L Anion Gap 7.0 (6-13) BUN 15 (6-20) mg/dL Creatinine 1.1 (0.6-1.3) mg/dL Estimated GFR (MDRD) 47 L (>89) Glucose 121 H (74-104) mg/dL POC Whole Bld Glucose 117 125 (70-100) mg/dL Estimat Average Glucose 111 H (70-100) mg/dL Hemoglobin A1c % 5.5 (4.27-6.07) % Calcium 8.8 (8.5-10.3) mg/dL Urine Color Urine Clarity (CLEAR) Urine pH (5.0-7.5) PH Ur Specific Tinnie (1.002-1.030) Urine Protein (NEGATIVE) mg/dL Urine Glucose (UA) (NEGATIVE) mg/dL Urine Ketones (NEGATIVE) mg/dL Urine Occult Blood (NEGATIVE) Urine Nitrite (NEGATIVE) Urine Bilirubin (NEGATIVE) Urine Urobilinogen (NORMAL) E.U./dL Ur Leukocyte Esterase (NEGATIVE) Urine RBC (0-5) /HPF Urine WBC (0-5) /HPF Ur Squamous Epith Cells (<= Few) Urine Bacteria (None Seen) /HPF Urine Culture Comments 01/08/25 01/08/25 Range/Units 03:07 01:00 WBC (4.8-10.8) x10^3/uL RBC (4.20-5.40) 10^6/uL Hgb (12.0-16.0) g/dL Hct (37.0-47.0) % MCV (81.0-99.0) fL MCH (27.0-31.0) pg MCHC (32.0-36.0) g/dL RDW (12.0-15.0) % Plt Count (130-450) 10^3/uL MPV (7.9-10.8) fL Neut # (Auto) (1.5-6.6) 10^3/uL Lymph # (Auto) (1.5-3.5) 10^3/uL Hill # (Auto) (0.0-1.0) 10^3/uL Eos # (Auto) (0.0-0.7) 10^3/uL Baso # (Auto) (0.0-0.1) 10^3/uL Absolute Nucleated RBC x10^3/uL Nucleated RBC % /100WBC Sodium (135-145) mmol/L Potassium (3.5-4.5) mmol/L Chloride (101-111) mmol/L Carbon Dioxide (21-32) mmol/L Anion Gap (6-13) BUN (6-20) mg/dL Creatinine (0.6-1.3) mg/dL Estimated GFR (MDRD) (>89) Glucose (74-104) mg/dL POC Whole Bld Glucose 135 (70-100) mg/dL Estimat Average Glucose (70-100) mg/dL Hemoglobin A1c % (4.27-6.07) % Calcium (8.5-10.3) mg/dL Urine Color YELLOW Urine Clarity HAZY (CLEAR) Urine pH 6.0 (5.0-7.5) PH Ur Specific Tinnie >=1.030 H (1.002-1.030) Urine Protein TRACE (NEGATIVE) mg/dL Urine Glucose (UA) NEGATIVE (NEGATIVE) mg/dL Urine Ketones 40 H (NEGATIVE) mg/dL Urine Occult Blood SMALL (NEGATIVE) Urine Nitrite NEGATIVE (NEGATIVE) Urine Bilirubin NEGATIVE (NEGATIVE) Urine Urobilinogen 0.2 (NORMAL) (NORMAL) E.U./dL Ur Leukocyte Esterase TRACE H (NEGATIVE) Urine RBC 6-10 H (0-5) /HPF Urine WBC 6-10 H (0-5) /HPF Ur Squamous Epith Cells MANY Squamous H (<= Few) Urine Bacteria Few (None Seen) /HPF Urine Culture Comments NOT INDICATED Assessment/Plan Problem List (1) Fracture, intertrochanteric, right femur: Impression: POD #0 operative repair of right intertrochanteric femur fracture. She is doing well post op. she denies pain at this time. RN offered her to sit on EOB, and she refused. She will get up with RN tomorrow, or possibly yet this evening. She jesus weight bear with a walker. I have ordered CBC in the AM to assess for post operative anemia. I have started the patient on Calcium and Vit D for fracture healing She will have assessment by PT as soon as therapy is available at the facility (POD #2). anticipate that she will require SNF placement, as this was the plan after her fracture in Fe of this year, and she did well with this. (2) Edema: Impression: Progressive edema for several months. on echo she has a normal ejection fraction with restrictive filling pattern of the left ventricle and marked elevation of left ventricular filling pressures. consistent with cardiomyopathy. should have further evaluation in the outpatient setting. (3) Insomnia: Impression: I am continuing to discourage her use of ambien for chronic insomnia. She has done well here without it thus far. (4) Hypertension, essential, benign: Impression: I am monitoring her blood pressures and am continuing home metroprolol. Hrt vital signs have been appopriate. (5) Hyperglycemia: Impression: This patient does not have diabetes. There was some mention of this, but her Hgb A1C in in non diabetic range. We will monitor blood glucose for the recommended post op goal of less than 180, SSI if needed. Laboratory Tests 01/08/25 01/08/25 01/08/25 01:00 05:39 05:51 POC Whole Bld Glucose 135 125 Hemoglobin A1c % 5.5 01/08/25 01/08/25 07:34 16:50 POC Whole Bld Glucose 117 162 Hemoglobin A1c % This patient's diagnosis and treatment plan was discussed this AM with attending physician as a part of multi disciplinary rounding meeting. I have spent 38 minutes in the care of this patient today. This includes time [id number], review and ordering of diagnostic imaging and laboratory studies and consultation with other providers. Monitoring the patient's signs symptoms, evaluation of medication effectiveness and patient's response to treatment.
--- NOTE | 2025-01-08 16:29 | XRAY Report ---
PROCEDURE: FL OR C-Arm Procedure INDICATIONS: right hip fx FLUORO TIME: 1.4 TECHNIQUE: Intraoperative fluoroscopic films obtained for a medical procedure. COMPARISON: Pelvis radiograph 01/07/2025. FINDINGS/IMPRESSION: Intraoperative fluoroscopic films obtained for right proximal femoral fracture fixation. Please see operative note. Reviewed by: Davion Montana MD on 01/08/2025 4:27 PM PDT Approved by: Davion Montana MD on 01/08/2025 4:27 PM PDT Station ID: [id number]
--- NOTE | 2025-01-08 17:06 | PHARMACY PROGRESS NOTE ---
Best Possible Medication History Admit Date and Time: 01/07/252101 Home Medications Medication Instructions Recorded Confirmed Type cyclobenzaprine 5 mg tablet 5 mg PO DAILY PRN muscle s pasm 03/27/24 01/08/25 History furosemide 20 mg tablet 20 mg PO QAM PRN edema #90 t abs 10/21/24 01/08/25 Rx metoprolol succinate 25 mg 25 mg PO HS #90 tabs 01/08/25 Rx tablet,extended release 24 hr pantoprazole 40 mg tablet,delayed 40 mg PO QDAC #90 ta bs 10/21/24 01/08/25 Rx release paroxetine HCl 40 mg tablet 40 mg PO DAILY 01/08/25 History rosuvastatin 10 mg tablet 10 mg PO DAILY 01/08/2512/19 History zolpidem 10 mg tablet 10 mg PO HS 01/08/25 5 History Processed by: Pharmacy (Medication reconciliation completed by Photogrammetric EngineerAdolph) Medications reviewed in ED?: No Medication History completed: Yes Patient Interview: Completed Secondary Source(s): Insurance records [facility] Statement: As the person ultimately responsible for medication therapy, providers are able to order a medication from an existing home medication list in [facility] via the "Reconcile Routine" prior to Confirmation of that medication by lan support specialist. Such practice is discouraged except when the physician, in their clinical judgment, deems that a medical need exists for a medication without regard to previous use.
[2025-01-08] MEDS: INSULIN LISPRO 300 UNIT/3 ML PEN SUBQ SCH (17:41)
[2025-01-08] MEDS: CALCIUM CARBONATE CHEW 500 MG TABLET PO SCH (21:46)
[2025-01-09] MEDS: ACETAMINOPHEN 325 MG TABLET PO PRN (01:13)
[2025-01-09 05:53] LABS: HCT - HEMATOCRIT 29.1 % (37.0-47.0); HGB - HEMOGLOBIN 9.0 g/dL (12.0-16.0); MEAN PLATELET VOLUME 9.3 fL (7.9-10.8); NRBC ABSOLUTE COUNT (AUTO) 0.00 x10^3/uL; NUCLEATED RED BLOOD CELLS AUTO 0.0 /100WBC; PLT - PLATELET COUNT 247 10^3/uL (130-450); RED CELL DISTRIBUTION WIDTH 17.2 % (12.0-15.0)
[2025-01-09 06:21] LABS: BUN - BLOOD UREA NITROGEN 17.0 mg/dL (6-20); CARBON DIOXIDE - CO2 23.0 mmol/L (21-32); CREATININE 1.2 mg/dL (0.6-1.3); GFR - MDRD 43.0 (>89)
[2025-01-09] MEDS: CHOLECALCIFEROL 400 UNIT TABLET PO SCH (08:42)
--- NOTE | 2025-01-09 11:21 | PROVIDER PROGRESS NOTE ---
Subjective Prog Note Date Prog Note Date: 01/09/25 Subjective Subjective: She has more pain today than yesterday (when anesthesia was still working). She has gotten up to the chair. She has occasional hallucinations, but most of the time is able to re orient with gentle reminders from staff. Current Medications Current Medications Current Medications: Current Medications Generic Name Dose Route Start Last Admin Trade Name Bi PRN Reason Stop Dose Admin Acetaminophen 650 mg 01/07/25 22:24 01/09/25 09:44 Acetaminophen 325 Mg Tablet PO 650 mg Q4HR PRN Administration Pain 1 to 4, or Fever Calcium Carbonate/Glycine 500 mg 01/08/25 21:00 01/09/25 08:42 Calcium Carbonate Chew 500 Mg Tablet PO 500 mg BID MARY Administration Cholecalciferol 200 unit 01/09/25 09:00 01/09/25 08:42 Cholecalciferol 400 Unit Tablet PO 200 unit DAILY MARY Administration Tranexamic Acid 1,000 mg in 100 mls @ 600 mls/hr 01/08/25 10:08 Tranexamic 1,000 Mg/100ml-Nacl IV PRN PRN PER PHYSICIAN ORDER Metoprolol Succinate 25 mg 01/07/25 22:24 01/08/25 21:46 Metoprolol Succinate 25 Mg Tablet PO 25 mg HS MARY Administration Morphine Sulfate 2 mg 01/07/25 22:24 Morphine 2 Mg/Ml Carpuject IVP Q2HR PRN Pain 8 to 10 Ondansetron HCl 4 mg 01/07/25 22:24 Ondansetron 4 Mg/2 Ml Vial IVP Q6HR PRN Nausea / Vomiting Oxycodone HCl 5 mg 01/07/25 22:24 01/09/25 01:13 Oxycodone 5 Mg Tablet PO 5 mg Q4HR PRN Administration Pain 5 to 7 Pantoprazole Sodium 40 mg 01/08/25 07:00 01/09/25 07:04 Pantoprazole 40 Mg Tablet PO 40 mg QDAC MARY Administration Paroxetine HCl 40 mg 01/08/25 09:00 01/09/25 08:42 Paroxetine 10 Mg Tablet PO 40 mg DAILY MARY Administration Sodium Chloride 10 ml 01/07/25 22:24 Sodium Chloride Flush 0.9% 10 Ml Syringe IVP PRN PRN NEEDED PER PROVIDER ORDERS Sodium Chloride 10 ml 01/08/25 01:00 01/09/25 08:43 Sodium Chloride Flush 0.9% 10 Ml Syringe IVP 10 ml 0100,0900,1700 MARY Administration Objective Vital Signs/Intake & Output Reviewed Vital Signs: Yes Vital Signs: Vital Signs x48h Temp Pulse Resp BP Pulse Ox 01/09/25 05:35 36.7 C 81 16 131/68 H 92 Intake & Output: Intake & Output 01/06/25 01/07/25 01/08/25 01/09/25 23:59 23:59 23:59 23:59 Intake Total 120 / 120 2827 / 2827 240 / 240 Output Total 1050 / 1050 300 / 300 Balance 120 / 120 1777 / 1777 -60 / -60 Weight (kg) 70.5 kg Objective General Appearance: positive No acute distress and Alert ENT: positive ENT inspection nml Neck: positive Nml inspection Respiratory: positive No respiratory distress and Breath sounds nml Cardiovascular: positive Regular rate & rhythm Abdomen: positive No distention Skin: positive Color nml Extremities: positive Non-tender and Other (operative dressing clean and dry) Neurologic/Psychiatric: positive Oriented x3 Lab Results 01/09/25 05:44 01/09/25 05:44 Other Labs: Lab Results x24hrs 01/09/25 01/09/25 01/08/25 Range/Units 07:58 05:44 20:51 WBC 10.2 (4.8-10.8) x10^3/uL RBC 3.11 L (4.20-5.40) 10^6/uL Hgb 9.0 L (12.0-16.0) g/dL Hct 29.1 L (37.0-47.0) % MCV 93.6 (81.0-99.0) fL MCH 28.9 (27.0-31.0) pg MCHC 30.9 L (32.0-36.0) g/dL RDW 17.2 H (12.0-15.0) % Plt Count 247 (130-450) 10^3/uL MPV 9.3 (7.9-10.8) fL Neut # (Auto) 8.4 H (1.5-6.6) 10^3/uL Lymph # (Auto) 0.6 L (1.5-3.5) 10^3/uL [place] # (Auto) 1.2 H (0.0-1.0) 10^3/uL Eos # (Auto) 0.0 (0.0-0.7) 10^3/uL Baso # (Auto) 0.0 (0.0-0.1) 10^3/uL Absolute Nucleated RBC 0.00 x10^3/uL Nucleated RBC % 0.0 /100WBC Sodium 137 (135-145) mmol/L Potassium 4.3 (3.5-4.5) mmol/L Chloride 108 (101-111) mmol/L Carbon Dioxide 23 (21-32) mmol/L Anion Gap 6.0 (6-13) BUN 17 (6-20) mg/dL Creatinine 1.2 (0.6-1.3) mg/dL Estimated GFR (MDRD) 43 L (>89) Glucose 156 H (74-104) mg/dL POC Whole Bld Glucose 138 178 (70-100) mg/dL Estimat Average Glucose (70-100) mg/dL Hemoglobin A1c % (4.27-6.07) % Calcium 8.9 (8.5-10.3) mg/dL 01/08/25 01/08/25 Range/Units 16:50 05:39 WBC (4.8-10.8) x10^3/uL RBC (4.20-5.40) 10^6/uL Hgb (12.0-16.0) g/dL Hct (37.0-47.0) % MCV (81.0-99.0) fL MCH (27.0-31.0) pg MCHC (32.0-36.0) g/dL RDW (12.0-15.0) % Plt Count (130-450) 10^3/uL MPV (7.9-10.8) fL Neut # (Auto) (1.5-6.6) 10^3/uL Lymph # (Auto) (1.5-3.5) 10^3/uL [place] # (Auto) (0.0-1.0) 10^3/uL Eos # (Auto) (0.0-0.7) 10^3/uL Baso # (Auto) (0.0-0.1) 10^3/uL Absolute Nucleated RBC x10^3/uL Nucleated RBC % /100WBC Sodium (135-145) mmol/L Potassium (3.5-4.5) mmol/L Chloride (101-111) mmol/L Carbon Dioxide (21-32) mmol/L Anion Gap (6-13) BUN (6-20) mg/dL Creatinine (0.6-1.3) mg/dL Estimated GFR (MDRD) (>89) Glucose (74-104) mg/dL POC Whole Bld Glucose 162 (70-100) mg/dL Estimat Average Glucose 111 H (70-100) mg/dL Hemoglobin A1c % 5.5 (4.27-6.07) % Calcium (8.5-10.3) mg/dL Assessment/Plan Problem List (1) Fracture, intertrochanteric, right femur: Impression: POD #1 operative repair of right intertrochanteric femur fracture. She is doing well post op. She has pain, but denies need for additonal meds. She has gotten out of bed to chair today . I will use Lovenox 40mg daily until dc then ASA 81MG daily until she has completed 4 weeks of tx. 2-3 week wound check and XRs in ortho clinic. I have started the patient on Calcium and Vit D for fracture healing She will have assessment by PT as soon as therapy is available at the facility (POD #2). anticipate that she will require SNF placement, as this was the plan after her fracture in Jun of this year, and she did well with this. (2) Postoperative anemia: Impression: She was diagnosed w Fe def. after her surgery in Jun of this year. I will start iron and add iron studies in the AM to determine her current degree of deficiency. Laboratory Tests 01/08/25 01/09/25 05:39 05:44 Hgb 10.4 L 9.0 L 07/19/24 15:53 Iron 29 L TIBC 249 L % Saturation 12 L Transferrin 178 L (3) Edema: Impression: Progressive edema for several months. on echo she has a normal ejection fraction with restrictive filling pattern of the left ventricle and marked elevation of left ventricular filling pressures. consistent with cardiomyopathy. should have further evaluation in the outpatient setting. (4) Insomnia: Impression: I am continuing to discourage her use of ambien for chronic insomnia. She has done well here without it thus far. (5) Hypertension, essential, benign: Impression: I am monitoring her blood pressures and am continuing home metroprolol. Hrt vital signs have been appopriate w the exception of an isolated reading of 94/60 this afternoon. Will continue to monitor. hold parameters on metoprolol (6) Hyperglycemia: Impression: This patient does not have diabetes. There was some mention of this, but her Hgb A1C in in non diabetic range. I have stopped sliding scale insulin and blood sugar checks. Laboratory Tests 01/08/25 01/08/25 01/08/25 01:00 05:39 05:51 POC Whole Bld Glucose 135 125 Hemoglobin A1c % 5.5 01/08/25 01/08/25 07:34 16:50 POC Whole Bld Glucose 117 162 Hemoglobin A1c % This patient's diagnosis and treatment plan was discussed this AM with attending physician as a part of multi disciplinary rounding meeting. I have spent 38 minutes in the care of this patient today. This includes time [id number], review and ordering of diagnostic imaging and laboratory studies. Monitoring the patient's signs symptoms, evaluation of medication effectiveness and patient's response to treatment.
[2025-01-09] MEDS: ENOXAPARIN 40 MG/0.4 ML SYRINGE SUBQ SCH (18:14)
[2025-01-10] MEDS: MORPHINE 2 MG/ML CARPUJECT IVP PRN (03:24)
[2025-01-10 06:02] LABS: HCT - HEMATOCRIT 29.1 % (37.0-47.0); HGB - HEMOGLOBIN 8.9 g/dL (12.0-16.0); MEAN PLATELET VOLUME 9.9 fL (7.9-10.8); NRBC ABSOLUTE COUNT (AUTO) 0.00 x10^3/uL; NUCLEATED RED BLOOD CELLS AUTO 0.0 /100WBC; PLT - PLATELET COUNT 270 10^3/uL (130-450); RED CELL DISTRIBUTION WIDTH 17.6 % (12.0-15.0)
[2025-01-10 06:21] LABS: % IRON SATURATION 11.0 % (20-50); BUN - BLOOD UREA NITROGEN 22.0 mg/dL (6-20); CARBON DIOXIDE - CO2 23.0 mmol/L (21-32); CREATININE 1.2 mg/dL (0.6-1.3); GFR - MDRD 43.0 (>89)
[2025-01-10] MEDS ORDERED: OLANZapine 10 MG VIAL IM ONE (06:57)
[2025-01-10] MEDS: OLANZapine 10 MG VIAL IM ONE (07:02)
[2025-01-10] MEDS: FERROUS SULFATE 325 MG TABLET PO SCH (09:08)
--- NOTE | 2025-01-10 13:11 | PROVIDER PROGRESS NOTE ---
Subjective Prog Note Date Prog Note Date: 01/10/25 Subjective Subjective: She became confused and combative overnight and ultimately required IM olanzepine to prevent injury to herself or others. She then has slept most of the morning. At the time of admssion, she told me that hydromorphone has caused this in the past for her. Today, she is telling me this behaviour is a result of oxycodone. It would seem that she has problems with delirium, that get worse when she is in the hospital. This afternoon, she is apologetic about what happened. She expresses regret, and she does not want this to happen again. Current Medications Current Medications Current Medications: Current Medications Generic Name Dose Route Start Last Admin Trade Name Freq PRN Reason Stop Dose Admin Acetaminophen 650 mg 01/07/25 22:24 01/10/25 03:25 Acetaminophen 325 Mg Tablet PO 650 mg Q4HR PRN Administration Pain 1 to 4, or Fever Calcium Carbonate/Glycine 500 mg 01/08/25 21:00 01/10/25 09:09 Calcium Carbonate Chew 500 Mg Tablet PO 500 mg BID MARY Administration Cholecalciferol 200 unit 01/09/25 09:00 01/10/25 09:08 Cholecalciferol 400 Unit Tablet PO 200 unit DAILY MARY Administration Enoxaparin Sodium 40 mg 01/09/25 17:09 01/10/25 09:09 Enoxaparin 40 Mg/0.4 Ml Syringe SUBQ 40 mg DAILY MARY Administration Ferrous Sulfate 325 mg 01/10/25 08:00 01/10/25 09:08 Ferrous Sulfate 325 Mg Tablet PO 325 mg DAILYWM MARY Administration Tranexamic Acid 1,000 mg in 100 mls @ 600 mls/hr 01/08/25 10:08 Tranexamic 1,000 Mg/100ml-Nacl IV PRN PRN PER PHYSICIAN ORDER Metoprolol Succinate 25 mg 01/07/25 22:24 01/09/25 22:30 Metoprolol Succinate 25 Mg Tablet PO 25 mg HS MARY Administration Morphine Sulfate 2 mg 01/07/25 22:24 01/10/25 03:24 Morphine 2 Mg/Ml Carpuject IVP 2 mg Q2HR PRN Administration Pain 8 to 10 Ondansetron HCl 4 mg 01/07/25 22:24 Ondansetron 4 Mg/2 Ml Vial IVP Q6HR PRN Nausea / Vomiting Oxycodone HCl 5 mg 01/07/25 22:24 01/09/25 22:55 Oxycodone 5 Mg Tablet PO 5 mg Q4HR PRN Administration Pain 5 to 7 Pantoprazole Sodium 40 mg 01/08/25 07:00 01/10/25 06:33 Pantoprazole 40 Mg Tablet PO Not Given QDAC MARY Paroxetine HCl 40 mg 01/08/25 09:00 01/10/25 09:09 Paroxetine 10 Mg Tablet PO 40 mg DAILY MARY Administration Sodium Chloride 10 ml 01/07/25 22:24 Sodium Chloride Flush 0.9% 10 Ml Syringe IVP PRN PRN NEEDED PER PROVIDER ORDERS Sodium Chloride 10 ml 01/08/25 01:00 01/10/25 09:09 Sodium Chloride Flush 0.9% 10 Ml Syringe IVP 10 ml 0100,0900,1700 MARY Administration Objective Vital Signs/Intake & Output Reviewed Vital Signs: Yes Vital Signs: Vital Signs x48h Temp Pulse Resp BP Pulse Ox 01/09/25 05:35 36.7 C 81 16 131/68 H 92 Intake & Output: Intake & Output 01/07/25 01/08/25 01/09/25 01/10/25 23:59 23:59 23:59 23:59 Intake Total 120 / 120 2827 / 2827 1590 / 1590 100 / 100 Output Total 1050 / 1050 700 / 700 200 / 200 Balance 120 / 120 1777 / 1777 890 / 890 -100 / -100 Weight (kg) 70.5 kg Objective General Appearance: positive No acute distress and Alert Eyes Bilateral: positive Normal inspection ENT: positive ENT inspection nml Neck: positive Nml inspection Respiratory: positive No respiratory distress and Breath sounds nml Cardiovascular: positive Regular rate & rhythm Abdomen: positive No distention Skin: positive Color nml Extremities: positive Non-tender and Other (operative dressing clean and dry) Neurologic/Psychiatric: positive Oriented x3 Lab Results 01/10/25 05:00 01/10/25 05:00 Other Labs: Lab Results x24hrs 01/10/25 Range/Units 05:00 WBC 9.6 (4.8-10.8) x10^3/uL RBC 3.10 L (4.20-5.40) 10^6/uL Hgb 8.9 L (12.0-16.0) g/dL Hct 29.1 L (37.0-47.0) % MCV 93.9 (81.0-99.0) fL MCH 28.7 (27.0-31.0) pg MCHC 30.6 L (32.0-36.0) g/dL RDW 17.6 H (12.0-15.0) % Plt Count 270 (130-450) 10^3/uL MPV 9.9 (7.9-10.8) fL Neut # (Auto) 6.9 H (1.5-6.6) 10^3/uL Lymph # (Auto) 1.2 L (1.5-3.5) 10^3/uL [place] # (Auto) 1.2 H (0.0-1.0) 10^3/uL Eos # (Auto) 0.2 (0.0-0.7) 10^3/uL Baso # (Auto) 0.1 (0.0-0.1) 10^3/uL Absolute Nucleated RBC 0.00 x10^3/uL Nucleated RBC % 0.0 /100WBC Sodium 136 (135-145) mmol/L Potassium 4.0 (3.5-4.5) mmol/L Chloride 106 (101-111) mmol/L Carbon Dioxide 23 (21-32) mmol/L Anion Gap 7.0 (6-13) BUN 22 H (6-20) mg/dL Creatinine 1.2 (0.6-1.3) mg/dL Estimated GFR (MDRD) 43 L (>89) Glucose 130 H (74-104) mg/dL Calcium 9.0 (8.5-10.3) mg/dL Iron 25 L (50-212) ug/dL TIBC 232 L (250-450) ug/dL % Saturation 11 L (20-50) % Transferrin 166 L (203-362) mg/dL Vitamin B12 162 L (180-914) pg/mL Folate 6.9 (5.90 - >24.8) ng/mL Assessment/Plan Problem List (1) Fracture, intertrochanteric, right femur: Impression: POD #2 operative repair of right intertrochanteric femur fracture. She is doing well post op. She has pain, but denies need for additonal meds. She will be seen by PT today. She is sleepy eariler in the day due to her delirium overnight, and will have an afternoon evaluation. anticipate that she will require SNF placement, as this was the plan after her fracture in Jun of this year, and she did well with this. I will use Lovenox 40mg daily until dc then ASA 81MG daily until she has completed 4 weeks of tx. 2-3 week wound check and XRs in ortho clinic. I have started the patient on Calcium and Vit D for fracture healing I called patient's son to give him an update today, and his phone went straight to [employer]. (2) Postoperative anemia: Impression: She was diagnosed w Fe def. after her surgery in Jun of this year. She is iron deficient currently. her Hgb has not dropped further post op. I will continue oral iron tx. 01/08/25 01/09/25 05:39 05:44 Hgb 10.4 L 9.0 L 07/19/24 15:53 Iron 29 L TIBC 249 L % Saturation 12 L Transferrin 178 L 01/10/25 05:00 Iron 25 L TIBC 232 L % Saturation 11 L Transferrin 166 L Vitamin B12 162 L (3) Delirium: Impression: She became extremely agitated overnight. She had has some intermittent confusion at her last admission for repair of hip fracture. We have kept her on her home meds, including Paxil, from the time of admit, with the exception of Ambien. Looking at the PDMP, she is not getting enough ambien to use it nightly. Her agitation resolved with olanzepine. She is sleepy now, but just after lunch, she awakens, oriented only to self, and when I question her again at the end of the interview, she forgets time orientation, but remembers that she is in the hospital after a hip fracture. (4) Edema: Impression: Progressive edema for several months. on echo she has a normal ejection fraction with restrictive filling pattern of the left ventricle and marked elevation of left ventricular filling pressures. consistent with cardiomyopathy. should have further evaluation in the outpatient setting. (5) Insomnia: Impression: I am continuing to discourage her use of ambien for chronic insomnia. She had confusion overnight. (6) Hypertension, essential, benign: Impression: I am monitoring her blood pressures and am continuing home metroprolol. (7) Kidney stone on right side: Impression: discussed with Dr Hernandez, procedure scheduled for tomorrow, but he does not want to put patient in lithotomy position this soon post fracture repair. he will reschedule his procedure. I called son to let him know, phone straight to voicemail. (8) Hyperglycemia: Impression: This patient does not have diabetes. There was some mention of this, but her Hgb A1C in in non diabetic range. I have stopped sliding scale insulin and blood sugar checks. Laboratory Tests 01/08/25 01/08/25 01/08/25 01:00 05:39 05:51 POC Whole Bld Glucose 135 125 Hemoglobin A1c % 5.5 01/08/25 01/08/25 07:34 16:50 POC Whole Bld Glucose 117 162 Hemoglobin A1c % This patient's diagnosis and treatment plan was discussed this AM with attending physician as a part of multi disciplinary rounding meeting. I have spent 40 minutes in the care of this patient today. This includes time [id number], review and ordering of diagnostic imaging and laboratory studies. Monitoring the patient's signs symptoms, evaluation of medication effectiveness and patient's response to treatment.
--- NOTE | 2025-01-10 13:14 | POST OP PROGRESS NOTE ---
Subjective General Admit Date: 01/07/25 Procedure Date: 07/17/24 Post Op Days: 177 Other Other Information/Narrative: post op day 2 from right cephalomedullary nail for intertrochanteric femur fracture. overnight became confused and uncooperative. reports she is sleepy this morning. notes soreness in the R hip. has not worked with PT yet. Ortho Surgical Progress Note Problem List Problem List: right intertrochanteric femure fracture s/p surgical stabilization on 01/08/25. stable, dressing CDI. 0 Weight bearing as tolerated with walker, PT eval and treatment DVT prophyhlaxis x 4 weeks postop follow up ortho clinic approximately 2-3 weeks dressing changes as needed. dispo per hospitalist team, pending PT eval. Review of Systems Status of ROS: 10 or more systems reviewed and unremarkable except as noted in history and below Exam Exam Alert and oriented x 3. Cooperative with exam Respiratory breathing comfortably on room air Examination of the right lower extremity. She is able to wiggle the toes and demonstrate ankle flexion and dorsiflexion. Foot is warm and well-perfused. dressing is clean dry and intact.
--- NOTE | 2025-01-10 17:23 | PT Plan of Care ---
PT Inpatient Plan of Care DIAGNOSIS Diagnosis: s/p R IM nail placement on 01/08/25 Referring Provider: Radha Teran Patient Status: Inpatient CHIEF COMPLAINT Chief Complaint: R hip/LE pain Onset of Chief Complaint: [employer]IC on 01/02/25 MEDICAL/SURGICAL HISTORY Medical History (Updated 01/10/25 @ 13:08 by KATHRYN Hollingsworth) UTI (urinary tract infection) Kidney stone on right side Surgical History (Updated 01/08/25 @ 08:42 by Ilene Torres CRNA) Hx of left mastectomy History of cholecystectomy History of section History of hip surgery left hip nailing History of carpal tunnel release of both wrists History of lithotripsy cysto, ureteroscopy, stent exchange, bladder stone removal BALANCE/FUNCTIONAL RESULTS Sitting Balance: Good Standing Balance: Poor [place] Balance Test Interpretation: High Fall Risk [place] Assessment Interpretation: High Fall Risk ASSESSMENT Assessment: The pt is an 84 y/o F who arrived to the ED on 01/02/25 after a GLF at home resulting in a R intertrochanteric fx, she is now s/p IM nail placement by Dr Vides on 01/08/25 and is 50% wt bearing to R LE. Please see chart for complete medical hx. The pt was received resting comfortably supine in bed and presented today with decreased B UE and LE strength, decreased activity tolerance, poor balance, and increased R LE pain as expected for this phase of her post-op recovery. Her tolerance with functional mobility is limited from her baseline level of Sammy with 4WW and will benefit from continued skilled PT to increased her level of functional independence. At this time recommend continued skilled PT intervention while in the acute setting and DC to SNF for further rehab once pt medically stable. This plan was discussed with the pt and she was in agreement with this. At the end of the session the pt was sitting up in a chair with call light in reach, chair alarm in place and on, and all needs met. RN and PA updated on pt's status and DC rec. PATIENT/FAMILY GOALS Patient/Family Goals: To be strong enough to return home and to stop falling GOALS Improve supine to sit to:: Modified Independent Improve sit to stand to:: Modified Independent Improve pivot transfer ability to:: Modified Independent Improve sit to supine to:: Modified Independent Improve gait ability to:: Mod A Advance Assistive Device to:: Front Wheeled Walker Increase distance walked to (in feet):: 10 PLAN Frequency: 1-2x/day Duration: Until discharge DISCHARGE RECOMMENDATIONS Discharge Location: [facility] Facility Other Discharge Equipment: pt owns all recommended DME Transport Needs at Discharge: [facility]
[2025-01-10] MEDS: ATORVASTATIN 10 MG TABLET PO SCH (20:21)
[2025-01-10] MEDS: HYDROcod/ACETAM 10 MG/325 MG TABLET PO PRN (21:25)
[2025-01-10] MEDS ORDERED: OLANZapine 10 MG VIAL IM PRN (21:52)
[2025-01-11 05:38] LABS: HCT - HEMATOCRIT 28.1 % (37.0-47.0); HGB - HEMOGLOBIN 8.7 g/dL (12.0-16.0); MEAN PLATELET VOLUME 9.5 fL (7.9-10.8); NRBC ABSOLUTE COUNT (AUTO) 0.00 x10^3/uL; NUCLEATED RED BLOOD CELLS AUTO 0.0 /100WBC; PLT - PLATELET COUNT 274 10^3/uL (130-450); RED CELL DISTRIBUTION WIDTH 17.5 % (12.0-15.0)
[2025-01-11 05:58] LABS: BUN - BLOOD UREA NITROGEN 20.0 mg/dL (6-20); CARBON DIOXIDE - CO2 26.0 mmol/L (21-32); CREATININE 1.1 mg/dL (0.6-1.3); GFR - MDRD 47.0 (>89)
--- NOTE | 2025-01-11 17:12 | PROVIDER PROGRESS NOTE ---
Subjective Prog Note Date Prog Note Date: 01/11/25 Subjective Subjective: Oriented to self and situation (I broke my hips) today. not time or location. per staff, continues to hallucinate. no family at bedside. her home caregiver, Josiane is here to visit today. Current Medications Current Medications Current Medications: Current Medications Generic Name Dose Route Start Last Admin Trade Name Freq PRN Reason Stop Dose Admin Acetaminophen 650 mg 01/07/25 22:24 01/10/25 03:25 Acetaminophen 325 Mg Tablet PO 650 mg Q4HR PRN Administration Pain 1 to 4, or Fever Hydrocodone Bitart/Acetaminophen 1 tab 01/10/25 16:24 01/11/25 14:26 Hydrocod/Acetam 10 Mg/325 Mg Tablet PO 1 tab Q4HR PRN Administration Moderate Pain (Level 4-6) Atorvastatin Calcium 20 mg 01/10/25 21:00 01/10/25 20:21 Atorvastatin 10 Mg Tablet PO 20 mg QPM MARY Administration Calcium Carbonate/Glycine 500 mg 01/08/25 21:00 01/11/25 08:19 Calcium Carbonate Chew 500 Mg Tablet PO 500 mg BID MARY Administration Cholecalciferol 25 mcg 01/12/25 09:00 Cholecalciferol 25 Mcg Tablet PO DAILY MARY Enoxaparin Sodium 40 mg 01/09/25 17:09 01/11/25 08:18 Enoxaparin 40 Mg/0.4 Ml Syringe SUBQ 40 mg DAILY MARY Administration Ferrous Sulfate 325 mg 01/10/25 08:00 01/11/25 08:18 Ferrous Sulfate 325 Mg Tablet PO 325 mg DAILYWM MARY Administration Tranexamic Acid 1,000 mg in 100 mls @ 600 mls/hr 01/08/25 10:08 Tranexamic 1,000 Mg/100ml-Nacl IV PRN PRN PER PHYSICIAN ORDER Metoprolol Succinate 25 mg 01/07/25 22:24 01/10/25 20:21 Metoprolol Succinate 25 Mg Tablet PO 25 mg HS MARY Administration Morphine Sulfate 2 mg 01/07/25 22:24 01/10/25 03:24 Morphine 2 Mg/Ml Carpuject IVP 2 mg Q2HR PRN Administration Pain 8 to 10 Olanzapine 5 mg 01/10/25 21:00 01/11/25 08:19 Olanzapine Odt 5 Mg Tablet TL 5 mg DAILY MARY Administration Olanzapine 5 mg 01/10/25 21:52 Olanzapine Odt 5 Mg Tablet TL 01/11/25 21:51 DAILY PRN Agitation Olanzapine 5 mg 01/10/25 21:52 Olanzapine 10 Mg Vial IM 01/11/25 21:51 ONCE PRN Agitation Ondansetron HCl 4 mg 01/07/25 22:24 Ondansetron 4 Mg/2 Ml Vial IVP Q6HR PRN Nausea / Vomiting Pantoprazole Sodium 40 mg 01/08/25 07:00 01/11/25 06:13 Pantoprazole 40 Mg Tablet PO 40 mg QDAC MARY Administration Paroxetine HCl 40 mg 01/08/25 09:00 01/11/25 08:18 Paroxetine 10 Mg Tablet PO 40 mg DAILY MARY Administration Sodium Chloride 10 ml 01/07/25 22:24 Sodium Chloride Flush 0.9% 10 Ml Syringe IVP PRN PRN NEEDED PER PROVIDER ORDERS Sodium Chloride 10 ml 01/08/25 01:00 01/11/25 08:19 Sodium Chloride Flush 0.9% 10 Ml Syringe IVP 10 ml 0100,0900,1700 MARY Administration Objective Vital Signs/Intake & Output Reviewed Vital Signs: Yes Vital Signs: Vital Signs x48h Temp Pulse Resp BP Pulse Ox 01/11/25 16:43 36.6 C 79 18 121/56 L 97 Intake & Output: Intake & Output 01/08/25 01/09/25 01/10/25 01/11/25 23:59 23:59 23:59 23:59 Intake Total 2827 / 2827 1590 / 1590 570 / 570 730 / 730 Output Total 1050 / 1050 700 / 700 1200 / 1200 1500 / 1500 Balance 1777 / 1777 890 / 890 -630 / -630 -770 / -770 Objective General Appearance: positive No acute distress and Alert Eyes Bilateral: positive Normal inspection ENT: positive ENT inspection nml Neck: positive Nml inspection Respiratory: positive No respiratory distress and Breath sounds nml Cardiovascular: positive Regular rate & rhythm Abdomen: positive No distention Skin: positive Color nml Extremities: positive Non-tender and Other (operative dressing clean and dry) Neurologic/Psychiatric: positive Oriented x3 Lab Results 01/11/25 05:23 01/11/25 05:23 Other Labs: Lab Results x24hrs 01/11/25 Range/Units 05:23 WBC 9.4 (4.8-10.8) x10^3/uL RBC 2.96 L (4.20-5.40) 10^6/uL Hgb 8.7 L (12.0-16.0) g/dL Hct 28.1 L (37.0-47.0) % MCV 94.9 (81.0-99.0) fL MCH 29.4 (27.0-31.0) pg MCHC 31.0 L (32.0-36.0) g/dL RDW 17.5 H (12.0-15.0) % Plt Count 274 (130-450) 10^3/uL MPV 9.5 (7.9-10.8) fL Neut # (Auto) 6.5 (1.5-6.6) 10^3/uL Lymph # (Auto) 1.4 L (1.5-3.5) 10^3/uL [place] # (Auto) 1.0 (0.0-1.0) 10^3/uL Eos # (Auto) 0.4 (0.0-0.7) 10^3/uL Baso # (Auto) 0.1 (0.0-0.1) 10^3/uL Absolute Nucleated RBC 0.00 x10^3/uL Nucleated RBC % 0.0 /100WBC Sodium 137 (135-145) mmol/L Potassium 4.1 (3.5-4.5) mmol/L Chloride 105 (101-111) mmol/L Carbon Dioxide 26 (21-32) mmol/L Anion Gap 6.0 (6-13) BUN 20 (6-20) mg/dL Creatinine 1.1 (0.6-1.3) mg/dL Estimated GFR (MDRD) 47 L (>89) Glucose 127 H (74-104) mg/dL Calcium 8.8 (8.5-10.3) mg/dL Assessment/Plan Problem List (1) Fracture, intertrochanteric, right femur: Impression: POD #3 operative repair of right intertrochanteric femur fracture. She is doing well post op. She has pain, occasional hydrocodone is needed. She has been seen 2x by PT and recommendation is for SNF. Social work process is in progress. I will use Lovenox 40mg daily until dc then ASA 81MG daily until she has completed 4 weeks of tx. 2-3 week wound check and XRs in ortho clinic. I have started the patient on Calcium and Vit D for fracture healing She is medically clear for discharge. (2) Postoperative anemia: Impression: She was diagnosed w Fe def. after her surgery in Jun of this year. She is iron deficient currently. her Hgb has not dropped further post op. I will continue oral iron tx. 01/08/25 01/09/25 05:39 05:44 Hgb 10.4 L 9.0 L 07/19/24 15:53 Iron 29 L TIBC 249 L % Saturation 12 L Transferrin 178 L 01/10/25 05:00 Iron 25 L TIBC 232 L % Saturation 11 L Transferrin 166 L Vitamin B12 162 L (3) Delirium: Impression: At baseline, at home, she hallucinates. She has continued to do this and has had periods of agitation at night. last night, did much better with Olanzepine 5mg at HS- she has additional PRN doses ordered, but did not need them. (4) Edema: Impression: Progressive edema for several months. on echo she has a normal ejection fraction with restrictive filling pattern of the left ventricle and marked elevation of left ventricular filling pressures. consistent with cardiomyopathy. should have further evaluation in the outpatient setting. (5) Insomnia: Impression: I am continuing to discourage her use of ambien for chronic insomnia. I have discussed this with the patient and with her son. She is having confusion and hallucinations normally at home, and now hospital induced delirium. (6) Hypertension, essential, benign: Impression: I am monitoring her blood pressures and am continuing home metroprolol. (7) Kidney stone on right side: Impression: discussed with Dr Hernandez, procedure scheduled for 01/11, but he does not want to put patient in lithotomy position this soon post fracture repair. he will reschedule his procedure. (8) Hyperglycemia: Impression: This patient does not have diabetes. There was some mention of this, but her Hgb A1C in in non diabetic range. I have stopped sliding scale insulin and blood sugar checks. Glucose has been elevated on BMPs. Laboratory Tests 01/08/25 01/08/25 01/08/25 01:00 05:39 05:51 POC Whole Bld Glucose 135 125 Hemoglobin A1c % 5.5 01/08/25 01/08/25 07:34 16:50 POC Whole Bld Glucose 117 162 Hemoglobin A1c % This patient's diagnosis and treatment plan was discussed this AM with attending physician as a part of multi disciplinary rounding meeting. I have spent 28 minutes in the care of this patient today. This includes time [id number], review and ordering of diagnostic imaging and laboratory studies. Monitoring the patient's signs symptoms, evaluation of medication effectiveness and patient's response to treatment.
[2025-01-11] MEDS: SODIUM CHLORIDE FLUSH 0.9% 10 ML SYRINGE IVP PRN (17:56)
[2025-01-12 05:05] LABS: HCT - HEMATOCRIT 26.4 % (37.0-47.0); HGB - HEMOGLOBIN 8.2 g/dL (12.0-16.0); MEAN PLATELET VOLUME 9.5 fL (7.9-10.8); NRBC ABSOLUTE COUNT (AUTO) 0.00 x10^3/uL; NUCLEATED RED BLOOD CELLS AUTO 0.0 /100WBC; PLT - PLATELET COUNT 290 10^3/uL (130-450); RED CELL DISTRIBUTION WIDTH 17.3 % (12.0-15.0)
[2025-01-12 05:19] LABS: BUN - BLOOD UREA NITROGEN 21.0 mg/dL (6-20); CARBON DIOXIDE - CO2 23.0 mmol/L (21-32); CREATININE 1.0 mg/dL (0.6-1.3); GFR - MDRD 53.0 (>89)
[2025-01-12] MEDS: CHOLECALCIFEROL 25 MCG TABLET PO SCH (08:12)
--- NOTE | 2025-01-12 10:18 | Discharge Summary ---
Discharge Summary Admit Date: 01/07/25 Discharge Date: 01/12/25 Discharging Provider: Radha Teran PA-C Primary Care Provider: Martha Call PA-C Code Status: Do Not Attempt Resuscitation DIAGNOSES Discharge Diagnoses with Status of Each Condition: Right intertrochanteric femur fracture, status post repair Postoperative anemia, oral iron treatment Delirium, present at baseline Lower extremity edema, cardiomyopathy seen on echo needs outpatient cardiology evaluation Insomnia, chronic. Hypertension chronic and treated Right nephrolithiasis with recurrent urinary tract infections Hyperglycemia, normal hemoglobin A1c. HPI History of Present Illness: 84-year-old female with past medical history of nephrolithiasis, left hip fracture, chronic diarrhea, chronic pain, spontaneous subdural hematoma presents to the emergency department this evening after a mechanical ground-level fall at home. Her son had come up from [place] this evening and had run out to get takeout. When he came back he found his mother on the floor. She states that she had been standing and head turned to her right side and fallen. She is not quite sure what made her fall but she did not have any dizziness she did not pass out and she did not hit her head. It is possible that her hip gave way and she fell. She has a past medical history of hypertension treated with metoprolol. She denies any cardiac arrhythmias aside from occasional PVCs. She is seeing Dr. Hernandez for nephrolithiasis and has a procedure planned on Saturday. January 11. Dr. Hernandez is planning a cystoscopy, right ureteroscopy, laser lithotripsy and stent exchange. She was recently treated for a group B strep urinary tract infection. Urinalysis is pending at this time. She has some chronic shortness of breath. When she goes grocery shopping she usually uses one of the mechanical scooters. She does ambulate household distances without shortness of breath. She uses a four-wheel walker at all times. She no longer drives. She lives alone with 3 hours of caregiving help coming into the home per day. This patient takes Ambien to sleep whenever she can get the medication. I had a discussion with her son in the hallway and he relates to me that she has been having hallucinations at home. She sees things in the corner that are not there. She imagines that she has a second story on her home and people are playing music up there. He will frequently point out to her that these things are not real and she will often except this baby's hallucinations do seem to be recurrent in nature. She does not drink alcohol. She does not use tobacco products. She lives alone. She denies having a POLST form in place. Her son Prasanth is her designated surrogate medical decision maker. She is unquestionably a DNR resuscitation status. ALLERGIES Allergies Allergy/AdvReac Type Severity Reaction Status Date / Time adhesive tape Allergy Unknown Verified 01/07/25 18:24 ciprofloxacin (From Cipro) Allergy Unknown Verified 01/07/25 18:24 Penicillins AdvReac Anaphylaxis Verified 01/07/25 18:24 MEDICATIONS Ambulatory Orders Medication Instructions Recorded Confirmed acetaminophen 325 mg tablet 650 mg (2 x 325 mg) PO Q4H R PRN 01/12/25 Pain 1 to 4, or Fever #60 tabs calcium carbonate 500 mg (2.5 x 200 mg calcium (500 01/12/25 mg)) PO BID #60 tabs cholecalciferol (vitamin D3) 25 25 mcg PO DAILY #30 ta bs 01/12/25 mcg (1,000 unit) tablet cyclobenzaprine 5 mg tablet 5 mg PO DAILY PRN muscle s pasm #30 01/12/25 tabs enoxaparin 40 mg/0.4 mL 40 mg (0.4 mL) subcut DAILY 9 days 01/12/25 subcutaneous syringe #3.6 mL ferrous sulfate 325 mg (65 mg 325 mg PO DAILYWM #30 ta bs 01/12/25 iron) tablet furosemide 20 mg tablet 20 mg PO QAM PRN edema #90 t abs 01/12/25 hydrocodone 10 mg-acetaminophen 1 tab PO Q4HR PRN Mode rate Pain 01/12/25 325 mg tablet (Level 4-6) #60 tabs metoprolol succinate 25 mg 25 mg PO HS #90 tabs 01/08/25 tablet,extended release 24 hr pantoprazole 40 mg tablet,delayed 40 mg PO QDAC #30 ta bs 01/12/25 01/08/25 release paroxetine HCl 40 mg tablet 40 mg PO DAILY #30 tabs rosuvastatin 10 mg tablet 10 mg PO DAILY #30 tabs 12/19 11/11 PHYSICAL EXAM AT DISCHARGE Vital Signs: Vital Signs x48h Temp Pulse Resp BP Pulse Ox 01/12/25 14:45 37.0 C 81 16 104/47 L 95 Physical Exam Other/Comments: General Appearance: positive No acute distress and Alert Eyes Bilateral: positive Normal inspection ENT: positive ENT inspection nml Neck: positive Nml inspection Respiratory: positive No respiratory distress and Breath sounds nml Cardiovascular: positive Regular rate & rhythm Abdomen: positive No distention Skin: positive Color nml Extremities: positive Non-tender and Other (operative dressing clean and dry) Neurologic/Psychiatric: positive Oriented x2 LABS 01/12/25 04:43 01/12/25 04:43 FOLLOW UP Follow Up: Ortho clinic in 2-3 weeks for incision check and Xrays. PCP as scheduled. TIME SPENT Time Spent in Discharge (Minutes): 40 Discharge Plan Discharge Patient Disposition: [facility] DC/Xfer Condition: Good Medically Cleared Date:: 01/10/25 Prescriptions: New hydrocodone-acetaminophen 10-325 mg Tablet 1 tab PO Q4HR PRN (Reason: Moderate Pain (Level 4-6)) Qty: 60 0RF ferrous sulfate 325 mg (65 mg iron) Tablet 325 mg PO DAILYWM Qty: 30 0RF enoxaparin 40 mg/0.4 mL Syringe 40 mg subcut DAILY 9 Days Qty: 3.6 0RF cholecalciferol (vitamin D3) 25 mcg (1,000 unit) Tablet 25 mcg PO DAILY Qty: 30 0RF calcium carbonate 200 mg calcium (500 mg) Tablet,Chewable 500 mg PO BID Qty: 60 0RF acetaminophen 325 mg Tablet 650 mg PO Q4HR PRN (Reason: Pain 1 to 4, or Fever) Qty: 60 0RF Continued pantoprazole 40 mg tablet,delayed release (DR/EC) 40 mg PO QDAC Qty: 30 0RF furosemide 20 mg tablet 20 mg PO QAM PRN (Reason: edema) Qty: 90 0RF Rx Instructions: swelling metoprolol succinate 25 mg tablet extended release 24 hr 25 mg PO HS Qty: 90 0RF cyclobenzaprine 5 mg tablet 5 mg PO DAILY PRN (Reason: muscle spasm) Qty: 30 0RF Changed paroxetine HCl 40 mg tablet 40 mg PO DAILY Qty: 30 0RF Rx Instructions: for anxiety rosuvastatin 10 mg tablet 10 mg PO DAILY Qty: 30 0RF Discontinued zolpidem 10 mg tablet 10 mg PO HS Rx Instructions: for sleep Activity Restrictions: Wt Bearing as Tolerated Diet: Regular Health Concerns: You came to the emergency room after you fell. You had tripped and fell on the landing and you landed on her right side. You had some pain in the right hip and right knee and we found you to have a right hip fracture. We had to wait to medically clear you for your surgery. You underwent an uneventful right intratrochanteric femur fracture pinning. You lost a little bit of blood and need to take iron after surgery. When people fall down and stay in bed for a while they have a tendency to get blood clots so we reduce your risk of blood clots in your legs by giving you Lovenox daily. That will continue when you go to the half-way. You are unable to completely return to home to independent living so you will be going to a half-way for rehab. You have memory loss and at baseline you do get delirious at night. You continue that behavior here. You required 1 dose of olanzapine the entire time you were here. We are trying to discourage you from using Ambien for insomnia. It does give you more confusion at night. You have a kidney stone on the right side, but our urologist feels that he did not want to put you in the surgical position you need to be in for your surgery since you just had your right hip done. He will see you later and has rescheduled your procedure. Goal is for you to get stronger and better and go back to your previous facility. Print Language: Czech Patient Instructions: Surg Dc Stand Alone Forms: SNF Discharge Follow-up Care: Martha Call PA-C [Primary Care Provider, Family Practice] Report called to and time (if no answer, doc. time of each call attempted): a ttempted nurse to nurse report @ 1415 Vitals documented within 30 minutes of discharge?: Yes
[2025-01-12 14:57] VITALS: BP 104/47; TEMP 98.6; O2SAT 95
== END 2025-01-12 15:02 | DRG 481 ==
LOC: ED 18:14 → MS2 21:02
PROVIDERS: ADMIT Physician Assistant Medical; ATTEND Physician Assistant Medical
PROC: HIPNAIL (2025-01-08 10:00)